=== PATIENT | female | born 1940 | race Caucasian/White ===

== ENCOUNTER 2017-04-13 13:15 | Inpatient (IN) ==
[2017-04-13] MEDS ORDERED: methylPREDNISolone 125 MG/2 ML VIAL IVP ONE (13:18)
[2017-04-13] MEDS ORDERED: Ipratropium/Albuterol Neb 3 ML IH ONE (13:22)
[2017-04-13 13:55] LABS: Immature Granulocytes % 0.4 % (0-4)
[2017-04-13 13:57] LABS: Basophils # 0.1 K/mcL (0.0-0.2); Basophils % 0.7 %; Eosinophils # 0.2 K/mcL (0.0-0.6); Eosinophils % 1.7 %; Hematocrit 36.6 % (35.3-44.9); Hemoglobin 10.4 g/dL (11.5-15.4); Lymphocytes # 1.4 K/mcL (0.6-4.6); Lymphocytes % 14.8 %; Mean Corpuscular HGB Conc 28.4 g/dL (31.6-35.5); Mean Corpuscular Hemoglobin 26.3 pg (28.0-33.3); Mean Corpuscular Volume 92.4 fL (83.0-100.0); Mean Platelet Volume 9.8 fL (9.4-12.4); Monocytes # 0.6 K/mcL (0.0-1.3); Monocytes % 6.3 %; Neutrophils # 7.2 K/mcL (1.6-8.9); Platelet Count 264 K/mcL (140-400); Red Blood Count 3.96 M/mcL (3.82-4.97); Red Cell Distribution Width 17.6 % (11.5-14.5); Segmented Neutrophils % 76.1 %
[2017-04-13 14:07] LABS: BUN/Creatinine Ratio 21 (6-26); Blood Urea Nitrogen 20 mg/dL (7-20); Calcium 9.8 mg/dL (8.6-10.8); Carbon Dioxide 36 mEq/L (19-29); Chloride 100 mEq/L (98-109); Glucose 137 mg/dL (70-99); Osmolality,Calculated 303 (280-300); Potassium 3.9 mEq/L (3.5-4.5); Sodium 144 mEq/L (136-145); eGFR For African Americans > 60 (> 60); eGFR For Non-African Americans 58 (> 60)
--- NOTE | 2017-04-13 14:32 | Emergency Department Note ---
Disposition Clinical Impression: Atrial fibrillation with RVR Acute exacerbation of congestive heart failure Qualifiers: Congestive heart failure type: systolic Qualified Code(s): I50.23 - Acute on chronic systolic (congestive) heart failure Disposition: Home, Self-Care Time of Disposition: 16:48 General Adult HPI - General Chief complaint: ED Shortness of Breath/Dyspnea Stated complaint: SOB Time Seen by Provider: 04/13/17 13:16 Source: patient Limitations: no limitations Nursing Notes Reviewed: Yes Vital Signs Reviewed: Yes - History of Present Illness HPI Narrative: Patient is a 76-year-old female with history of COPD, CHF and is a patient of Dr. Cornejo. Patient was brought in by EMS secondary to the shortness of breath while at [facility] today. Patient is on O2 at home usually has O2 in her car. Patient was in a motorized scooter at the time of the without her O2. EMS states patient had profound hypoxia at 64% and patient would not lay back secondary for worsening of her shortness of breath. Pain Scale: 0 - Related Data Home Medications Medication Instructions Recorded Confirmed Albuterol Neb [Proventil Neb] 2.5 mg IH Q4HR PRN 09/27/15 04/13/17 Albuterol Sulfate [Albuterol 1 - 2 puff IH Q6HR 09/27/15 04/13/17 Inhaler] Aspirin [Adult Low Dose Aspirin EC] 81 mg PO DAILY 09/27/15 04/13/17 Budesonide/Formoterol 160/4.5 2 puff IH BIDR 09/27/15 04/13/17 [Symbicort 160/4.5] Cholecalciferol (Vitamin D3) 5,000 unit PO DAILY 09/27/15 04/13/17 [Vitamin D3] Citalopram Hydrobromide [Celexa] 20 mg PO DAILY 09/27/15 04/13/17 Esomeprazole Magnesium [Nexium] 40 mg PO DAILY 09/27/15 04/13/17 LORazepam [Ativan] 2 mg PO HS 09/27/15 04/13/17 Montelukast [Singulair] 10 mg PO DAILY 09/27/15 04/13/17 amLODIPine [Norvasc] 5 mg PO DAILY 09/27/15 04/13/17 Oxygen 4 l NS CONT 01/01/16 04/13/17 Atorvastatin [Lipitor] 10 mg PO HS 04/13/17 04/13/17 Ezetimibe [Zetia] 10 mg PO DAILY 04/13/17 04/13/17 Furosemide [Lasix] 80 mg PO Q48H 04/13/17 04/13/17 Metoprolol Succinate 100 mg PO DAILY 04/13/17 04/13/17 Omeprazole [PriLOSEC] 20 mg PO DAILY 04/13/17 04/13/17 Oxycodone HCl/Acetaminophen 1 tab PO Q4H PRN 04/13/17 04/13/17 [Percocet 10-325 mg Tablet] Rivaroxaban [Xarelto] 20 mg PO DAILY 04/13/17 04/13/17 Allergies Allergy/AdvReac Type Severity Reaction Status Date / Time codeine AdvReac Nausea Verified 01/01/16 07:19 All systems ED: reviewed and negative except as stated. Review of Systems: As Per HPI Constitutional: Denies: fever, chills, weakness Eyes: Denies: vision change ENT ED: Denies: congestion Cardiovascular: Reports: dyspnea on exertion, orthopnea. Denies: chest pain Respiratory: Reports: dyspnea Gastrointestinal: Denies: abdominal pain, nausea, vomiting, diarrhea Genitourinary: Denies: urgency, dysuria, frequency Musculoskeletal: Denies: back pain Neurological: Denies: headache Psychiatric: Reports: anxiety Endocrine: Reports: fatigue Past Medical History - Past Medical History Attestation: Yes The following information was validated with the patient. Medical history: Reports: arthritis, asthma, COPD, coronary artery disease, diabetes, GERD, hyperlipidemia, hypertension, osteoporosis, other Surgical history: Reports: non-contributory, carotid endarterectomy, cholecystectomy, hysterectomy, other Psychiatric history: Reports: anxiety, depression - Social History Smoking Status: Former smoker Smokeless Tobacco Status: No Alcohol use: Reports: none Drug use: Reports: none Physical Exam Vital Signs Temperature 97.9 F 04/13/17 13:19 Pulse Rate 122 04/13/17 13:19 Respiratory Rate 26 04/13/17 13:19 Blood Pressure 141/76 04/13/17 13:19 O2 Sat by Pulse Oximetry 95 04/13/17 13:19 Temperature 97.9 F 04/13/17 13:19 Pulse Rate 101 04/13/17 15:04 Respiratory Rate 22 04/13/17 15:04 Blood Pressure 122/93 04/13/17 15:04 O2 Sat by Pulse Oximetry 95 04/13/17 15:04 Oxygen Delivery Oxygen Delivery Bipap Patient is a 76-year-old female who is alert and oriented 3 and in acute distress. Patient has come conversational dyspnea, sitting erect on the cot and cannot recline without feeling shortness of breath. - General Limitations: no limitations General appearance: alert, anxious - Head Head exam: atraumatic, normocephalic, normal inspection - Eye Eye exam: Present: normal appearance, PERRL, EOMI - ENT ENT exam: normal exam, normal oropharynx, mucous membranes moist - Neck Neck exam: Present: normal inspection, full ROM, trachea midline - Chest Chest inspection: Present: normal inspection, symmetric chest wall rise. Absent : tenderness - Respiratory Respiratory exam: Present: respiratory distress, wheezes, accessory muscle use, other (Bilateral Rales lower lung luther as well as diminished lung sounds in lower lung luther. ) - Cardiovascular Cardiovascular exam: Present: irregular rhythm. Absent: regular rate - Abdominal Exam Abdominal exam: Present: soft. Absent: distention Course Vital Signs Temperature 97.9 F 04/13/17 13:19 Pulse Rate 122 04/13/17 13:19 Respiratory Rate 26 04/13/17 13:19 Blood Pressure 141/76 04/13/17 13:19 O2 Sat by Pulse Oximetry 95 04/13/17 13:19 Temperature 97.9 F 04/13/17 13:19 Pulse Rate 108 04/13/17 15:56 Respiratory Rate 22 04/13/17 15:56 Blood Pressure 104/60 04/13/17 15:56 O2 Sat by Pulse Oximetry 92 04/13/17 15:56 Oxygen Delivery Oxygen Delivery Nasal Cannula Medical Decision Making - [facility] Narrative Medical decision making narrative: Patient brought in for shortness of breath with orthopnea and severe hypoxia is in CHF exacerbation. Patient is placed on BiPAP. Chest x-ray shows no pneumonia, but shows pulmonary vascular congestion. Patient has elevation of her BNP. Patient was started on Lasix 40 mg IV. Patient is also in A. fib RVR. Was placed on BiPAP patient's rate improved. The patient's currently not in RPR still in A. fib. After BiPAP patients able to breathe comfortably. Patient has no regular Diane abnormalities at this time. Lactic acid and troponin were negative for elevations Patient is being admitted for CHF exacerbation with A. fib RVR. Patient understands and agrees to a decision to admit. Dr. Ca the hospitalist who accepted patient for admission at 1544 hrs. - Lab Data Lab results reviewed: Yes I reviewed the patient's lab results. Lab results narrative: Short CBC 04/13/17 Range/Units 13:40 WBC 9.4 (4.3-11.1) K/mcL Hgb 10.4 L (11.5-15.4) g/dL Hct 36.6 (35.3-44.9) % Plt Count 264 (140-400) K/mcL Neutrophils # 7.2 (1.6-8.9) K/mcL BMP 04/13/17 Range/Units 13:40 Sodium 144 (136-145) mEq/L Potassium 3.9 (3.5-4.5) mEq/L Chloride 100 (98-109) mEq/L Carbon Dioxide 36 H (19-29) mEq/L BUN 20 (7-20) mg/dL Creatinine 0.94 (0.57-1.11) mg/dL Glucose 137 H (70-99) mg/dL Calcium 9.8 (8.6-10.8) mg/dL Cardiac Enzymes 04/13/17 Range/Units 13:40 Troponin I 0.02 (0-0.03) ng/mL Result diagrams: 04/13/17 13:40 04/13/17 13:40 Lab Results 04/13/17 04/13/17 04/13/17 Range/Units 13:40 13:40 13:40 WBC 9.4 (4.3-11.1) K/mcL RBC 3.96 (3.82-4.97) M/mcL Hgb 10.4 L (11.5-15.4) g/dL Hct 36.6 (35.3-44.9) % MCV 92.4 (83.0-100.0) fL MCH 26.3 L (28.0-33.3) pg MCHC 28.4 L (31.6-35.5) g/dL RDW 17.6 H (11.5-14.5) % Plt Count 264 (140-400) K/mcL MPV 9.8 (9.4-12.4) fL Immature Gran % 0.4 (0-4) % Seg Neutrophils % 76.1 % Lymphocytes % 14.8 % Monocytes % 6.3 % Eosinophils % 1.7 % Basophils % 0.7 % Neutrophils # 7.2 (1.6-8.9) K/mcL Lymphocytes # 1.4 (0.6-4.6) K/mcL Monocytes # 0.6 (0.0-1.3) K/mcL Eosinophils # 0.2 (0.0-0.6) K/mcL Basophils # 0.1 (0.0-0.2) K/mcL Platelet Estimate Normal (Normal) Hypochromasia Present A (Not Present) Anisocytosis 1+ A (Not Present) Sodium 144 (136-145) mEq/L Potassium 3.9 (3.5-4.5) mEq/L Chloride 100 (98-109) mEq/L Carbon Dioxide 36 H (19-29) mEq/L BUN 20 (7-20) mg/dL Creatinine 0.94 (0.57-1.11) mg/dL Est GFR ( Amer) > 60 (> 60) Est GFR (Non-Af Amer) 58 L (> 60) BUN/Creatinine Ratio 21 (6-26) Glucose 137 H (70-99) mg/dL Calculated Osmolality 303 H (280-300) Lactic Acid 1.7 (0.5-2.2) mmol/L Calcium 9.8 (8.6-10.8) mg/dL Troponin I (0-0.03) ng/mL B-Natriuretic Peptide (0-100) pg/mL 04/13/17 04/13/17 Range/Units 13:40 13:40 WBC (4.3-11.1) K/mcL RBC (3.82-4.97) M/mcL Hgb (11.5-15.4) g/dL Hct (35.3-44.9) % MCV (83.0-100.0) fL MCH (28.0-33.3) pg MCHC (31.6-35.5) g/dL RDW (11.5-14.5) % Plt Count (140-400) K/mcL MPV (9.4-12.4) fL Immature Gran % (0-4) % Seg Neutrophils % % Lymphocytes % % Monocytes % % Eosinophils % % Basophils % % Neutrophils # (1.6-8.9) K/mcL Lymphocytes # (0.6-4.6) K/mcL Monocytes # (0.0-1.3) K/mcL Eosinophils # (0.0-0.6) K/mcL Basophils # (0.0-0.2) K/mcL Platelet Estimate (Normal) Hypochromasia (Not Present) Anisocytosis (Not Present) Sodium (136-145) mEq/L Potassium (3.5-4.5) mEq/L Chloride (98-109) mEq/L Carbon Dioxide (19-29) mEq/L BUN (7-20) mg/dL Creatinine (0.57-1.11) mg/dL Est GFR ( Amer) (> 60) Est GFR (Non-Af Amer) (> 60) BUN/Creatinine Ratio (6-26) Glucose (70-99) mg/dL Calculated Osmolality (280-300) Lactic Acid (0.5-2.2) mmol/L Calcium (8.6-10.8) mg/dL Troponin I 0.02 (0-0.03) ng/mL B-Natriuretic Peptide 779 H (0-100) pg/mL - Radiology Data Radiology results reviewed: Yes I reviewed the patient's radiology results. Chest X-Ray 04/13/17 13:18 IMPRESSION: Cardiomegaly with vascular congestion. D/ / Ramses Zuniga MD / Ramses Zuniga MD Interpreting Provider: Ramses Zuniga MD - EKG Data EKG #1 EKG attestation: Yes I reviewed and interpreted this EKG. EKG results narrative: EKG taken 04/13/2017 at 1345 hrs. shows A. fib RVR at a rate of [address] depression in V2 and V3. No acute ST elevations any leads. No QRS widening or QT prolongation his EKG shows sinus rhythm at a rate of [address] elevations or depressions in any leads. This EKG taken 12/14/2015 Attestation Statement - Attestation Attestation: I, Zackery Greer DO, examined this patient [id number] and my medical decision-making was reviewed with Dr. Nadeem Wade, Resident Physician. I agree with the documented findings, disposition and treatment plan as described except to the extent set forth below. Please see my progress notes for details.
[2017-04-13 14:34] LABS: Anisocytosis 1+ (Not Present); Hypochromasia Present (Not Present); Platelet Estimate Normal (Normal)
[2017-04-13] MEDS ORDERED: Furosemide 40 MG/4 ML VIAL IVP ONE (14:40)
--- NOTE | 2017-04-13 15:11 | Emergency Department Note ---
Disposition Disposition: Home, Self-Care Referrals: Igor Fuentes Jr, MD [Primary Care Provider] - Forms: ED Satisfaction Letter General Adult HPI - General Chief complaint: ED Shortness of Breath/Dyspnea Stated complaint: SOB Time Seen by Provider: 04/13/17 13:16 Source: patient Limitations: no limitations - History of Present Illness Pain Scale: 0 - Related Data Home Medications Medication Instructions Recorded Confirmed Albuterol Neb [Proventil Neb] 2.5 mg IH Q4HR PRN 09/27/15 04/13/17 Albuterol Sulfate [Albuterol 1 - 2 puff IH Q6HR 09/27/15 04/13/17 Inhaler] Aspirin [Adult Low Dose Aspirin EC] 81 mg PO DAILY 09/27/15 04/13/17 Budesonide/Formoterol 160/4.5 2 puff IH BIDR 09/27/15 04/13/17 [Symbicort 160/4.5] Cholecalciferol (Vitamin D3) 5,000 unit PO DAILY 09/27/15 04/13/17 [Vitamin D3] Citalopram Hydrobromide [Celexa] 20 mg PO DAILY 09/27/15 04/13/17 Esomeprazole Magnesium [Nexium] 40 mg PO DAILY 09/27/15 04/13/17 LORazepam [Ativan] 2 mg PO HS 09/27/15 04/13/17 Montelukast [Singulair] 10 mg PO DAILY 09/27/15 04/13/17 amLODIPine [Norvasc] 5 mg PO DAILY 09/27/15 04/13/17 Oxygen 4 l NS CONT 01/01/16 04/13/17 Atorvastatin [Lipitor] 10 mg PO HS 04/13/17 04/13/17 Ezetimibe [Zetia] 10 mg PO DAILY 04/13/17 04/13/17 Furosemide [Lasix] 80 mg PO Q48H 04/13/17 04/13/17 Metoprolol Succinate 100 mg PO DAILY 04/13/17 04/13/17 Omeprazole [PriLOSEC] 20 mg PO DAILY 04/13/17 04/13/17 Oxycodone HCl/Acetaminophen 1 tab PO Q4H PRN 04/13/17 04/13/17 [Percocet 10-325 mg Tablet] Rivaroxaban [Xarelto] 20 mg PO DAILY 04/13/17 04/13/17 Allergies Allergy/AdvReac Type Severity Reaction Status Date / Time codeine AdvReac Nausea Verified 01/01/16 07:19 Past Medical History - Past Medical History Medical history: Reports: arthritis, asthma, COPD, coronary artery disease, diabetes, GERD, hyperlipidemia, hypertension, osteoporosis, other Surgical history: Reports: non-contributory, carotid endarterectomy, cholecystectomy, hysterectomy, other Psychiatric history: Reports: anxiety, depression - Social History Smoking Status: Former smoker Smokeless Tobacco Status: No Alcohol use: Reports: none Drug use: Reports: none Physical Exam - General Limitations: no limitations General appearance: alert, anxious Course Vital Signs Temperature 97.9 F 04/13/17 13:19 Pulse Rate 122 04/13/17 13:19 Respiratory Rate 26 04/13/17 13:19 Blood Pressure 141/76 04/13/17 13:19 O2 Sat by Pulse Oximetry 95 04/13/17 13:19 Temperature 97.9 F 04/13/17 13:19 Pulse Rate 101 04/13/17 15:04 Respiratory Rate 22 04/13/17 15:04 Blood Pressure 122/93 04/13/17 15:04 O2 Sat by Pulse Oximetry 95 04/13/17 15:04 Oxygen Delivery Oxygen Delivery Bipap Medical Decision Making - Lab Data Result diagrams: 04/13/17 13:40 04/13/17 13:40 Lab Results 04/13/17 04/13/17 04/13/17 Range/Units 13:40 13:40 13:40 WBC 9.4 (4.3-11.1) K/mcL RBC 3.96 (3.82-4.97) M/mcL Hgb 10.4 L (11.5-15.4) g/dL Hct 36.6 (35.3-44.9) % MCV 92.4 (83.0-100.0) fL MCH 26.3 L (28.0-33.3) pg MCHC 28.4 L (31.6-35.5) g/dL RDW 17.6 H (11.5-14.5) % Plt Count 264 (140-400) K/mcL MPV 9.8 (9.4-12.4) fL Immature Gran % 0.4 (0-4) % Seg Neutrophils % 76.1 % Lymphocytes % 14.8 % Monocytes % 6.3 % Eosinophils % 1.7 % Basophils % 0.7 % Neutrophils # 7.2 (1.6-8.9) K/mcL Lymphocytes # 1.4 (0.6-4.6) K/mcL Monocytes # 0.6 (0.0-1.3) K/mcL Eosinophils # 0.2 (0.0-0.6) K/mcL Basophils # 0.1 (0.0-0.2) K/mcL Platelet Estimate Normal (Normal) Hypochromasia Present A (Not Present) Anisocytosis 1+ A (Not Present) Sodium 144 (136-145) mEq/L Potassium 3.9 (3.5-4.5) mEq/L Chloride 100 (98-109) mEq/L Carbon Dioxide 36 H (19-29) mEq/L BUN 20 (7-20) mg/dL Creatinine 0.94 (0.57-1.11) mg/dL Est GFR ( Amer) > 60 (> 60) Est GFR (Non-Af Amer) 58 L (> 60) BUN/Creatinine Ratio 21 (6-26) Glucose 137 H (70-99) mg/dL Calculated Osmolality 303 H (280-300) Lactic Acid 1.7 (0.5-2.2) mmol/L Calcium 9.8 (8.6-10.8) mg/dL Troponin I (0-0.03) ng/mL B-Natriuretic Peptide (0-100) pg/mL 04/13/17 04/13/17 Range/Units 13:40 13:40 WBC (4.3-11.1) K/mcL RBC (3.82-4.97) M/mcL Hgb (11.5-15.4) g/dL Hct (35.3-44.9) % MCV (83.0-100.0) fL MCH (28.0-33.3) pg MCHC (31.6-35.5) g/dL RDW (11.5-14.5) % Plt Count (140-400) K/mcL MPV (9.4-12.4) fL Immature Gran % (0-4) % Seg Neutrophils % % Lymphocytes % % Monocytes % % Eosinophils % % Basophils % % Neutrophils # (1.6-8.9) K/mcL Lymphocytes # (0.6-4.6) K/mcL Monocytes # (0.0-1.3) K/mcL Eosinophils # (0.0-0.6) K/mcL Basophils # (0.0-0.2) K/mcL Platelet Estimate (Normal) Hypochromasia (Not Present) Anisocytosis (Not Present) Sodium (136-145) mEq/L Potassium (3.5-4.5) mEq/L Chloride (98-109) mEq/L Carbon Dioxide (19-29) mEq/L BUN (7-20) mg/dL Creatinine (0.57-1.11) mg/dL Est GFR ( Amer) (> 60) Est GFR (Non-Af Amer) (> 60) BUN/Creatinine Ratio (6-26) Glucose (70-99) mg/dL Calculated Osmolality (280-300) Lactic Acid (0.5-2.2) mmol/L Calcium (8.6-10.8) mg/dL Troponin I 0.02 (0-0.03) ng/mL B-Natriuretic Peptide 779 H (0-100) pg/mL
--- NOTE | 2017-04-13 15:14 | Emergency Department Note ---
START Narrative - START START: Patient seen and examined the time of arrival by EMS. 76-year-old female presents with shortness of breath. She had intermittent symptoms with this over the last several years including COPD and congestive heart failure. She has not been using her CPAP machine at night secondary to breaking. She does require oxygen throughout the day. She was using her oxygen today and coming into the grocery store when she gets significantly short of breath and decided to come to the emergency room. Symptoms of an coming on over the last several weeks. Patient denies any chest pain she does have exertional and conversational dyspnea at this point. She also has visible orthopnea. Lungs are clear except for some intermittent wheezing in the periphery of the lung luther. Patient's heart is tachycardic with known A. fib. Most likely secondary to respiratory demand at this time. Abdomen is soft nontender nondistended she does have pitting edema in the lower extremities. Concern is noted for fluid overload, acute exacerbation of A. fib with RVR, congestive heart failure. Patient be treated as such with troponin chest x-ray EKG. Left relative to be completed. First dose of IV Lasix to be given and BiPAP to be applied. Disposition will most likely admission to the hospital. Prostate 35 minutes of critical care provider this patient independent of medical intervention procedures or consultations. EKG shows A. fib with tachycardia with normal morphology comparison to previous EKGs. Chest x-ray and the rest of laboratory workup are pending patient will need admission for definitive evaluation and management see detailed documentation of the physical exam, medical intervention, medical decision-making, consultations and disposition and the resident physician's note [id number] Heart rate has resolved with the BiPAP machine. Patient does have clinical findings concerning for fluid overload and congestive heart failure. Hypoxia was resolved with oxygen being applied here. Admission process to be completed.
[2017-04-13] MEDS ORDERED: Naloxone 0.4 MG/ML INJ IVP PRN (16:26)
[2017-04-13] MEDS ORDERED: Ondansetron 4 MG/2 ML VIAL IVP PRN (16:26)
[2017-04-13] MEDS ORDERED: Albuterol 2.5 MG/3 ML NEBULIZER IH PRN (16:31)
[2017-04-13] MEDS ORDERED: Dextrose Gel 15 GM PO PRN ×2 (16:31)
[2017-04-13] MEDS ORDERED: D5% in Water 1,000 ML IVC PRN (16:31)
[2017-04-13] MEDS ORDERED: *HR* Dextrose 50 % in Water (Syg) 50 ML SYRINGE IVP PRN (16:31)
--- NOTE | 2017-04-13 18:08 | Internal Med History&Physical ---
Date of Encounter: 04/14/17 Time of Encounter: 18:08 Assessment and Plan (1) Acute and chronic respiratory failure with hypoxia Current visit: No Status: Acute 1 patient has been experiencing increasing shortness of breath most likely related to diastolic heart failure from A. fib RVR response. We will diurese, rate control as well as oxygen titrated to maintain SPO2 greater than 92% (2) Atrial fibrillation with RVR Current visit: Yes Status: Acute 1 present with A. fib RVR will continue with Xarelto as well as metoprolol for rate control 2. Consult cardiology 3 continues cardiac monitoring (3) Acute exacerbation of congestive heart failure Current visit: Yes Status: Acute Echo 05/14 showed EF of 60% with mild diastolic dysfunction. We will continue diuresis patient Continue with oxygen titrated to maintain SPO2 greater than 92% Continuous cardiac monitoring Fluid restriction low sodium diet Monitor intake and output daily weights Qualifiers: Congestive heart failure type: systolic Qualified Code(s): I50.23 - Acute on chronic systolic (congestive) heart failure (4) Acute exacerbation of chronic obstructive airways disease Current visit: No Status: Acute 1 . Patient has history of COPD oxygen dependent. We will continue with oxygen titrating to maintain SPO2 greater than 92% 2 continue with bronchodilators 3 oral steroids to taper (5) Diabetes mellitus Current visit: No Status: Acute Accu-Cheks before meals at bedtime for sinus, insulin 2 diabetic diet Qualifiers: Diabetes mellitus type: type 2 Diabetes mellitus complication status: without complication Diabetes mellitus long term care administrator insulin use: with long term care administrator use Qualified Code(s): E11.9 - Type 2 diabetes mellitus without complications ; Z79.4 - retirement (current) use of insulin; Z79.4 - retirement (current) use of insulin; 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 Castillo is a 76 year old female COPD I will should dependent CHF CAD nonobstructive diabetes GERD CRISTOPHER paroxysmal atrial fibrillation carotid stenosis. According to the patient she has been experiencing intermittent shortness of breath and a few months ago she was hospitalized at [facility] at that time she was diagnosed with atrial fibrillation was placed on Xarelto. She does have obstructive sleep apnea and is on CPAP at night however she has not been using it due to machine is broken. She was referred to cardiology and was seen by Dr. Segal today after office visit she is going to the grocery store and was walking into the store and was becoming increasing short of breath with some intermittent shoulder pain which resolved on its own. She was brought to the ER for evaluation and upon presentation tachycardic in A. fib RVR tachypneic with conversational dyspnea and intermittent wheezing. Chest x-ray showed vascular congestion and cardiomegaly elevated BNP at 779 lactate was 1.7 troponin is 0.02 she was given IV Lasix as well as steroids and has been admitted for further workup and evaluation. Presently patient does appear to display conversational dyspnea and become short of breath on exertion. She has faint expiratory wheeze SPO2 is 92% on 3 L nasal cannula. Otherwise she is hemodynamically stable Past Med Surg Social Fam HX - Past Medical History Medical history: arthritis, asthma, COPD, coronary artery disease, diabetes, GERD, hyperlipidemia, hypertension, osteoporosis, other Psychiatric history: anxiety, depression - Past Surgical History Surgical History: non-contributory, carotid endarterectomy, cholecystectomy, hysterectomy, other - Social History Smoking Status: Former smoker Smokeless Tobacco Status: No Alcohol use: none Drug use: none - Family History Mother Living Status: Hx Family Cardiac Disorders: Yes ([place]) Hx Family Respiratory Disorders: No Hx Family Cancer: No Hx Family GI Disorders: Yes Internal Medicine - H&P: Meds Albuterol Neb [Proventil Neb] 2.5 mg IH Q4HR PRN 09/27/15 [History] Albuterol Sulfate [Albuterol Inhaler] 1 - 2 puff IH Q6HR 09/27/15 [History] Aspirin [Adult Low Dose Aspirin EC] 81 mg PO DAILY 09/27/15 [History] Budesonide/Formoterol 160/4.5 [Symbicort 160/4.5] 2 puff IH BIDR 09/27/15 [ History] Cholecalciferol (Vitamin D3) [Vitamin D3] 5,000 unit PO DAILY 09/27/15 [History] Citalopram Hydrobromide [Celexa] 20 mg PO DAILY 09/27/15 [History] Esomeprazole Magnesium [Nexium] 40 mg PO DAILY 09/27/15 [History] LORazepam [Ativan] 2 mg PO HS 09/27/15 [History] Montelukast [Singulair] 10 mg PO DAILY 09/27/15 [History] amLODIPine [Norvasc] 5 mg PO DAILY 09/27/15 [History] Oxygen 4 l NS CONT 01/01/16 [History] Atorvastatin [Lipitor] 10 mg PO HS 04/13/17 [History] Ezetimibe [Zetia] 10 mg PO DAILY 04/13/17 [History] Furosemide [Lasix] 80 mg PO Q48H 04/13/17 [History] Metoprolol Succinate 100 mg PO DAILY 04/13/17 [History] Omeprazole [PriLOSEC] 20 mg PO DAILY 04/13/17 [History] Oxycodone HCl/Acetaminophen [Percocet 10-325 mg Tablet] 1 tab PO Q4H PRN [History] Rivaroxaban [Xarelto] 20 mg PO DAILY 04/13/17 [History] 3 Allergy/AdvReac Type Severity Reaction Status Date / Time codeine AdvReac Nausea Verified 01/01/16 07:19 All Systems PM: A 10-system review of systems was performed and is negative for pertinent findings except as documented above in the HPI. - Constitutional Constitutional: fatigue, no chills, no fever(s), no night sweats - EENT Eyes: no change in vision, no discharge, no pain, no photophobia Nose, mouth and throat: no dysphagia, no nasal discharge, no neck pain, no sore throat - Cardiovascular Cardiovascular ROS IM: dyspnea, dyspnea on exertion, orthopnea, no chest pain, no diaphoresis, no lightheadedness, no palpitations, no syncope - Respiratory Respiratory: wheezing, no cough, no dyspnea, no excessive phlegm production - Gastrointestinal Gastrointestinal: no abdominal pain, no diarrhea, no hematemesis, no hematochezia, no melena, no nausea, no vomiting - Genitourinary Genitourinary: no change in urinary stream, no dysuria, no flank pain, no hematuria - Musculoskeletal Musculoskeletal ROS IM: no numbness, no tingling - Integumentary Integumentary IM: no rash, no unusual bruising - Neurological Neurological ROS: no confusion, no convulsions, no focal weakness, no numbness, no tingling, no tremor(s) - Constitutional Vitals: Temp Pulse Resp BP Pulse Ox 97.9 F 64 22 83/69 93 04/13/17 17:03 04/13/17 17:30 04/13/17 17:30 04/13/17 17:30 04/13/17 17:30 General appearance: Present: A&O X 3, answers questions appropriately - Head Head exam: Present: atraumatic, normocephalic - Eye Eye exam: Present: PERRL, conjuntiva pink, sclera anicteric Pupils: Present: PERRL - Neck Neck exam general surgery: Present: supple, trachea midline. Absent: lymphadenopathy - Respiratory Respiratory exam: Present: wheezes - Cardiovascular Cardiovascular exam: Present: RRR, +S1, +S2. Absent: diastolic murmur, gallop, rubs, systolic murmur - GI/Abdominal GI/Abdominal exam: Present: normal bowel sounds, soft, no peritoneal signs. Absent: distended, tenderness - Extremities Exam Extremities exam: Present: warm, radial pulses palpable and symmetrical. Absent : calf tenderness, cyanotic, pedal edema - Neurological Exam Neurological exam: Present: CN II-XII intact, oriented X3, no focal deficits. Absent: pronater drift, facial droop, speech deficit Internal Med - H&P Results - Labs CBC & Chem 7: 04/13/17 13:40 04/13/17 13:40 - EKG Data EKG comments: 04/13/17 19:06 Atrial fibrillation with RVR - Diagnostic Studies Other Images Additional comments: Chest X-Ray 04/13/17 13:18 IMPRESSION: Cardiomegaly with vascular congestion. D/ / Ramses Zuniga MD / Rmases Zuniga MD Interpreting Provider: Ramses Zuniga MD
[2017-04-13] MEDS: methylPREDNISolone 125 MG/2 ML VIAL IVP SCH ×2 (18:51→23:30)
[2017-04-13] MEDS: Ipratropium/Albuterol Neb 3 ML IH SCH ×2 (20:06→23:34)
[2017-04-13] MEDS: Budesonide/Formoterol 160/4.5 MDI IH SCH (20:06)
[2017-04-13] MEDS: *HR* LORazepam 1 MG TABLET PO SCH (21:24)
[2017-04-13] MEDS: Insulin LISPRO 300 UNITS/3 ML VIAL SQ SCH (21:44)
[2017-04-13] MEDS: Acetaminophen 325 MG TABLET PO PRN (23:29)
[2017-04-14] MEDS ORDERED: *HR* Digoxin 0.5 MG/2 ML AMPUL IVP ONE (00:40)
--- NOTE | 2017-04-14 00:40 | Event Note ---
Date of Encounter: 04/14/17 Time of Encounter: 00:36 Patient seen and examined with nurse practitioner. Agree with assessment and plan. Patient presents with shortness of breath due to diastolic congestive heart failure likely related to atrial fibrillation with rapid ventricular response. Start patient on IV Lasix. Patient also has an element of COPD with mild exacerbation. We will keep her on as needed nebulizer treatment as well as steroids. Patient also has slight redness warmth and tenderness of the left leg due to cellulitis so will start the patient on Bactrim. Patient has a-fib with rapid response rate currently is in the 120s. Will give the patient digoxin .25 mg IV push once since her blood pressure is borderline low. Will hold blood pressure lowering medications for now. Full code
[2017-04-14 01:31] LABS: Basophils % 0.3 %; Hemoglobin 9.8 g/dL (11.5-15.4); Mean Platelet Volume 9.9 fL (9.4-12.4)
[2017-04-14 01:33] LABS: Hematocrit 33.6 % (35.3-44.9); Lymphocytes # 0.5 K/mcL (0.6-4.6); Lymphocytes % 7.3 %; Mean Corpuscular HGB Conc 29.2 g/dL (31.6-35.5); Mean Corpuscular Hemoglobin 26.2 pg (28.0-33.3); Mean Corpuscular Volume 89.8 fL (83.0-100.0); Monocytes % 0.5 %; Neutrophils # 6.6 K/mcL (1.6-8.9); Platelet Count 271 K/mcL (140-400); Red Blood Count 3.74 M/mcL (3.82-4.97); Red Cell Distribution Width 17.4 % (11.5-14.5); Segmented Neutrophils % 90.9 %
[2017-04-14 01:50] LABS: BUN/Creatinine Ratio 20 (6-26); Blood Urea Nitrogen 20 mg/dL (7-20); Calcium 9.6 mg/dL (8.6-10.8); Carbon Dioxide 33 mEq/L (19-29); Chloride 98 mEq/L (98-109); Cholesterol 157 mg/dL (< 200); Glucose 258 mg/dL (70-99); HDL Cholesterol 39 mg/dL (40-59); LDL Cholesterol,Calculated 100 mg/dL (0-99); Magnesium 1.9 mg/dL (1.6-2.6); Osmolality,Calculated 305 (280-300); Potassium 3.6 mEq/L (3.5-4.5); Sodium 142 mEq/L (136-145); Triglycerides 89 mg/dL (< 150); eGFR For African Americans > 60 (> 60); eGFR For Non-African Americans 54 (> 60)
[2017-04-14 02:19] LABS: Anisocytosis 1+ (Not Present); Hypochromasia Present (Not Present); Platelet Estimate Normal (Normal); Poikilocytosis 1+ (Not Present); Polychromasia 1+ (Not Present)
[2017-04-14] MEDS: Acetaminophen 325 MG TABLET PO PRN (04:39)
[2017-04-14] MEDS ORDERED: *HR* OxyCODONE/APAP 10/325 TABLET PO PRN (07:51)
[2017-04-14] MEDS: Budesonide/Formoterol 160/4.5 MDI IH SCH ×2 (08:03→22:40)
[2017-04-14] MEDS: predniSONE 20 MG TABLET PO SCH (08:15)
[2017-04-14] MEDS: *HR* Rivaroxaban 10 MG TABLET PO SCH (08:15)
[2017-04-14] MEDS: Metoprolol XL (24 HR) Succ 50 MG TAB.ER.24H PO SCH (08:16)
[2017-04-14] MEDS: Sulfamethoxazole/Trimeth DS 1 EACH TABLET PO SCH ×2 (08:16→21:20)
[2017-04-14] MEDS: Aspirin Enteric Coated 81 MG Tablet PO SCH (08:16)
[2017-04-14] MEDS: Cholecalciferol (D-3) 1,000 UNIT TABLET PO SCH (08:16)
[2017-04-14] MEDS: Insulin LISPRO 300 UNITS/3 ML VIAL SQ SCH ×4 (08:17→21:16)
[2017-04-14] MEDS: Furosemide 40 MG/4 ML VIAL IVP SCH (08:18)
[2017-04-14] MEDS ORDERED: Metoprolol XL (24 HR) Succ 50 MG TAB.ER.24H PO SCH (09:00)
[2017-04-14] MEDS ORDERED: Pantoprazole 40 MG VIAL IVP SCH (09:00)
[2017-04-14] MEDS ORDERED: amLODIPine 5 MG TABLET PO SCH (09:00)
--- NOTE | 2017-04-14 09:38 | Cardiology Consult Note ---
Date of Encounter: 04/14/17 Time of Encounter: 09:37 Assessment and Plan (1) Acute exacerbation of congestive heart failure Current Visit: Yes Status: Acute Suspected diastolic CHF driven by A-Fib RVR. Dyspnea also likely secondary to not wearing O2 all day yesterday, as she is usually on 3-4 L 19/01. BNP 779, CXR with cardiomegaly and vascular congestion. Reports LE edema is better than baseline. Reports drinking excess fluid >2L/day. Agree with IV diuresis. Recommend daily weights, Na and fluid restriction, strict I/Os. Echo 04/2016 EF 60%, mild diastolic dysfunction. Recheck echo to evaluate EF. If no significant findings on echo, anticipate sign off from cardio standpoint. Qualifiers: Congestive heart failure type: diastolic Qualified Code(s): I50.33 - Acute on chronic diastolic (congestive) heart failure (2) Atrial fibrillation with RVR Current Visit: Yes Status: Acute PAF. Converted back to SR this AM. Hr currently 70s, SR. Continue Toprol XL 100mg daily. Anticoagulated on Xarelto. HGB 9.8, tends to fluctuate. Denies active bleeding. Discussion w patient/family: The assessment and plan as outlined above was discussed with the patient and/or family members who expressed understanding and agreement. All questions were answered. Thank you for involving us in the care of your patient. Please call with any questions. I will discuss all the above with Dr. Phillips and make changes as necessary. History of Present Illness Consult date: 04/14/17 Requesting physician: Sylvia Woods Consult reason: Diastolic CHF, A-Fib RVR Chief complaint: Dyspnea, weakness History of present illness: Ms. Castillo is a 76 year old female with PMH of oxygen dependent COPD, diastolic CHF, nonobstructive CAD, diabetes, GERD, CRISTOPHER, paroxysmal atrial fibrillation, carotid stenosis. According to the patient she has been experiencing intermittent shortness of breath and a few months ago she was hospitalized at [facility] at that time she was diagnosed with atrial fibrillation was placed on Xarelto. She does have obstructive sleep apnea and is on CPAP at night however she has not been using it due to machine being broken. She was referred to cardiology and was seen by Dr. Reich yesterday. After her visit, she went to [employer] was walking into the store and became more short of breath with brief episode of left chest/shoulder pain which resolved on its own. She was brought to the ER for evaluation and upon presentation found to be in A. fib RVR tachypneic with conversational dyspnea and intermittent wheezing. Reports LE edema is actually improved. Chest x-ray showed vascular congestion and cardiomegaly, elevated BNP at 779. Cardiology consulted for further recommendations. Previous testing: ECG 08/2015: Sinus rhythm, anteroseptal T-wave inversions. LHC 10/01/2015: Left main normal. LAD proximal 30% stenosis. Circumflex mid 40% stenosis. RCA proximal and mid 30% stenoses. TTE 05/08/2016: LVEF 60%. Normal LV, RV size and function. Mild diastolic dysfunction. No significant valvular dysfunction. No pulmonary hypertension. Carotid duplex 09/2016: Right ICA severe stenosis. Left ICA minimal plaque formation. Past Med Surg Social Fam HX - Past Medical History Medical history: arthritis, asthma, atrial fibrillation, COPD, coronary artery disease, diabetes, GERD, hyperlipidemia, hypertension, osteoporosis, other Psychiatric history: anxiety, depression - Past Surgical History Surgical History: non-contributory, carotid endarterectomy, cholecystectomy, hysterectomy, other - Social History Smoking Status: Former smoker Smokeless Tobacco Status: No Alcohol use: none Drug use: none - Family History Mother Living Status: Hx Family Cardiac Disorders: Yes ([place]) Hx Family Respiratory Disorders: No Hx Family Cancer: No Hx Family GI Disorders: Yes Medications and Allergies Albuterol Neb [Proventil Neb] 2.5 mg IH Q4HR PRN 09/27/15 [History] Albuterol Sulfate [Albuterol Inhaler] 1 - 2 puff IH Q6HR 09/27/15 [History] Aspirin [Adult Low Dose Aspirin EC] 81 mg PO DAILY 09/27/15 [History] Budesonide/Formoterol 160/4.5 [Symbicort 160/4.5] 2 puff IH BIDR 09/27/15 [ History] Cholecalciferol (Vitamin D3) [Vitamin D3] 5,000 unit PO DAILY 09/27/15 [History] Citalopram Hydrobromide [Celexa] 20 mg PO DAILY 09/27/15 [History] Esomeprazole Magnesium [Nexium] 40 mg PO DAILY 09/27/15 [History] LORazepam [Ativan] 2 mg PO HS 09/27/15 [History] Montelukast [Singulair] 10 mg PO DAILY 09/27/15 [History] amLODIPine [Norvasc] 5 mg PO DAILY 09/27/15 [History] Oxygen 4 l NS CONT 01/01/16 [History] Atorvastatin [Lipitor] 10 mg PO HS 04/13/17 [History] Ezetimibe [Zetia] 10 mg PO DAILY 04/13/17 [History] Furosemide [Lasix] 80 mg PO Q48H 04/13/17 [History] Metoprolol Succinate 100 mg PO DAILY 04/13/17 [History] Omeprazole [PriLOSEC] 20 mg PO DAILY 04/13/17 [History] Oxycodone HCl/Acetaminophen [Percocet 10-325 mg Tablet] 1 tab PO Q4H PRN [History] Rivaroxaban [Xarelto] 20 mg PO DAILY 04/13/17 [History] 3 Allergy/AdvReac Type Severity Reaction Status Date / Time codeine AdvReac Nausea Verified 01/01/16 07:19 All Systems Review: A 10-system review of systems was performed and is negative for pertinent findings except as documented above in the HPI. - Constitutional Constitutional: weakness - Cardiovascular Cardiovascular: as per HPI, chest pain at rest, chest pain with exertion, dyspnea at rest, dyspnea on exertion - Respiratory Respiratory: dyspnea Physical Examination Vital Signs, Last 4 Hours Temp Pulse Resp BP Pulse Ox 04/14/17 08:04 18 93 04/14/17 07:26 150/95 04/14/17 07:00 97.8 F 81 19 89 Vital Signs Temp Pulse Resp BP Pulse Ox 04/14/17 08:04 18 93 04/14/17 07:26 150/95 04/14/17 07:00 97.8 F 81 19 89 04/14/17 04:36 97.7 F 77 24 127/86 91 04/14/17 00:22 98.5 F 126 22 97/64 92 04/14/17 00:02 22 96 04/13/17 23:34 20 98 04/13/17 21:29 98.0 F 107 24 98/75 99 04/13/17 21:22 94 04/13/17 20:07 18 94 04/13/17 17:30 64 22 83/69 93 04/13/17 17:03 97.9 F 24 108/62 04/13/17 15:56 108 22 104/60 92 04/13/17 15:04 101 22 122/93 95 04/13/17 13:51 103 24 116/55 98 04/13/17 13:29 28 98 04/13/17 13:19 97.9 F 122 26 141/76 95 Intake and Output 04/13/17 04/14/17 04/14/17 23:59 07:59 15:59 Intake Total 300 / 300 0 / 0 480 / 480 Balance 300 / 300 0 / 0 480 / 480 Intake: Oral 300 / 300 0 / 0 480 / 480 Other: Meal Breakfast Percent of Meal Consumed 100% # Voids 2 1 Weight 113 kg Blood Glucose* 254 187 General: Conversant, No Apparent Distress HEENT: Atraumatic, Normocephaly, Mucus Membranes Moist Neck: No JVD, Normal carotid pulses Cardiac: Other (irregularly irregular rhythm) Lungs: Other (diminished) Neuro: Alert and responsive, No focal deficits noted Abdomen: Soft, Non-Tender Skin: No rashes noted on visualized skin Musculoskeletal: No Chest Wall Tenderness Extremities: No Clubbing, No Cyanosis, No Edema, Normal Pulses Results 04/14/17 01:17 04/14/17 01:17 Lab Results 04/13/17 04/14/17 04/14/17 18:19 01:17 01:17 WBC 7.3 Hgb 9.8 L Hct 33.6 L Plt Count 271 Sodium Potassium Chloride Carbon Dioxide BUN Creatinine Glucose Calcium Magnesium Troponin I 0.02 0.01 04/14/17 01:17 WBC Hgb Hct Plt Count Sodium 142 Potassium 3.6 Chloride 98 Carbon Dioxide 33 H BUN 20 Creatinine 1.01 Glucose 258 H Calcium 9.6 Magnesium 1.9 Troponin I Short CBC 04/14/17 04/13/17 Range/Units 01:17 13:40 WBC 7.3 9.4 (4.3-11.1) K/mcL Hgb 9.8 L 10.4 L (11.5-15.4) g/dL Hct 33.6 L 36.6 (35.3-44.9) % Plt Count 271 264 (140-400) K/mcL Neutrophils # 6.6 7.2 (1.6-8.9) K/mcL BMP 04/14/17 04/13/17 Range/Units 01:17 13:40 Sodium 142 144 (136-145) mEq/L Potassium 3.6 3.9 (3.5-4.5) mEq/L Chloride 98 100 (98-109) mEq/L Carbon Dioxide 33 H 36 H (19-29) mEq/L BUN 20 20 (7-20) mg/dL Creatinine 1.01 0.94 (0.57-1.11) mg/dL Glucose 258 H 137 H (70-99) mg/dL Calcium 9.6 9.8 (8.6-10.8) mg/dL Cardiac Enzymes 04/14/17 04/13/17 04/13/17 Range/Units 01:17 18:19 13:40 Troponin I 0.01 0.02 0.02 (0-0.03) ng/mL Impressions Chest X-Ray 04/13/17 13:18 IMPRESSION: Cardiomegaly with vascular congestion. D/ / Ramses Zuniga MD / Ramses Zuniga MD Interpreting Provider: Ramses Zuniga MD Active Medications Acetaminophen (Tylenol) 650 mg PO Q6HR PRN PRN Reason: Mild Pain (1-3) Stop: 10/13/17 16:27 Last Admin: 04/14/17 04:39 Dose: 650 mg Albuterol Sulfate (Proventil Neb) 2.5 mg IH Q2H PRN PRN Reason: Shortness Of Breath/Wheezing Stop: 10/13/17 16:32 Aspirin (Aspirin Ec) 81 mg PO DAILY [facility] Stop: 10/14/17 09:01 Last Admin: 04/14/17 08:16 Dose: 81 mg Atorvastatin Calcium (Lipitor) 10 mg PO HS [facility] Stop: 10/13/17 21:01 Last Admin: 04/13/17 21:24 Dose: 10 mg Budesonide/Formoterol Fumarate (Symbicort) 2 puff IH BIDR [facility] PRN Reason: Protocol Stop: 10/13/17 22:01 Last Admin: 04/14/17 08:03 Dose: 2 puff Citalopram Hydrobromide (Celexa) 20 mg PO DAILY [facility] Stop: 10/14/17 09:01 Last Admin: 04/14/17 08:16 Dose: 20 mg Dextrose/Water (Dextrose 50% (Syg)) 25 ml IVP AD PRN PRN Reason: Hypoglycemia Stop: 10/13/17 16:32 Furosemide (Lasix) 40 mg IVP DAILY [facility] Stop: 10/14/17 09:01 Last Admin: 04/14/17 08:18 Dose: 40 mg Glucagon (Glucagen) 1 mg IM ONCE PRN PRN Reason: Hypoglycemia Stop: 10/13/17 16:32 Glucose (Gluctose) 15 gm PO ONCE PRN PRN Reason: Hypoglycemia Stop: 10/13/17 16:32 Glucose (Gluctose) 30 gm PO ONCE PRN PRN Reason: Hypoglycemia Stop: 10/13/17 16:32 Dextrose (Dextrose 5%) 1,000 mls @ 100 mls/hr IVC .Q10H PRN PRN Reason: HYPOGLYCEMIA Stop: 10/13/17 16:32 Insulin Human Lispro (Humalog) 0 units SQ HS [facility] PRN Reason: Protocol Stop: 10/13/17 21:01 Last Admin: 04/13/17 21:44 Dose: 3 units Insulin Human Lispro (Humalog) 0 units SQ TIDAC [facility] PRN Reason: Protocol Stop: 10/14/17 07:31 Last Admin: 04/14/17 08:17 Dose: 4 units Lorazepam (Ativan) 2 mg PO HS [facility] Stop: 10/13/17 21:01 Last Admin: 04/13/17 21:24 Dose: 2 mg Metoprolol Succinate (Toprol Xl) 100 mg PO DAILY [facility] Stop: 10/14/17 09:01 Last Admin: 04/14/17 08:16 Dose: 100 mg Montelukast Sodium (Singulair) 10 mg PO DAILY [facility] Stop: 10/14/17 09:01 Last Admin: 04/14/17 08:16 Dose: 10 mg Naloxone HCl (Narcan) 0.4 mg IVP Q2MIN PRN PRN Reason: Opioid Reversal Stop: 10/13/17 16:27 Ondansetron HCl (Zofran) 4 mg IVP Q8HR PRN PRN Reason: Nausea And Vomiting Stop: 10/13/17 16:27 Oxycodone/Acetaminophen (Percocet 10/325) 1 each PO Q4HR PRN PRN Reason: Pain Stop: 10/14/17 07:52 Pantoprazole Sodium (Protonix) 40 mg IVP DAILY [facility] Stop: 10/14/17 09:01 Last Admin: 04/14/17 08:16 Dose: 40 mg Pharmacy Profile Note (Patient Taking Own Medication) 0 each PO DAILY [facility] Stop: 10/14/17 09:01 Last Admin: 04/14/17 08:18 Dose: Not Given Prednisone (Prednisone) 40 mg PO DAILY [facility] Stop: 10/14/17 09:01 Last Admin: 04/14/17 08:15 Dose: 40 mg Rivaroxaban (Xarelto) 20 mg PO DAILY [facility] Stop: 10/14/17 09:01 Last Admin: 04/14/17 08:15 Dose: 20 mg Trimethoprim/Sulfamethoxazole (Bactrim Ds) 1 each PO BID [facility] Stop: 10/14/17 09:01 Last Admin: 04/14/17 08:16 Dose: 1 each Vitamin D (Vitamin D) 1,000 unit PO DAILY [facility] Stop: 10/14/17 09:01 Last Admin: 04/14/17 08:16 Dose: 1,000 unit - Imaging and Cardiology Echo: report reviewed Cardiac cath: report reviewed - EKG Interpretation EKG results cardiology: personally reviewed (A-Fib RVR HR 112), other (12 hr tele AVG HR 101, A-Fib, converted back to SR this AM.) Consult Discharge Plan - Plan Referrals: Igor Fuentes Jr, MD [Primary Care Provider] -
--- NOTE | 2017-04-14 13:01 | Electrocardiograph Report ---
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
--- NOTE | 2017-04-14 14:55 | Internal Med Progress Note ---
Date of Encounter: 04/14/17 Time of Encounter: 14:53 - Assessment and plan (1) Acute exacerbation of chronic obstructive airways disease Current Visit: No Status: Acute Assessment and plan: Acute on chronic hypoxic respiratory failure secondary to combination of acute COPD exacerbation likely secondary to a viral bronchitis and acute diastolic CHF exacerbation triggered by atrial fibrillation with rapid ventricular response Continue prednisone Oxygen therapy, DuoNeb's Lasix IV, strict I's and O's Echocardiogram pending, cardiology following the case (2) Acute and chronic respiratory failure with hypoxia Current Visit: No Status: Acute (3) Carotid stenosis Current Visit: No Status: Acute Assessment and plan: Continue aspirin Follow-up as an outpatient Qualifiers: Laterality: left Qualified Code(s): I65.22 - Occlusion and stenosis of left carotid artery (4) Acute exacerbation of congestive heart failure Current Visit: Yes Status: Acute Assessment and plan: Continue Lasix Qualifiers: Congestive heart failure type: diastolic Qualified Code(s): I50.33 - Acute on chronic diastolic (congestive) heart failure (5) Atrial fibrillation with RVR Current Visit: Yes Status: Acute Assessment and plan: Stable Continue Toprol Continue Xarelto (6) Cellulitis Current Visit: Yes Status: Acute Assessment and plan: Acute left lower extremity cellulitis Continue Bactrim day 2 Qualifiers: Site of cellulitis: extremity Site of cellulitis of extremity: lower extremity Laterality: left Qualified Code(s): L03.116 - Cellulitis of left lower limb (7) Dyslipidemia Current Visit: No Status: Acute - Subjective Interval history: Feels a still very short of breath, dry cough, no chest pain, no abdominal pain fevers or dysuria - Constitutional Vitals: Temp Pulse Resp BP Pulse Ox 97.8 F 81 18 150/95 93 04/14/17 07:00 04/14/17 07:00 04/14/17 08:04 04/14/17 07:26 04/14/17 08:04 General appearance: Present: A&O X 3, answers questions appropriately - Head Head exam: Present: atraumatic, normocephalic - Eye Eye exam: Present: PERRL, conjuntiva pink, sclera anicteric Pupils: Present: PERRL - Neck Neck exam general surgery: Present: supple, trachea midline. Absent: lymphadenopathy - Respiratory Respiratory exam: Present: decreased breath sounds (Very diminished breath sounds with minimal diffuse wheezing), CTAB. Absent: accessory muscle use, rales, rhonchi, wheezes - Cardiovascular Cardiovascular exam: Present: RRR, +S1, +S2. Absent: diastolic murmur, gallop, rubs, systolic murmur - GI/Abdominal GI/Abdominal exam: Present: normal bowel sounds, soft, no peritoneal signs. Absent: distended, tenderness - Extremities Exam Extremities exam: Present: pedal edema (Pedal edema is resolved, minimal erythema on the left lower extremity/asif), warm, radial pulses palpable and symmetrical. Absent: calf tenderness, cyanotic - Neurological Exam Neurological exam: Present: CN II-XII intact, oriented X3, no focal deficits. Absent: pronater drift, facial droop, speech deficit - Skin Skin exam: Present: dry, intact Internal Medicine: Result - Labs CBC & Chem 7: 04/14/17 01:17 04/14/17 01:17 Labs: Short CBC 04/14/17 Range/Units 01:17 WBC 7.3 (4.3-11.1) K/mcL Hgb 9.8 L (11.5-15.4) g/dL Hct 33.6 L (35.3-44.9) % Plt Count 271 (140-400) K/mcL Neutrophils # 6.6 (1.6-8.9) K/mcL BMP 04/14/17 01:17 Sodium 142 Potassium 3.6 Chloride 98 Carbon Dioxide 33 H BUN 20 Creatinine 1.01 Glucose 258 H Calcium 9.6 Cardiac Enzymes 04/13/17 04/14/17 Range/Units 18:19 01:17 Troponin I 0.02 0.01 (0-0.03) ng/mL Consult Discharge Plan - Plan Referrals: Igor Fuentes Jr, MD [Primary Care Provider] -
[2017-04-14] MEDS: *HR* LORazepam 1 MG TABLET PO SCH (21:19)
[2017-04-15 05:14] LABS: BUN/Creatinine Ratio 31 (6-26); Calcium 9.2 mg/dL (8.6-10.8); Carbon Dioxide 34 mEq/L (19-29); Chloride 99 mEq/L (98-109); Glucose 119 mg/dL (70-99); Osmolality,Calculated 300 (280-300); Potassium 3.8 mEq/L (3.5-4.5); Sodium 141 mEq/L (136-145); eGFR For African Americans > 60 (> 60); eGFR For Non-African Americans 53 (> 60)
[2017-04-15 05:15] LABS: Blood Urea Nitrogen 32 mg/dL (7-20)
[2017-04-15] MEDS: Cholecalciferol (D-3) 1,000 UNIT TABLET PO SCH (08:37)
[2017-04-15] MEDS: predniSONE 20 MG TABLET PO SCH (08:37)
[2017-04-15] MEDS: *HR* Rivaroxaban 10 MG TABLET PO SCH (08:37)
[2017-04-15] MEDS: Aspirin Enteric Coated 81 MG Tablet PO SCH (08:37)
[2017-04-15] MEDS: Furosemide 40 MG/4 ML VIAL IVP SCH (08:37)
[2017-04-15] MEDS: Metoprolol XL (24 HR) Succ 50 MG TAB.ER.24H PO SCH (08:38)
[2017-04-15] MEDS: Sulfamethoxazole/Trimeth DS 1 EACH TABLET PO SCH (08:38)
[2017-04-15] MEDS: Insulin LISPRO 300 UNITS/3 ML VIAL SQ SCH ×2 (08:40→12:30)
[2017-04-15] MEDS ORDERED: *HR* Metoprolol 5 MG/5 ML VIAL IVP ONE ×2 (09:50→09:51)
--- NOTE | 2017-04-15 09:54 | Discharge Summary ---
Date of Encounter: 04/15/17 Time of Encounter: 09:52 - Discharge Diagnosis (1) Acute exacerbation of chronic obstructive airways disease Priority: Primary Status: Acute Comments: Acute on chronic hypoxic respiratory failure secondary to combination of acute COPD exacerbation likely secondary to a viral bronchitis and acute diastolic CHF exacerbation triggered by atrial fibrillation with rapid ventricular response (2) Acute and chronic respiratory failure with hypoxia Priority: Primary Status: Acute (3) Carotid stenosis Priority: Secondary Status: Acute Comments: Continue aspirin Follow-up as an outpatient Qualifiers: Laterality: right Qualified Code(s): I65.21 - Occlusion and stenosis of right carotid artery (4) Acute exacerbation of congestive heart failure Priority: Primary Status: Acute Qualifiers: Congestive heart failure type: diastolic Qualified Code(s): I50.33 - Acute on chronic diastolic (congestive) heart failure (5) Atrial fibrillation with RVR Priority: Primary Status: Acute (6) Cellulitis Priority: Secondary Status: Acute Comments: Acute left lower extremity cellulitis Continue Bactrim Qualifiers: Site of cellulitis: extremity Site of cellulitis of extremity: lower extremity Laterality: left Qualified Code(s): L03.116 - Cellulitis of left lower limb (7) Dyslipidemia Priority: Secondary Status: Acute - Discharge Medications Prescriptions: Furosemide [Lasix] 40 mg PO DAILY #30 tablet Metoprolol XL (24 HR) Succ [Toprol Xl] 50 mg PO BID 30 Days tab.er.24h predniSONE [PredniSONE] 40 mg PO DAILY 20 Days tablet Sulfamethoxazole/Trimeth DS [Bactrim Ds] 1 each PO BID #10 tablet Home Medications: Albuterol Neb [Proventil Neb] 2.5 mg IH Q4HR PRN 09/27/15 [History] Albuterol Sulfate [Albuterol Inhaler] 1 - 2 puff IH Q6HR 09/27/15 [History] Aspirin [Adult Low Dose Aspirin EC] 81 mg PO DAILY 09/27/15 [History] Budesonide/Formoterol 160/4.5 [Symbicort 160/4.5] 2 puff IH BIDR 09/27/15 [ History] Cholecalciferol (Vitamin D3) [Vitamin D3] 5,000 unit PO DAILY 09/27/15 [History] Citalopram Hydrobromide [Celexa] 20 mg PO DAILY 09/27/15 [History] Esomeprazole Magnesium [Nexium] 40 mg PO DAILY 09/27/15 [History] LORazepam [Ativan] 2 mg PO HS 09/27/15 [History] Montelukast [Singulair] 10 mg PO DAILY 09/27/15 [History] amLODIPine [Norvasc] 5 mg PO DAILY 09/27/15 [History] Oxygen 4 l NS CONT 01/01/16 [History] Atorvastatin [Lipitor] 10 mg PO HS 04/13/17 [History] Ezetimibe [Zetia] 10 mg PO DAILY 04/13/17 [History] Metoprolol Succinate 100 mg PO DAILY 04/13/17 [History] Omeprazole [PriLOSEC] 20 mg PO DAILY 04/13/17 [History] Oxycodone HCl/Acetaminophen [Percocet 10-325 mg Tablet] 1 tab PO Q4H PRN [History] Rivaroxaban [Xarelto] 20 mg PO DAILY 04/13/17 [History] Furosemide [Lasix] 40 mg PO DAILY #30 tablet 04/15/17 [Rx] Metoprolol XL (24 HR) Succ [Toprol Xl] 50 mg PO BID 30 Days tab.er.24h [Rx] Sulfamethoxazole/Trimeth DS [Bactrim Ds] 1 each PO BID #10 tablet 04/15/17 [Rx] predniSONE [PredniSONE] 40 mg PO DAILY 20 Days tablet 04/15/17 [Rx] Allergies/Adverse Reactions: 3 Allergy/AdvReac Type Severity Reaction Status Date / Time codeine AdvReac Nausea Verified 01/01/16 07:19 Procedures/tests Complete & Pending: Procedures Performed prior 72 hours Category Date Time Status EV echocardiogram Routine Y 04/14/17 10:33 Completed Date of admission: 04/13/17 16:26 Primary care physician: Igor Fuentes Jr, MD Consults: 04/13/17 18:30 Consult to Cardiology [CONS] Routine Comment: Consulting Provider: Cardiology Yessy Reason for Consult: CHF exacerbation Time Notified: 18:31 Call Completed: No - Patient Status Disposition: Home, Self-Care Condition: Fair Overall status at discharge: patient is progressing back to baseline - Discharge Instructions Instructions: Sulfamethoxazole/Trimethoprim (By mouth), Metoprolol (By mouth), Furosemide (By mouth), Prednisone (By mouth), Myocardial Infarction (DC), Heart Failure (DC), Atrial Fibrillation (DC), Cellulitis (DC), Diabetes Mellitus Type 2 in Adults (DC), Chronic Obstructive Pulmonary Disease (DC), Chronic Hypertension (DC) Follow Up With: Екатерина Moctezuma CNP [Partnered Physician] - 04/21/17 2:00 pm Additional Instructions: Follow-up with a primary care physician within the next 7 days. Complete prednisone taper. Complete 5 more days of Bactrim. Start taking Lasix 40 mg daily. Decrease dose of Toprol in order to take 50 mg twice a day instead of 100 mg daily. Continue oxygen therapy - Diet and Activity Activity: increase activity as tolerated, wear oxygen at all times Diet: diabetic diet Hospital course: Ms. Castillo is a 76 year old female with PMH of oxygen dependent COPD oxygen dependent, diastolic CHF, nonobstructive CAD, diabetes not insulin-dependent, GERD, CRISTOPHER, paroxysmal atrial fibrillation on Xarelto, right carotid stenosis. According to the patient she was experiencing intermittent shortness of breath and a few months ago she was hospitalized at [facility] at that time she was diagnosed with atrial fibrillation was placed on Xarelto. She does have obstructive sleep apnea and is on CPAP at night however she has not been using it due to machine being broken. She was referred to cardiology and was seen by Dr. Reich. After her visit, she went to [facility], was walking into the store and became more short of breath with brief episode of left chest/shoulder pain which resolved on its own. She was brought to the ER for evaluation and upon presentation found to be in A. fib RVR tachypneic with conversational dyspnea and intermittent wheezing. Reports LE edema is actually improved. Chest x-ray showed vascular congestion and cardiomegaly, elevated BNP at 779. ECG 08/2015: Sinus rhythm, anteroseptal T-wave inversions. LHC 10/01/2015: Left main normal. LAD proximal 30% stenosis. Circumflex mid 40% stenosis. RCA proximal and mid 30% stenoses. TTE 05/08/2016: LVEF 60%. Normal LV, RV size and function. Mild diastolic dysfunction. No significant valvular dysfunction. No pulmonary hypertension. Carotid duplex 09/2016: Right ICA severe stenosis. Left ICA minimal plaque formation. She was started on Solu-Medrol, IV Lasix and was also given Bactrim due to left lower extremity cellulitis has cleared out. 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 Mentions that her dose of metoprolol was recently increased to 100 mg daily. We will divide the dose and 50 mg twice a day to maintain a more steady level. Feels less short of breath, was instructed to decrease her fluid intake and to take Lasix daily. Echo resulted--LVEF 60%, Moderate left ventricular diastolic dysfunction, Normal right ventricular structure and function, Mild to moderate mitral regurgitation, Mild tricuspid regurgitation, Mild pulmonary hypertension, There is a trivial pericardial effusion present without tamponade. Pt in SR. EF preserved. Cardiology signed off. - Time Spent with Patient Total time spent providing and/or coordinating discharge services: Greater than 30 minutes (40 min) - Constitutional Vitals: Temp Pulse Resp BP Pulse Ox 98.1 F 58 16 178/76 96 04/15/17 07:23 04/15/17 07:23 04/15/17 07:23 04/15/17 07:23 04/15/17 07:23 General appearance: Present: A&O X 3, answers questions appropriately - Head Head exam: Present: atraumatic, normocephalic - Eye Eye exam: Present: PERRL, conjuntiva pink, sclera anicteric Pupils: Present: PERRL - Neck Neck exam general surgery: Present: supple, trachea midline. Absent: lymphadenopathy - Respiratory Respiratory exam: Present: decreased breath sounds (Bibasilar crackles), CTAB, rhonchi. Absent: accessory muscle use, rales, wheezes - Cardiovascular Cardiovascular exam: Present: RRR, +S1, +S2. Absent: diastolic murmur, gallop, rubs, systolic murmur - GI/Abdominal GI/Abdominal exam: Present: normal bowel sounds, soft, no peritoneal signs. Absent: distended, tenderness - Extremities Exam Extremities exam: Present: warm, radial pulses palpable and symmetrical. Absent : calf tenderness, cyanotic, pedal edema - Neurological Exam Neurological exam: Present: CN II-XII intact, oriented X3, no focal deficits. Absent: pronater drift, facial droop, speech deficit - Skin Skin exam: Present: dry, intact Additional comments: Erythema and left lower extremity has resolved
[2017-04-15] MEDS: Budesonide/Formoterol 160/4.5 MDI IH SCH (10:59)
--- NOTE | 2017-04-15 11:08 | Event Note ---
Date of Encounter: 04/15/17 Time of Encounter: 11:07 - Cardiology Event Note Echo resulted--LVEF 60%, Moderate left ventricular diastolic dysfunction, Normal right ventricular structure and function, Mild to moderate mitral regurgitation, Mild tricuspid regurgitation, Mild pulmonary hypertension, There is a trivial pericardial effusion present without tamponade. Pt in SR. EF preserved. Cardiology signing off. Reconsult PRN. Follow-up as outpt--will coordinate.
[2017-04-15 11:46] VITALS: BP 114/85
--- NOTE | 2017-04-15 13:50 | Physician Discharge Referral ---
Home Health/Hosp Referral Info Transfer to: Home Health Provider in Charge Post Discharge: PCP - Diagnosis (1) Acute exacerbation of chronic obstructive airways disease Status: Acute (2) Acute and chronic respiratory failure with hypoxia Status: Acute (3) Carotid stenosis Status: Acute (4) Acute exacerbation of congestive heart failure Status: Acute (5) Atrial fibrillation with RVR Status: Acute (6) Cellulitis Status: Acute (7) Dyslipidemia Status: Acute - Respiratory Orders Smoking Cessation: Smoking cessation has been advised. For more information, call the [place] [employer] Quit Line at [phone]. - Diet/Nutrition Diet/Nutrition Orders: No Added Salt (YARELY) - Services Needed Following services are medically necessary services: Physical Therapy Other Treatments: Follow-up with a primary care physician within the next 7 days. Complete prednisone taper. Complete 5 more days of Bactrim. Start taking Lasix 40 mg daily. Decrease dose of Toprol in order to take 50 mg twice a day instead of 100 mg daily. Continue oxygen therapy - Transfer Medications Prescriptions: Furosemide [Lasix] 40 mg PO DAILY #30 tablet Metoprolol XL (24 HR) Succ [Toprol Xl] 50 mg PO BID 30 Days tab.er.24h predniSONE [PredniSONE] 40 mg PO DAILY 20 Days tablet Sulfamethoxazole/Trimeth DS [Bactrim Ds] 1 each PO BID #10 tablet Home Medications: Albuterol Neb [Proventil Neb] 2.5 mg IH Q4HR PRN 09/27/15 [History] Albuterol Sulfate [Albuterol Inhaler] 1 - 2 puff IH Q6HR 09/27/15 [History] Aspirin [Adult Low Dose Aspirin EC] 81 mg PO DAILY 09/27/15 [History] Budesonide/Formoterol 160/4.5 [Symbicort 160/4.5] 2 puff IH BIDR 09/27/15 [ History] Cholecalciferol (Vitamin D3) [Vitamin D3] 5,000 unit PO DAILY 09/27/15 [History] Citalopram Hydrobromide [Celexa] 20 mg PO DAILY 09/27/15 [History] Esomeprazole Magnesium [Nexium] 40 mg PO DAILY 09/27/15 [History] LORazepam [Ativan] 2 mg PO HS 09/27/15 [History] Montelukast [Singulair] 10 mg PO DAILY 09/27/15 [History] amLODIPine [Norvasc] 5 mg PO DAILY 09/27/15 [History] Oxygen 4 l NS CONT 01/01/16 [History] Atorvastatin [Lipitor] 10 mg PO HS 04/13/17 [History] Ezetimibe [Zetia] 10 mg PO DAILY 04/13/17 [History] Metoprolol Succinate 100 mg PO DAILY 04/13/17 [History] Omeprazole [PriLOSEC] 20 mg PO DAILY 04/13/17 [History] Oxycodone HCl/Acetaminophen [Percocet 10-325 mg Tablet] 1 tab PO Q4H PRN [History] Rivaroxaban [Xarelto] 20 mg PO DAILY 04/13/17 [History] Furosemide [Lasix] 40 mg PO DAILY #30 tablet 04/15/17 [Rx] Metoprolol XL (24 HR) Succ [Toprol Xl] 50 mg PO BID 30 Days tab.er.24h [Rx] Sulfamethoxazole/Trimeth DS [Bactrim Ds] 1 each PO BID #10 tablet 04/15/17 [Rx] predniSONE [PredniSONE] 40 mg PO DAILY 20 Days tablet 04/15/17 [Rx] Allergies/Adverse Reactions: 3 Allergy/AdvReac Type Severity Reaction Status Date / Time codeine AdvReac Nausea Verified 01/01/16 07:19 Certification: Further, I certify that my clinical findings support that this patient is homebound (i.e. absences from home require considerable and taxing effort and are for medical reasons or mandaen services or infrequently or short duration when for other reasons) because: Homebound Reason: Patient requires assistance of a person or device to safely leave home Attestation: My signature below is to certify that this patient is under my care and that I, or nurse practitioner, or a physician's patient care nursing assistant working with me, has a face-to -face encounter with this patient.
== END 2017-04-15 15:49 | disposition home or self-care (01) | DRG 291 ==
LOC: 2NENU 13:15 → EMEROO 13:15 → SUATTDRO 16:26 → 2NENU 17:04
PROVIDERS: ADMIT Internal Medicine; ATTEND Internal Medicine

== ENCOUNTER 2017-12-10 14:57 | Observation (INO) ==
[2017-12-10] MEDS ORDERED: Furosemide 40 MG/4 ML VIAL IVP ONE (15:21)
--- NOTE | 2017-12-10 15:23 | Emergency Department Note ---
Disposition Clinical Impression: Acute exacerbation of chronic obstructive airways disease Congestive heart failure Qualifiers: Heart failure type: unspecified Heart failure chronicity: acute Qualified Code( s): I50.9 - Heart failure, unspecified Disposition: Admitted As Inpatient Condition: Fair Referrals: Igor Fuentes Jr, MD [Primary Care Provider] - Forms: ED Satisfaction Letter Time of Disposition: 16:59 SOB HPI - General Chief Complaint: ED Shortness of Breath/Dyspnea Stated Complaint: DU Time Seen by Provider: 12/10/17 15:16 Source: patient Nursing Notes Reviewed: Yes Vital Signs Reviewed: Yes - History of Present Illness 77-year-old with a history of CHF and COPD comes in with increasing shortness of breath. She notes her lower extremities have had increased edema. She has audible wheezes when I walk in the room. Pt Subjective Complaint: shortness of breath, cough, "asthma attack" Onset (ago): Just MANAGER COMPLIANCE Severity: moderate Consistency/Duration: constant Improves with: nothing Worsens with: exertion Known history of: COPD, congestive heart failure Associated symptoms: Reports: denies other symptoms Treatment prior to arrival: none Cough Frequency: Intermittent - Related Data Home Medications Medication Instructions Recorded Confirmed Albuterol Neb [Proventil Neb] 2.5 mg IH Q8HR PRN 09/27/15 06/08/17 Albuterol Sulfate [Albuterol 1 - 2 puff IH Q6HR 09/27/15 06/08/17 Inhaler] Aspirin [Adult Low Dose Aspirin EC] 81 mg PO DAILY 09/27/15 06/08/17 Budesonide/Formoterol 160/4.5 2 puff IH BIDR 09/27/15 06/08/17 [Symbicort 160/4.5] Cholecalciferol (Vitamin D3) 5,000 unit PO DAILY 09/27/15 06/08/17 [Vitamin D3] Citalopram Hydrobromide [Celexa] 20 mg PO DAILY 09/27/15 06/08/17 Montelukast [Singulair] 10 mg PO DAILY 09/27/15 06/08/17 Oxygen 4 l NS CONT 01/01/16 06/08/17 Ezetimibe [Zetia] 10 mg PO DAILY 04/13/17 06/08/17 Omeprazole [PriLOSEC] 20 mg PO DAILY 04/13/17 06/08/17 Rivaroxaban [Xarelto] 20 mg PO DAILY 04/13/17 06/08/17 Atorvastatin Calcium [Lipitor] 20 mg PO DAILY 06/08/17 06/08/17 Furosemide [Lasix] 80 mg PO DAILY 06/08/17 06/08/17 Lisinopril [Zestril] 10 mg PO DAILY 06/08/17 06/08/17 dilTIAZem HCl [Diltiazem HCl] 90 mg PO TID 06/08/17 06/08/17 Previous Rx's Medication Instructions Recorded Metoprolol XL (24 HR) Succ [Toprol 50 mg PO BID 30 Days tab.er.24h 04/15/17 Xl] Oxycodone HCl/Acetaminophen 1 tab PO Q6H PRN #0 06/10/17 [Percocet 10-325 mg Tablet] Quetiapine Fumarate [Seroquel] 12.5 mg PO HS #15 tablet 06/10/17 predniSONE [PredniSONE] 60 mg PO DAILY 5 Days tablet 09/04/17 Allergies Allergy/AdvReac Type Severity Reaction Status Date / Time codeine AdvReac Nausea Verified 09/04/17 15:20 All systems ED: reviewed and negative except as stated. Constitutional: Denies: fever, chills, weakness, weight change Eyes: Denies: eye pain, eye discharge, vision change ENT ED: Denies: ear pain, throat pain, dental pain, hearing loss, epistaxis, congestion, dysphagia Cardiovascular: Denies: chest pain, palpitations, dyspnea on exertion, edema, syncope Respiratory: Reports: cough, dyspnea, wheezes. Denies: hemoptysis, stridor Gastrointestinal: Denies: abdominal pain, nausea, vomiting, diarrhea, constipation, hematemesis, melena, hematochezia Genitourinary: Denies: dysuria, frequency, hematuria, discharge Musculoskeletal: Denies: back pain, neck pain, arthralgia, myalgia Integumentary: Denies: rash, abrasion, lesions Neurological: Denies: headache, weakness, numbness, paresthesias, confusion, abnormal gait, vertigo Psychiatric: Denies: anxiety, depression, suicidal thoughts, homicidal thoughts , auditory hallucinations, visual hallucinations Endocrine: Denies: fatigue Hematological/Lymphatic: Denies: easy bleeding, easy bruising Allergic/Immunologic: Denies: facial swelling, urticaria Past Medical History - Past Medical History Medical history: Reports: arthritis, asthma, atrial fibrillation, COPD, coronary artery disease, diabetes, GERD, hyperlipidemia, hypertension, osteoporosis, other Surgical history: Reports: non-contributory, carotid endarterectomy, cholecystectomy, hysterectomy, other Psychiatric history: Reports: anxiety, depression - Social History Smoking Status: Former smoker Smokeless Tobacco Status: No Alcohol use: Reports: none Drug use: Reports: none Physical Exam - General Limitations: no limitations General appearance: alert, in no apparent distress - Head Head exam: atraumatic, normocephalic, normal inspection - Eye Eye exam: Present: normal appearance, PERRL, EOMI - ENT ENT exam: normal exam, normal oropharynx, mucous membranes moist - Neck Neck exam: Present: normal inspection, full ROM, trachea midline - Chest Chest inspection: Present: normal inspection, symmetric chest wall rise - Respiratory Respiratory exam: Present: wheezes, accessory muscle use, prolonged expiratory phase - Cardiovascular Cardiovascular exam: Present: regular rate, normal rhythm, normal heart sounds - Abdominal Exam Abdominal exam: Present: soft, Non-Tender. Absent: tenderness, distention, guarding, rebound, rigidity - Extremities Exam Extremities exam: Present: normal inspection, full ROM. Absent: tenderness, pedal edema - Expanded Lower Extremity Exam Neurovascular/Tendon exam: Absent: motor deficit, sensory deficit, tendon deficit Gait: not tested/not observed - Back Exam Back exam: Present: normal inspection, full ROM. Absent: tenderness - Neurological Exam Neurological exam: Present: alert, oriented X3. Absent: motor sensory deficit - Psychiatric Psychiatric exam: Present: normal affect, normal mood - Skin Skin exam: Present: warm, dry, intact, normal color Course - Reevaluation(s) Reevaluation #1: 77-year-old with the history COPD CHF comes in with increasing shortness of breath. She has significant exertional dyspnea. Time: 16:58 - Consultations Consultation #1: Discussed with Dr. Jeffery, gabriel. Time: 16:58 Vital Signs Temperature 97.8 F 12/10/17 14:58 Pulse Rate 96 12/10/17 14:58 Respiratory Rate 18 12/10/17 14:58 Blood Pressure 103/57 12/10/17 14:58 O2 Sat by Pulse Oximetry 97 12/10/17 14:58 Temperature 97.8 F 12/10/17 15:21 Pulse Rate 103 12/10/17 16:17 Respiratory Rate 22 12/10/17 16:17 Blood Pressure 133/62 12/10/17 16:17 O2 Sat by Pulse Oximetry 97 12/10/17 16:17 Oxygen Delivery Oxygen Delivery Nasal Cannula Shortness of Breath/Dyspnea - Lab Data Lab results reviewed: Yes I reviewed the patient's lab results. Result diagrams: 12/10/17 15:42 12/10/17 15:17 Lab Results 12/10/17 12/10/17 12/10/17 Range/Units 15:17 15:42 15:42 WBC 10.3 (4.3-11.1) K/mcL RBC 4.21 (3.82-4.97) M/mcL Hgb 10.4 L (11.5-15.4) g/dL Hct 36.7 (35.3-44.9) % MCV 87.2 (83.0-100.0) fL MCH 24.7 L (28.0-33.3) pg MCHC 28.3 L (31.6-35.5) g/dL RDW 16.4 H (11.5-14.5) % Plt Count 311 (140-400) K/mcL MPV 9.4 (9.4-12.4) fL Immature Gran % 0.4 (0-4) % Seg Neutrophils % 89.3 % Lymphocytes % 6.2 % Monocytes % 3.7 % Eosinophils % 0.1 % Basophils % 0.3 % Neutrophils # 9.2 H (1.6-8.9) K/mcL Lymphocytes # 0.6 (0.6-4.6) K/mcL Monocytes # 0.4 (0.0-1.3) K/mcL Eosinophils # 0.0 (0.0-0.6) K/mcL Basophils # 0.0 (0.0-0.2) K/mcL Sodium 143 (136-145) mEq/L Potassium 4.2 (3.5-5.1) mEq/L Chloride 103 (98-107) mEq/L Carbon Dioxide 34 H (23-29) mEq/L BUN 28 H (8-23) mg/dL Creatinine 1.28 H (0.60-1.20) mg/dL Est GFR ( Amer) 49 L (> 60) Est GFR (Non-Af Amer) 41 L (> 60) BUN/Creatinine Ratio 22 (6-26) Glucose 178 H (70-105) mg/dL Calculated Osmolality 306 H (280-300) Lactic Acid 1.8 (0.5-2.2) mmol/L Calcium 9.2 (8.6-10.3) mg/dL Troponin I 0.03 (< 0.04) ng/mL B-Natriuretic Peptide (Less than 100) pg/mL Urine Color (Yellow) Urine Clarity (Clear) Urine pH (5.0-8.0) pH Units Ur Specific Wellman (1.010-1.025) Urine Protein (Neg-Trace) mg/dL Urine Glucose (UA) (Normal) mg/dL Urine Ketones (Negative) mg/dL Urine Blood (Negative) Urine Nitrite (Negative) Urine Bilirubin (Negative) Urine Urobilinogen (Normal) mg/dL Ur Leukocyte Esterase (Negative) Urine Microscopic RBC (0-3) per hpf Urine Microscopic WBC (0-3) per hpf Ur Squamous Epith Cells (None-Few) per lpf Urine Bacteria (None-Few) per hpf Hyaline Casts (None-Few) per lpf Ur Culture Indicated? (NO) 12/10/17 12/10/17 Range/Units 15:42 16:15 WBC (4.3-11.1) K/mcL RBC (3.82-4.97) M/mcL Hgb (11.5-15.4) g/dL Hct (35.3-44.9) % MCV (83.0-100.0) fL MCH (28.0-33.3) pg MCHC (31.6-35.5) g/dL RDW (11.5-14.5) % Plt Count (140-400) K/mcL MPV (9.4-12.4) fL Immature Gran % (0-4) % Seg Neutrophils % % Lymphocytes % % Monocytes % % Eosinophils % % Basophils % % Neutrophils # (1.6-8.9) K/mcL Lymphocytes # (0.6-4.6) K/mcL Monocytes # (0.0-1.3) K/mcL Eosinophils # (0.0-0.6) K/mcL Basophils # (0.0-0.2) K/mcL Sodium (136-145) mEq/L Potassium (3.5-5.1) mEq/L Chloride (98-107) mEq/L Carbon Dioxide (23-29) mEq/L BUN (8-23) mg/dL Creatinine (0.60-1.20) mg/dL Est GFR ( Amer) (> 60) Est GFR (Non-Af Amer) (> 60) BUN/Creatinine Ratio (6-26) Glucose (70-105) mg/dL Calculated Osmolality (280-300) Lactic Acid (0.5-2.2) mmol/L Calcium (8.6-10.3) mg/dL Troponin I (< 0.04) ng/mL B-Natriuretic Peptide 669 H (Less than 100) pg/mL Urine Color Yellow (Yellow) Urine Clarity Clear (Clear) Urine pH 6.0 (5.0-8.0) pH Units Ur Specific Wellman 1.022 (1.010-1.025) Urine Protein Trace (Neg-Trace) mg/dL Urine Glucose (UA) Normal (Normal) mg/dL Urine Ketones Negative (Negative) mg/dL Urine Blood Negative (Negative) Urine Nitrite Negative (Negative) Urine Bilirubin Negative (Negative) Urine Urobilinogen Normal (Normal) mg/dL Ur Leukocyte Esterase Negative (Negative) Urine Microscopic RBC 0-3 (0-3) per hpf Urine Microscopic WBC 0-3 (0-3) per hpf Ur Squamous Epith Cells Many H (None-Few) per lpf Urine Bacteria None Seen (None-Few) per hpf Hyaline Casts None Seen (None-Few) per lpf Ur Culture Indicated? NO (NO) - Radiology Data Radiology results reviewed: Yes I reviewed the patient's radiology results. Chest X-Ray 12/10/17 15:17 IMPRESSION: Focal opacity in the medial aspects of the lung bases bilaterally likely related to a large hiatal hernia. No other acute cardiopulmonary findings. D/ / 12/10/2017 16:12:39 Angie Lieberman MD / bcarter Interpreting Provider: Angie Lieberman MD - EKG Data EKG attestation: Yes I reviewed and interpreted this EKG. Rate: Reports: normal Rhythm: Reports: A.Fib [place]/QRS: Reports: normal When compared to previous EKG there are: no significant changes (09/15/2017) Interpretation: Reports: no acute changes
[2017-12-10 15:55] LABS: Basophils % 0.3 %; Eosinophils % 0.1 %
[2017-12-10 15:56] LABS: Hematocrit 36.7 % (35.3-44.9); Hemoglobin 10.4 g/dL (11.5-15.4); Immature Granulocytes % 0.4 % (0-4); Lymphocytes # 0.6 K/mcL (0.6-4.6); Lymphocytes % 6.2 %; Mean Corpuscular HGB Conc 28.3 g/dL (31.6-35.5); Mean Corpuscular Hemoglobin 24.7 pg (28.0-33.3); Mean Corpuscular Volume 87.2 fL (83.0-100.0); Mean Platelet Volume 9.4 fL (9.4-12.4); Monocytes # 0.4 K/mcL (0.0-1.3); Monocytes % 3.7 %; Neutrophils # 9.2 K/mcL (1.6-8.9); Platelet Count 311 K/mcL (140-400); Red Blood Count 4.21 M/mcL (3.82-4.97); Red Cell Distribution Width 16.4 % (11.5-14.5); Segmented Neutrophils % 89.3 %
[2017-12-10] MEDS: Ipratropium/Albuterol Neb 3 ML IH ONE ×2 (16:04→16:20)
[2017-12-10 16:17] LABS: Troponin I 0.03 ng/mL (< 0.04)
[2017-12-10 16:18] LABS: Calcium 9.2 mg/dL (8.6-10.3); Potassium 4.2 mEq/L (3.5-5.1)
[2017-12-10 16:22] LABS: Bilirubin,Urine Negative (Negative); Blood,Urine Negative (Negative); Clarity,Urine Clear (Clear); Color,Urine Yellow (Yellow); Glucose,Urine (UA) Normal (Normal); Ketones,Urine Negative (Negative); Leukocyte Esterase,Urine Negative (Negative); Nitrite,Urine Negative (Negative); Protein,Urine Trace mg/dL (Neg-Trace); Specific Gravity,Urine 1.022 (1.010-1.025); Urobilinogen,Urine Normal (Normal)
[2017-12-10 16:24] LABS: Bacteria,Urine None Seen per hpf (None-Few); Hyaline Casts,Urine None Seen per lpf (None-Few); RBC,Urine 0-3 per hpf (0-3); Squamous Epithelial Cell,Urine Many per lpf (None-Few); WBC,Urine 0-3 per hpf (0-3)
[2017-12-10] MEDS ORDERED: methylPREDNISolone 125 MG/2 ML VIAL IVP ONE (16:57)
[2017-12-10] MEDS ORDERED: Naloxone 0.4 MG/ML INJ IVP PRN (18:16)
[2017-12-10] MEDS ORDERED: *HR* LORazepam 1 MG TABLET PO PRN (18:21)
[2017-12-10] MEDS ORDERED: NON-FORMULARY MEDICATION 1 EACH EACH (Oxygen [Oxygen] 4 L) NS SCH (18:30)
--- NOTE | 2017-12-10 18:32 | Internal Med History&Physical ---
<Emelina Figueroa - Last Filed: 12/10/17 18:59> Date of Encounter: 12/10/17 Time of Encounter: 18:43 Internal Medicine - H&P: HPI Chief complaint: Sob, and wheezing Admitted From: Home Plans for Post Hospital Care: Home History of present illness: Ms. Castillo is a 77 year old female with history of Afib, HTN, DM, elevated trop, CHF and carotid stenosis. The patient is here today due to increased sob over past few days. 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 He recommended that she come to the ED for her continued breathing issues. The patient wears 3L continuous at home. The patient indicated that she uses her med nebs at home and inhalers without much relief lately. She was given lasix 40 mg ivp in the ED for a BNP of 669, and notable leg edema 2+, that was visualized up to her knees. Her CXR showed focal opacities likely related to her large hiatal hernia. Creat is 1.28, her baseline is 0.9-1.0. She see's Dr. Jensen outpatient. She indicated that she had a fall a few days days ago related to her sob, she had a right elbow injury, which she states is better. She Will continue bronchodilators, iv furosemide and start iv solumedrol. The patient is currently in AFIb, rate 86, she was in the 110's on admission. Blood glucose is 178, she is not diabetic, however will check accu checks ac/hs while on steroids. Will get A1c in am. Past Med Surg Social Fam HX - Past Medical History Medical history: arthritis, asthma, atrial fibrillation, COPD, coronary artery disease, diabetes, GERD, hyperlipidemia, hypertension, osteoporosis, other Additional medical history: cyst on kidney Psychiatric history: anxiety, depression - Past Surgical History Surgical History: non-contributory, carotid endarterectomy, cholecystectomy, hysterectomy, other Additional surgical history: left carotid surgery - Social History Smoking Status: Former smoker Smokeless Tobacco Status: No Alcohol use: none Drug use: none - Family History Mother Family Member Ethnicity: Non- Living Status: Hx Family Cardiac Disorders: Yes Hx Family Respiratory Disorders: No Hx Family Cancer: No Hx Family GI Disorders: No Internal Medicine - H&P: Meds Albuterol Neb [Proventil Neb] 2.5 mg IH Q8HR PRN 09/27/15 [History] Albuterol Sulfate [Albuterol Inhaler] 1 - 2 puff IH Q6HR 09/27/15 [History] Aspirin [Adult Low Dose Aspirin EC] 81 mg PO DAILY 09/27/15 [History] Budesonide/Formoterol 160/4.5 [Symbicort 160/4.5] 2 puff IH BIDR 09/27/15 [ History] Citalopram Hydrobromide [Celexa] 20 mg PO DAILY 09/27/15 [History] Montelukast [Singulair] 10 mg PO DAILY 09/27/15 [History] Oxygen 4 l NS CONT 01/01/16 [History] Rivaroxaban [Xarelto] 20 mg PO DAILY 04/13/17 [History] Metoprolol XL (24 HR) Succ [Toprol Xl] 50 mg PO BID 30 Days tab.er.24h [Rx] Atorvastatin Calcium [Lipitor] 20 mg PO DAILY 06/08/17 [History] Furosemide [Lasix] 80 mg PO DAILY 06/08/17 [History] Esomeprazole Magnesium [Nexium] 40 mg PO DAILY 12/10/17 [History] Ferrous Sulfate [Iron] 325 mg PO BID 12/10/17 [History] LORazepam [Lorazepam] 2 mg PO HS PRN 12/10/17 [History] Potassium 99 mg PO DAILY 12/10/17 [History] 3 Allergy/AdvReac Type Severity Reaction Status Date / Time codeine AdvReac Nausea Verified 12/10/17 17:13 All Systems PM: A 10-system review of systems was performed and is negative for pertinent findings except as documented above in the HPI. - Constitutional Constitutional: fatigue, no chills, no fever(s), no night sweats - EENT Eyes: no change in vision, no discharge, no pain, no photophobia Ears: no ear discharge, no ear pain, no tinnitus Nose, mouth and throat: no dysphagia, no nasal discharge, no neck pain, no sore throat - Cardiovascular Cardiovascular ROS IM: dyspnea on exertion, no chest pain, no diaphoresis, no dyspnea, no lightheadedness, no palpitations, no syncope - Respiratory Respiratory: cough, chest congestion, excessive phlegm production (States the color of sputum is green), no dyspnea, no wheezing - Gastrointestinal Gastrointestinal: no abdominal pain, no diarrhea, no hematemesis, no hematochezia, no melena, no nausea, no vomiting - Genitourinary Genitourinary: no change in urinary stream, no dysuria, no flank pain, no hematuria - Musculoskeletal Musculoskeletal ROS IM: no numbness, no tingling - Integumentary Integumentary IM: no rash, no unusual bruising - Neurological Neurological ROS: no confusion, no convulsions, no focal weakness, no numbness, no tingling, no tremor(s) - Hematologic/Lymphatic Hematologic/Lymphatic: no easy bruising - Constitutional Vitals: Temp Pulse Resp BP Pulse Ox 98.3 F 86 20 107/69 95 12/10/17 17:55 12/10/17 17:55 12/10/17 17:55 12/10/17 17:55 12/10/17 17:15 General appearance: Present: A&O X 3 - Head Head exam: Present: atraumatic, normocephalic - Eye Eye exam: Present: PERRL, conjuntiva pink, sclera anicteric Pupils: Present: PERRL - Neck Neck exam general surgery: Present: supple, trachea midline. Absent: lymphadenopathy - Respiratory Respiratory exam: Present: decreased breath sounds, rhonchi, wheezes (Faint). Absent: accessory muscle use, rales - Cardiovascular Cardiovascular exam: Present: irregular rhythm (Afib), +S1, +S2. Absent: diastolic murmur, gallop, rubs, systolic murmur - GI/Abdominal GI/Abdominal exam: Present: normal bowel sounds, soft, no peritoneal signs. Absent: distended, tenderness - Extremities Exam Extremities exam: Present: pedal edema, warm, radial pulses palpable and symmetrical. Absent: calf tenderness, cyanotic - Neurological Exam Neurological exam: Present: alert, CN II-XII intact, oriented X3, no focal deficits. Absent: pronater drift, facial droop, speech deficit - Skin Skin exam: Present: dry, intact Internal Med - H&P Results - Labs CBC & Chem 7: 12/10/17 15:42 12/10/17 15:17 - Assessment and plan (1) Acute exacerbation of chronic obstructive airways disease Current Visit: Yes Status: Acute Assessment and plan: Continue home bronchodilators Home Oxygen 3L IV solumedrol (2) Acute exacerbation of congestive heart failure Current Visit: No Status: Acute Assessment and plan: Increase furosemide to 40 mg ivp bid Oxygen 3L Patient currently in Afib Qualifiers: Qualified Code(s): I50.33 - Acute on chronic diastolic (congestive) heart failure (3) Diabetes mellitus Current Visit: No Status: Acute Assessment and plan: HGB A1C in am, patient indicated that she was not diabetic Blood sugar on admit was 178. 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; Z79.4 - recreation leader (current) use of insulin (4) A-fib Current Visit: Yes Status: Acute Assessment and plan: See's cardiology outpatient Started on metoprolol for rate control outpatient will continue Cardiac monitoring Continue Xarelto Qualifiers: Atrial fibrillation type: chronic Qualified Code(s): I48.2 - Chronic atrial fibrillation (5) Benign essential hypertension Current Visit: Yes Status: Chronic Assessment and plan: bp is controlled Continue home bp medications-Metoprolol - Time Spent With Patient Total time spent is greater than 50% in coordination of care (as documented) at patient's floor/unit and/or counseling patient: <Alejandro Jeffery P - Last Filed: 12/11/17 07:18> Date of Encounter: 12/11/17 Internal Medicine - H&P: HPI History of present illness: Ms. Castillo is a 77 year old female All Systems PM: A 10-system review of systems was performed and is negative for pertinent findings except as documented above in the HPI. - Constitutional Vitals: Temp Pulse Resp BP Pulse Ox 97.9 F 96 18 131/75 96 12/11/17 06:54 12/11/17 06:54 12/11/17 06:54 12/11/17 06:54 12/11/17 06:54 Internal Med - H&P Results - Labs CBC & Chem 7: 06/15/18 05:49 12/11/17 05:49 Labs: Short CBC 12/11/17 Range/Units 05:49 WBC 8.2 (4.3-11.1) K/mcL Hgb 10.3 L (11.5-15.4) g/dL Hct 35.7 (35.3-44.9) % Plt Count 258 (140-400) K/mcL Neutrophils # 7.4 (1.6-8.9) K/mcL BMP 12/11/17 05:49 Sodium 143 Potassium 4.0 Chloride 104 Carbon Dioxide 31 H BUN 27 H Creatinine 1.12 Glucose 238 H Calcium 9.1 Cardiac Enzymes 12/11/17 Range/Units 05:49 Troponin I 0.03 (< 0.04) ng/mL Liver Function 12/11/17 Range/Units 05:49 Total Bilirubin 0.4 (0.3-1.0) mg/dL AST 10 L (13-39) Units/L ALT 15 (7-52) Units/L Alkaline Phosphatase 78 (34-104) Units/L Albumin 3.4 L (3.5-5.7) g/dL - Attending Attestation I saw and examined patient. I performed my own physical examination. I have discussed case with admitting SURVEY RESEARCH PROFESSOR. Briefly, patient is a pleasant lady who presented to ED with SOB. She was at outpatient pulmonology appointment and developed SOB. Appraiser Real Estate told her to come to ED. In the ED, she had clinical evidence of CHF exacerbation and COPD exacerbation. We will admit with IV solumedrol 40 mg IV Q8H, duonebs scheduled Q6H, and IV lasix 40 mg BID. Monitor strict I&Os and daily weights. Respiratory support. Supplemental O2 PRN; wean as tolerated. Recheck labwork in AM. - Time Spent With Patient Total time spent is greater than 50% in coordination of care (as documented) at patient's floor/unit and/or counseling patient:
[2017-12-10] MEDS ORDERED: Albuterol 2.5 MG/3 ML NEBULIZER IH PRN (18:48)
[2017-12-10] MEDS ORDERED: D5% in Water 1,000 ML IVC PRN (18:53)
[2017-12-10] MEDS ORDERED: Dextrose Gel 15 GM/37.5 ML TUBE PO PRN ×2 (18:53)
[2017-12-10] MEDS ORDERED: *HR* Dextrose 50 % in Water (Syg) 50 ML SYRINGE IVP PRN (18:53)
--- NOTE | 2017-12-10 19:17 | Event Note ---
Date of Encounter: 12/10/17 Time of Encounter: 19:13 I saw and examined patient. I performed my own physical examination. I have discussed case with admitting REGISTERED NURSE NURSERY. Briefly, patient is a pleasant lady who presented to ED with SOB. She was at outpatient pulmonology appointment and developed SOB. Dry Press Operator told her to come to ED. In the ED, she had clinical evidence of CHF exacerbation and COPD exacerbation. We will admit with IV solumedrol 40 mg IV Q8H, duonebs scheduled Q6H, and IV lasix 40 mg BID. Monitor strict I&Os and daily weights. Respiratory support. Supplemental O2 PRN; wean as tolerated. Recheck labwork in AM.
[2017-12-10] MEDS ORDERED: Albuterol 2.5 MG/3 ML NEBULIZER IH SCH (20:00)
[2017-12-10] MEDS ORDERED: Insulin LISPRO 300 UNITS/3 ML VIAL SQ SCH (21:00)
[2017-12-10] MEDS: Insulin LISPRO 300 UNITS/3 ML VIAL SQ SCH (21:55)
[2017-12-10] MEDS: Loratadine 10 MG TABLET PO SCH (21:55)
[2017-12-10] MEDS: (Potassium [Potassium] 99 MG) PO SCH (21:56)
[2017-12-10] MEDS: Furosemide 40 MG/4 ML VIAL IVP SCH (21:58)
[2017-12-10] MEDS: Metoprolol XL (24 HR) Succ 50 MG TAB.ER.24H PO SCH (21:59)
[2017-12-10] MEDS: Ipratropium/Albuterol Neb 3 ML IH SCH (22:20)
[2017-12-10] MEDS: Acetylcysteine 10% 2 ML INHSOL IH SCH (22:20)
[2017-12-10] MEDS: Budesonide/Formoterol 160/4.5 MDI IH SCH (22:20)
[2017-12-11] MEDS: MethylPREDNISolone 40 MG/ML VIAL IVP SCH ×2 (01:05→09:27)
[2017-12-11] MEDS: Acetylcysteine 10% 2 ML INHSOL IH SCH ×2 (03:57→10:41)
[2017-12-11] MEDS: Ipratropium/Albuterol Neb 3 ML IH SCH ×2 (03:57→10:41)
[2017-12-11 06:08] LABS: Basophils % 0.1 %
[2017-12-11 06:10] LABS: Hematocrit 35.7 % (35.3-44.9); Hemoglobin 10.3 g/dL (11.5-15.4); Immature Granulocytes % 1.1 % (0-4); Lymphocytes # 0.6 K/mcL (0.6-4.6); Lymphocytes % 7.5 %; Mean Corpuscular HGB Conc 28.9 g/dL (31.6-35.5); Mean Corpuscular Hemoglobin 25.4 pg (28.0-33.3); Mean Corpuscular Volume 87.9 fL (83.0-100.0); Mean Platelet Volume 9.8 fL (9.4-12.4); Monocytes # 0.1 K/mcL (0.0-1.3); Monocytes % 1.2 %; Neutrophils # 7.4 K/mcL (1.6-8.9); Platelet Count 258 K/mcL (140-400); Red Blood Count 4.06 M/mcL (3.82-4.97); Red Cell Distribution Width 15.9 % (11.5-14.5); Segmented Neutrophils % 90.1 %
[2017-12-11 06:24] LABS: Troponin I 0.03 ng/mL (< 0.04)
[2017-12-11 06:25] LABS: Albumin 3.4 g/dL (3.5-5.7); Albumin/Globulin Ratio 1.3 (1.1-2.2); Bilirubin,Total 0.4 mg/dL (0.3-1.0); Calcium 9.1 mg/dL (8.6-10.3); Chol/HDL Ratio 2.8 (0-4.9); Globulin 2.7 g/dL (2.4-3.5); Magnesium 2.2 mg/dL (1.6-2.6); Total Protein 6.1 g/dL (6.4-8.9)
[2017-12-11 06:34] LABS: Hypochromasia Present (Not Present); Platelet Estimate Normal (Normal)
[2017-12-11 06:56] VITALS: BP 131/75
[2017-12-11 07:37] LABS: Estimated Average Glucose 148 mg/dl; Hemoglobin A1C 6.8 %
[2017-12-11] MEDS ORDERED: *HR* Rivaroxaban 10 MG TABLET PO SCH (09:00)
[2017-12-11] MEDS ORDERED: Furosemide 40 MG/4 ML VIAL IVP SCH (09:00)
[2017-12-11] MEDS ORDERED: Aspirin Enteric Coated 81 MG Tablet PO SCH (09:00)
[2017-12-11] MEDS: Metoprolol XL (24 HR) Succ 50 MG TAB.ER.24H PO SCH (09:23)
[2017-12-11] MEDS: Insulin LISPRO 300 UNITS/3 ML VIAL SQ SCH (09:23)
[2017-12-11] MEDS: Loratadine 10 MG TABLET PO SCH (09:23)
[2017-12-11] MEDS: Furosemide 40 MG/4 ML VIAL IVP SCH (09:23)
[2017-12-11] MEDS: (Potassium [Potassium] 99 MG) PO SCH (09:40)
[2017-12-11] MEDS: Budesonide/Formoterol 160/4.5 MDI IH SCH (10:41)
--- NOTE | 2017-12-11 11:30 | Discharge Summary ---
Orders not resulted at time of discharge: Pending orders 12/12/17 04:00 Complete Blood Count [HEME] AM 0400 Comprehensive Metabolic Panel AM 0400 Date of Encounter: 12/11/17 Time of Encounter: 11:27 - Discharge Diagnosis (1) Acute exacerbation of chronic obstructive airways disease Priority: Primary Status: Acute (2) Acute on chronic diastolic (congestive) heart failure Priority: Primary Status: Acute (3) A-fib Priority: Primary Status: Acute Qualifiers: Atrial fibrillation type: chronic Qualified Code(s): I48.2 - Chronic atrial fibrillation (4) Hypertension Priority: Primary Status: Acute Qualifiers: Hypertension type: essential hypertension Qualified Code(s): I10 - Essential (primary) hypertension (5) Obesity (BMI 30-39.9) Priority: Primary Status: Acute Hospital course: Ms. Castillo is a 77 year old female with past medical history A. 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 She was found to be in acute COPD and diastolic heart failure exacerbation. He was placed in observation status for further workup and treatment. Her workup included a chest x-ray which showed bilateral opacities secondary to large hiatal hernia, otherwise nonacute. She was found to have worsening lower extremity edema and was diuresed with IV Lasix. Her shortness of breath improved with IV ATB and steroids. She returned to baseline on 12/11/17 and requested discharge home. She was discharged home on azithromycin, steroid bursts. Home Lasix resumed as patient reported dietary noncompliance with low salt diet which was likely the cause of CHF exacerbation. Adequately oxygenating on home dose O2 at time of discharge. Advised to return to ER if chest pain/SOB recurs. Discharge discussed with: patient (Seen and examined at bedside; patient is new to me. Information obtained from chart review and patient report. Sitting up in chair bedside. Says she feels much better would like to go home today. Has some shortness of breath but says she is back to baseline. Lower extremity edema improved as well.) - Time Spent with Patient Total time spent providing and/or coordinating discharge services: - Discharge Medications Prescriptions: Azithromycin [Azithromycin 6-Tab Pack] 250 mg PO PER PKG DI #6 tab PredniSONE [Deltasone] 40 mg PO DAILY #10 tablet Home Medications: Albuterol Neb [Proventil Neb] 2.5 mg IH Q8HR PRN 09/27/15 [History] Albuterol Sulfate [Albuterol Inhaler] 1 - 2 puff IH Q6HR 09/27/15 [History] Aspirin [Adult Low Dose Aspirin EC] 81 mg PO DAILY 09/27/15 [History] Budesonide/Formoterol 160/4.5 [Symbicort 160/4.5] 2 puff IH BIDR 09/27/15 [ History] Citalopram Hydrobromide [Celexa] 20 mg PO DAILY 09/27/15 [History] Montelukast [Singulair] 10 mg PO DAILY 09/27/15 [History] Oxygen 4 l NS CONT 01/01/16 [History] Rivaroxaban [Xarelto] 20 mg PO DAILY 04/13/17 [History] Metoprolol XL (24 HR) Succ [Toprol Xl] 50 mg PO BID 30 Days tab.er.24h [Rx] Atorvastatin Calcium [Lipitor] 20 mg PO DAILY 06/08/17 [History] Furosemide [Lasix] 80 mg PO DAILY 06/08/17 [History] Esomeprazole Magnesium [Nexium] 40 mg PO DAILY 12/10/17 [History] Ferrous Sulfate [Iron] 325 mg PO BID 12/10/17 [History] LORazepam [Lorazepam] 2 mg PO HS PRN 12/10/17 [History] Potassium 99 mg PO DAILY 12/10/17 [History] Azithromycin [Azithromycin 6-Tab Pack] 250 mg PO PER PKG DI #6 tab 12/11/17 [Rx] PredniSONE [Deltasone] 40 mg PO DAILY #10 tablet 12/11/17 [Rx] Allergies/Adverse Reactions: 3 Allergy/AdvReac Type Severity Reaction Status Date / Time codeine AdvReac Nausea Verified 12/10/17 17:13 Date of admission: 12/10/17 17:08 Primary care physician: Igor Fuentes Jr, MD Consults: 12/10/17 18:10 Consult to [employer] [CONS] Routine Reason for SW Consult: [facility] 12/10/17 18:51 Consult to Occupational Therapy [CONS] Routine Comment: Evaluate, develop and implement POC Reason for Consult: CHF, COPD. Please evaluate, treat, and determine rehab needs. Thanks. Does patient have active BEDREST order?: No Is patient medically & hemodynamically stable?: Yes Patient assessed for mobility or mobilized this visit?: No Consult to Physical Therapy [CONS] Routine Comment: Evaluate, develop and implement POC Reason for Consult: CHF, COPD. Please evaluate, treat, and determine rehab needs. Thanks. Does patient have active BEDREST order?: No Is patient medically & hemodynamically stable?: Yes Patient assessed for mobility or mobilized this visit?: No Consult to Respiratory Therapy [CONS] Stat Reason for Consult: COPD, CHF Call Completed: No 12/10/17 18:52 Consult to Nutrition [CONS] Routine Comment: [employer] Consulting Provider: NUTRITION Reason for Dietary Consult: Diet Education PO Supplementation Discharging clinician: Poppy Reed Anticipated date of discharge: 12/11/17 - Constitutional Vitals: Temp Pulse Resp BP Pulse Ox 97.9 F 96 17 131/75 97 12/11/17 06:54 12/11/17 06:54 12/11/17 10:43 12/11/17 06:54 12/11/17 10:43 General appearance: Present: A&O X 3, morbidly obese, no acute distress - Head Head exam: Present: atraumatic, normocephalic - Eye Eye exam: Present: PERRL, conjuntiva pink, sclera anicteric Pupils: Present: PERRL - Neck Neck exam general surgery: Present: supple, trachea midline. Absent: lymphadenopathy - Respiratory Respiratory exam: Present: decreased breath sounds. Absent: accessory muscle use, rales, rhonchi, wheezes - Cardiovascular Cardiovascular exam: Present: RRR, +S1, +S2. Absent: diastolic murmur, gallop, rubs, systolic murmur - GI/Abdominal GI/Abdominal exam: Present: normal bowel sounds, soft, no peritoneal signs. Absent: distended, tenderness - Extremities Exam Extremities exam: Present: pedal edema, warm, radial pulses palpable and symmetrical. Absent: calf tenderness, cyanotic - Neurological Exam Neurological exam: Present: CN II-XII intact, oriented X3, no focal deficits. Absent: pronater drift, facial droop, speech deficit - Skin Skin exam: Present: dry, intact - Patient Status Disposition: Home, Self-Care Condition: Good Functional capacity at discharge: uses cane/walker Overall status at discharge: patient is back to baseline - Discharge Instructions Instructions: Chronic Obstructive Pulmonary Disease (DC), Azithromycin (By mouth), Prednisone (By mouth), Low Sodium Diet (DC), Seasoning Without Salt (DC) , Heart Failure (DC) Follow Up With: Igor Fuentes Jr, MD [Primary Care Provider] - 12/16/17 1:00 pm () - Diet and Activity Activity: increase activity as tolerated Diet: diabetic diet, low fat, low cholesterol, low salt diet
--- NOTE | 2017-12-11 11:57 | Physician Discharge Referral ---
Home Health/Hosp Referral Info Transfer to: Home Health Attending Provider: Poppy Reed CNP Provider in Charge Post Discharge: PCP - Diagnosis (1) Acute exacerbation of chronic obstructive airways disease Status: Acute (2) Acute on chronic diastolic (congestive) heart failure Status: Acute (3) A-fib Status: Acute (4) Hypertension Status: Acute (5) Obesity (BMI 30-39.9) Status: Acute - Respiratory Orders Oxygen / L per min (3) Smoking Cessation: Smoking cessation has been advised. For more information, call the [place] Tobacco Quit Line at 0-737-BNBD-NOW. - Diet/Nutrition Diet/Nutrition Orders: No Added Salt (YARELY), Cardiac, No Concentrated Sweets - Activity Activity Orders: Ambulate, Walker - Services Needed Following services are medically necessary services: Nursing, Home Health Aide, Physical Therapy, Occupational Therapy - Transfer Medications Prescriptions: Azithromycin [Azithromycin 6-Tab Pack] 250 mg PO PER PKG DI #6 tab PredniSONE [Deltasone] 40 mg PO DAILY #10 tablet Home Medications: Albuterol Neb [Proventil Neb] 2.5 mg IH Q8HR PRN 09/27/15 [History] Albuterol Sulfate [Albuterol Inhaler] 1 - 2 puff IH Q6HR 09/27/15 [History] Aspirin [Adult Low Dose Aspirin EC] 81 mg PO DAILY 09/27/15 [History] Budesonide/Formoterol 160/4.5 [Symbicort 160/4.5] 2 puff IH BIDR 09/27/15 [ History] Citalopram Hydrobromide [Celexa] 20 mg PO DAILY 09/27/15 [History] Montelukast [Singulair] 10 mg PO DAILY 09/27/15 [History] Oxygen 4 l NS CONT 01/01/16 [History] Rivaroxaban [Xarelto] 20 mg PO DAILY 04/13/17 [History] Metoprolol XL (24 HR) Succ [Toprol Xl] 50 mg PO BID 30 Days tab.er.24h [Rx] Atorvastatin Calcium [Lipitor] 20 mg PO DAILY 06/08/17 [History] Furosemide [Lasix] 80 mg PO DAILY 06/08/17 [History] Esomeprazole Magnesium [Nexium] 40 mg PO DAILY 12/10/17 [History] Ferrous Sulfate [Iron] 325 mg PO BID 12/10/17 [History] LORazepam [Lorazepam] 2 mg PO HS PRN 12/10/17 [History] Potassium 99 mg PO DAILY 12/10/17 [History] Azithromycin [Azithromycin 6-Tab Pack] 250 mg PO PER PKG DI #6 tab 12/11/17 [Rx] PredniSONE [Deltasone] 40 mg PO DAILY #10 tablet 12/11/17 [Rx] Allergies/Adverse Reactions: 3 Allergy/AdvReac Type Severity Reaction Status Date / Time codeine AdvReac Nausea Verified 12/10/17 17:13 Certification: Further, I certify that my clinical findings support that this patient is homebound (i.e. absences from home require considerable and taxing effort and are for medical reasons or adventism services or infrequently or short duration when for other reasons) because: Homebound Reason: Patient requires assistance of a person or device to safely leave home Attestation: My signature below is to certify that this patient is under my care and that I, or nurse practitioner, or a physician's restaurant assistant working with me, has a face-to -face encounter with this patient.
--- NOTE | 2017-12-13 21:18 | Electrocardiograph Report ---
[place] [id number] Test Date: 2017-12-10 Pat Name: Nathalia Castillo Department: 103 Room: 3B64 Gender: F [employer]: MARILYN : 1940 Requested By: Kraig Saleh Order Number: [id number] Reading MD: Dane Reich Measurements Intervals [place] Rate: 91 P: SC: 0 QRS: 61 QRSD: 85 T: -6 QT: 363 QTc: 412 Interpretive Statements ATRIAL FIBRILLATION ST DEVIATION AND MODERATE T-WAVE ABNORMALITY, CONSIDER ANTERIOR ISCHEMIA Electronically Signed On 12-13-2017 21:17:10 EDT by Dane Reich
== END 2017-12-11 12:40 | disposition home or self-care (01) ==
LOC: EMEROO 14:57 → 3BNU 14:57
PROVIDERS: ADMIT Family Medicine; ATTEND Family Medicine

== ENCOUNTER 2018-04-15 12:37 | Inpatient (IN) ==
[2018-04-15] MEDS ORDERED: methylPREDNISolone 125 MG/2 ML VIAL IVP ONE (12:44)
[2018-04-15] MEDS ORDERED: Ipratropium/Albuterol Neb 3 ML IH ONE (12:44)
--- NOTE | 2018-04-15 12:49 | Emergency Department Note ---
Disposition Clinical Impression: COPD exacerbation, Elevated lactic acid level, Respiratory distress Anemia Qualifiers: Anemia type: other cause Other causes of anemia: other cause, not classified Qualified Code(s): D64.89 - Other specified anemias Disposition: Admitted As Inpatient Condition: Undetermined Time of Disposition: 14:30 SOB HPI - General Chief Complaint: ED Shortness of Breath/Dyspnea Stated Complaint: DU Time Seen by Provider: 04/15/18 12:40 Source: patient Mode of arrival: wheelchair Limitations: no limitations Nursing Notes Reviewed: Yes Vital Signs Reviewed: Yes - History of Present Illness 77-year-old female with history of CHF, COPD arrives to the emergency department with 2 days of dyspnea. The patient states that she is on 3 L nasal cannula [id number]. She states that she is exhibiting worsening difficulty in breathing. Upon arrival to the emergency department she was in moderate respiratory distress. The patient was tripoding using accessory muscles and a large amount of wheezing on auscultation. The patient was only able to speak in 2-3 word sentences. The patient was quickly placed on BiPAP. The patient denies any chest pain, fevers, chills. She does admit to lower extremity leg swelling which she says is not uncommon for her. The patient does have a history of DVT but she states it was a long time ago and she is currently taking Xarelto for this. The patient denies any other complaints at this time. She states that she usually gets COPD exacerbations time urinating since was going on today. - Related Data Home Medications Medication Instructions Recorded Confirmed Albuterol Neb [Proventil Neb] 2.5 mg IH Q8HR PRN 09/27/15 12/10/17 Albuterol Sulfate [Albuterol 1 - 2 puff IH Q6HR 09/27/15 12/10/17 Inhaler] Budesonide/Formoterol 160/4.5 2 puff IH BIDR 09/27/15 12/10/17 [Symbicort 160/4.5] Citalopram Hydrobromide [Celexa] 20 mg PO DAILY 09/27/15 04/15/18 Montelukast [Singulair] 10 mg PO DAILY 09/27/15 12/10/17 Oxygen 4 l NS CONT 01/01/16 12/10/17 Rivaroxaban [Xarelto] 10 mg PO DAILY 04/13/17 04/15/18 Atorvastatin Calcium [Lipitor] 20 mg PO DAILY 06/08/17 04/15/18 Furosemide [Lasix] 80 mg PO BID 06/08/17 04/15/18 Ferrous Sulfate [Iron] 325 mg PO BID 12/10/17 12/10/17 LORazepam [Lorazepam] 2 mg PO HS PRN 12/10/17 12/10/17 Potassium 99 mg PO DAILY 12/10/17 12/10/17 Aspirin [Adult Aspirin Regimen] 81 mg PO 04/15/18 Ezetimibe [Zetia] 10 mg PO DAILY 04/15/18 04/15/18 Lisinopril [Zestril] 5 mg PO DAILY 04/15/18 04/15/18 Metoprolol XL (24 HR) Succ [Toprol 50 mg PO DAILY 04/15/18 04/15/18 Xl] Omeprazole [PriLOSEC] 04/15/18 OxyCODONE/APAP 10/325 [Percocet 04/15/18 10/325 MG] PredniSONE [Deltasone] 10 mg PO DAILY 04/15/18 04/15/18 Previous Rx's Medication Instructions Recorded Azithromycin [Azithromycin 6-Tab 250 mg PO PER PKG DI #6 tab 12/11/17 Pack] Allergies Allergy/AdvReac Type Severity Reaction Status Date / Time codeine AdvReac Nausea Verified 12/10/17 17:13 All systems ED: reviewed and negative except as stated. Constitutional: Denies: fever, chills, weakness ENT ED: Reports: congestion Cardiovascular: Reports: dyspnea on exertion, edema. Denies: chest pain, syncope Respiratory: Reports: cough, dyspnea, sputum production Gastrointestinal: Denies: abdominal pain, nausea, vomiting Genitourinary: Denies: urgency, dysuria Musculoskeletal: Denies: back pain, neck pain Integumentary: Denies: rash Neurological: Denies: headache Past Medical History - Past Medical History Attestation: Yes The following information was validated with the patient. Source: patient, old records reviewed Medical history: Reports: arthritis, asthma, atrial fibrillation, COPD, coronary artery disease, diabetes, GERD, hyperlipidemia, hypertension, osteoporosis, other Surgical history: Reports: non-contributory, carotid endarterectomy, cholecystectomy, hysterectomy, other Psychiatric history: Reports: anxiety, depression - Social History Smoking Status: Former smoker Smokeless Tobacco Status: No Alcohol use: Reports: none Drug use: Reports: none Physical Exam - General Limitations: no limitations General appearance: alert, in distress (Moderate respiratory distress) - Head Head exam: atraumatic, normocephalic, normal inspection - Eye Eye exam: Present: normal appearance, PERRL, EOMI - ENT ENT exam: normal exam, normal oropharynx, mucous membranes moist - Neck Neck exam: Present: normal inspection, full ROM, trachea midline - Chest Chest inspection: Present: normal inspection, symmetric chest wall rise - Respiratory Respiratory exam: Present: respiratory distress, wheezes, accessory muscle use - Cardiovascular Cardiovascular exam: Present: tachycardia, irregular rhythm, normal heart sounds - Abdominal Exam Abdominal exam: Present: soft, Non-Tender. Absent: tenderness, distention, guarding, rebound, rigidity - Extremities Exam Extremities exam: Present: full ROM, tenderness, pedal edema - Neurological Exam Neurological exam: Present: alert, oriented X3 - Skin Skin exam: Present: warm, dry, intact, normal color Course Vital Signs Temperature 98.2 F 04/15/18 12:48 Pulse Rate 100 04/15/18 12:48 Respiratory Rate 24 04/15/18 12:48 Blood Pressure 82/66 04/15/18 12:48 O2 Sat by Pulse Oximetry 99 04/15/18 12:48 Temperature 98.2 F 04/15/18 12:48 Pulse Rate 100 04/15/18 12:48 Respiratory Rate 24 04/15/18 12:48 Blood Pressure 82/66 04/15/18 12:48 O2 Sat by Pulse Oximetry 100 04/15/18 13:29 Oxygen Delivery Oxygen Delivery Nasal Cannula Shortness of Breath/Dyspnea - [facility] Narrative Medical decision making narrative: Patient's workup in the emergency department given streets findings consistent with COPD exacerbation. The patient does have a lactic acid is elevated which is likely secondary to the patient's respiratory status. The patient is in atrial fibrillation with mild elevation of heart rate in the low 100s. The patient is on Xarelto. The patient will be admitted to the hospitalist at this time to monitor respiratory status. She was given a dose of azithromycin here in the emergency department as well as 1 L IV fluid. The patient was placed on BiPAP. She is now resting comfortably and no longer in any respiratory distress. Patient aware and agrees to plan. No further questions or concerns. Patient will be admitted to the hospital, accepted by Dr. Lagunas. - Lab Data Lab results reviewed: Yes I reviewed the patient's lab results. Result diagrams: 04/15/18 12:44 04/15/18 12:44 Lab Results 04/15/18 04/15/18 04/15/18 Range/Units 12:44 12:44 13:04 WBC 13.1 H (4.3-11.1) K/mcL RBC 3.80 L (3.82-4.97) M/mcL Hgb 8.8 L (11.5-15.4) g/dL Hct 32.0 L (35.3-44.9) % MCV 84.2 (83.0-100.0) fL MCH 23.2 L (28.0-33.3) pg MCHC 27.5 L (31.6-35.5) g/dL RDW 16.8 H (11.5-14.5) % Plt Count 385 (140-400) K/mcL MPV 9.9 (9.4-12.4) fL Immature Gran % 0.4 (0-4) % Seg Neutrophils % 78.1 % Lymphocytes % 14.5 % Monocytes % 5.8 % Eosinophils % 0.7 % Basophils % 0.5 % Neutrophils # 10.2 H (1.6-8.9) K/mcL Lymphocytes # 1.9 (0.6-4.6) K/mcL Monocytes # 0.8 (0.0-1.3) K/mcL Eosinophils # 0.1 (0.0-0.6) K/mcL Basophils # 0.1 (0.0-0.2) K/mcL Nucleated RBCs/100 WBC 0.2 H (0) /100 WBC Platelet Estimate Normal (Normal) Hypochromasia Present A (Not Present) D-Dimer 487 (0-500) ng/mLFEU VBG pH (7.32-7.42) pH Units VBG pCO2 (41-51) mmHg VBG pO2 (25-50) mmHg VBG HCO3 (21-27) mEq/L VBG Total CO2 mEq/L VBG O2 Saturation % VBG Base Excess mEq/L VBG Hematocrit (35.3-44.9) % VBG Lactic Acid (0.5-2.2) mmol/L Venous Sodium (135-145) mEq/L Sodium 142 (136-145) mEq/L Venous Potassium (3.5-5.5) mEq/L Potassium 3.7 (3.5-5.1) mEq/L Venous Chloride (98-107) mEq/L Chloride 102 (98-107) mEq/L Carbon Dioxide 30 H (23-29) mEq/L BUN 26 H (8-23) mg/dL Creatinine 1.15 (0.60-1.20) mg/dL Est GFR ( Amer) 56 L (> 60) Est GFR (Non-Af Amer) 46 L (> 60) BUN/Creatinine Ratio 23 (6-26) Glucose 177 H (70-105) mg/dL Whole Bld Glucose (65-95) mg/dl Calculated Osmolality 303 H (280-300) Lactic Acid (0.5-2.2) mmol/L Calcium 9.1 (8.6-10.3) mg/dL Venous Ioniz Calcium (1.15-1.35) mmol/L Troponin I < 0.03 (< 0.04) ng/mL 04/15/18 04/15/18 Range/Units 13:04 13:31 WBC (4.3-11.1) K/mcL RBC (3.82-4.97) M/mcL Hgb (11.5-15.4) g/dL Hct (35.3-44.9) % MCV (83.0-100.0) fL MCH (28.0-33.3) pg MCHC (31.6-35.5) g/dL RDW (11.5-14.5) % Plt Count (140-400) K/mcL MPV (9.4-12.4) fL Immature Gran % (0-4) % Seg Neutrophils % % Lymphocytes % % Monocytes % % Eosinophils % % Basophils % % Neutrophils # (1.6-8.9) K/mcL Lymphocytes # (0.6-4.6) K/mcL Monocytes # (0.0-1.3) K/mcL Eosinophils # (0.0-0.6) K/mcL Basophils # (0.0-0.2) K/mcL Nucleated RBCs/100 WBC (0) /100 WBC Platelet Estimate (Normal) Hypochromasia (Not Present) D-Dimer (0-500) ng/mLFEU VBG pH 7.38 (7.32-7.42) pH Units VBG pCO2 50 (41-51) mmHg VBG pO2 72 H (25-50) mmHg VBG HCO3 29 H (21-27) mEq/L VBG Total CO2 31 mEq/L VBG O2 Saturation 94 % VBG Base Excess 3 mEq/L VBG Hematocrit 32.0 L (35.3-44.9) % VBG Lactic Acid 2.9 H (0.5-2.2) mmol/L Venous Sodium 143 (135-145) mEq/L Sodium (136-145) mEq/L Venous Potassium 3.6 (3.5-5.5) mEq/L Potassium (3.5-5.1) mEq/L Venous Chloride 104 (98-107) mEq/L Chloride (98-107) mEq/L Carbon Dioxide (23-29) mEq/L BUN (8-23) mg/dL Creatinine (0.60-1.20) mg/dL Est GFR ( Amer) (> 60) Est GFR (Non-Af Amer) (> 60) BUN/Creatinine Ratio (6-26) Glucose (70-105) mg/dL Whole Bld Glucose 171 H (65-95) mg/dl Calculated Osmolality (280-300) Lactic Acid 2.3 H (0.5-2.2) mmol/L Calcium (8.6-10.3) mg/dL Venous Ioniz Calcium 1.03 L (1.15-1.35) mmol/L Troponin I (< 0.04) ng/mL - Radiology Data Radiology results reviewed: Yes I reviewed the patient's radiology results. Chest X-Ray 04/15/18 12:44 IMPRESSION: 1. Large hiatal hernia with adjacent compressive atelectasis. 2. No airspace opacity or evidence of pleural effusion. D/ / Krystian Garcia / Krystian Garcia Interpreting Provider: Krystian Garcia - EKG Data EKG attestation: Yes I reviewed and interpreted this EKG. EKG results narrative: Heart rate 103 beats for minute. Atrial fibrillation. No ST elevation mild ST depression noted in V2, V1. EKG otherwise similar in appearance to EKG from 12/10/2017. Attestation Statement - Attestation Attestation: I examined this patient and my medical decision-making was reviewed with the Resident Physician. I agree with the documented findings, disposition and treatment plan as described except to the extent set forth below. Findings consistent with dyspnea, possible COPD exacerbation. Patient had significant dyspnea on arrival was placed on BiPAP. She did have subsequent improving and respiratory status. She will be given steroids, antibiotics, bronchodilators, she will be admitted for further management workup. I spent greater than 35 minutes of critical care time resuscitating this acutely ill patient suffering from hypoxic respiratory failure. This was excluding billable procedures.
[2018-04-15] MEDS ORDERED: 0.9 % Sodium Chloride 500 ML IVC ONE (12:51)
[2018-04-15 13:19] LABS: Basophils % 0.5 %; Eosinophils % 0.7 %; Immature Granulocytes % 0.4 % (0-4); Monocytes % 5.8 %; Red Cell Distribution Width 16.8 % (11.5-14.5)
[2018-04-15 13:21] LABS: Basophils # 0.1 K/mcL (0.0-0.2); Eosinophils # 0.1 K/mcL (0.0-0.6); Hemoglobin 8.8 g/dL (11.5-15.4); Lymphocytes # 1.9 K/mcL (0.6-4.6); Lymphocytes % 14.5 %; Mean Corpuscular HGB Conc 27.5 g/dL (31.6-35.5); Mean Corpuscular Hemoglobin 23.2 pg (28.0-33.3); Mean Corpuscular Volume 84.2 fL (83.0-100.0); Mean Platelet Volume 9.9 fL (9.4-12.4); Monocytes # 0.8 K/mcL (0.0-1.3); Neutrophils # 10.2 K/mcL (1.6-8.9); Nucleated Red Blood Cells 0.2 /100 WBC (0); Platelet Count 385 K/mcL (140-400); Segmented Neutrophils % 78.1 %
[2018-04-15 13:35] LABS: VBG Base Excess 3 mEq/L; VBG Chloride 104 mEq/L (98-107); VBG Glucose 171 mg/dl (65-95); VBG HCO3 29 mEq/L (21-27); VBG Ionized Calcium 1.03 mmol/L (1.15-1.35); VBG Oxygen Saturation 94 %; VBG PCO2 50 mmHg (41-51); VBG PH 7.38 pH Units (7.32-7.42); VBG PO2 72 mmHg (25-50); VBG Total CO2 31 mEq/L
[2018-04-15 13:51] LABS: Hypochromasia Present (Not Present); Platelet Estimate Normal (Normal)
[2018-04-15] MEDS ORDERED: 0.9 % Sodium Chloride 1,000 ML IVC ONE (14:11)
[2018-04-15 14:16] LABS: BUN/Creatinine Ratio 23 (6-26); Blood Urea Nitrogen 26 mg/dL (8-23); Calcium 9.1 mg/dL (8.6-10.3); Carbon Dioxide 30 mEq/L (23-29); Chloride 102 mEq/L (98-107); Glucose 177 mg/dL (70-105); Osmolality,Calculated 303 (280-300); Potassium 3.7 mEq/L (3.5-5.1); Sodium 142 mEq/L (136-145); Troponin I < 0.03 ng/mL (< 0.04); eGFR For Non-African Americans 46 (> 60)
[2018-04-15] MEDS ORDERED: Azithromycin 500 MG in D5% in Water 250 ML IVPB ONE (14:28)
[2018-04-15] MEDS ORDERED: Naloxone 0.4 MG/ML INJ IVP PRN (14:59)
--- NOTE | 2018-04-15 15:16 | Internal Med History&Physical ---
Date of Encounter: 04/15/18 Time of Encounter: 14:30 Internal Medicine - H&P: HPI Chief complaint: Shortness of breath, severe malaise and fatigue Admitted From: Emergency Dept Plans for Post Hospital Care: Home History of present illness: Ms. Castillo is a 77 year old female patient with a history of COPD, diabetes, hypertension, atrial fibrillation, diastolic congestive heart failure and coronary artery disease who came to the ER with complaints of shortness of breath. Patient has chronic shortness of breath related to COPD and chronic respiratory failure on home oxygen. She is also been prescribed CPAP but has n ot been wearing it due to the mask being uncomfortable. She reports that she has just been feeling like she she is worn out. She has significant exertional dyspnea. When she came to the ER, she was barely able to speak 2 word sentences and was tripoding. She was placed on BiPAP and received breathing treatments with some improvement in her symptoms. She does have pedal edema which is chronic and she does take Lasix. She denies any orthopnea or PND. No chest pain. She does have cough and feels like she is choking and unable to cough up sputum. She does have occasional hemoptysis. Past Med Surg Social Fam HX - Past Medical History Attestation: Yes The following information was validated with the patient. Source: patient Medical history: arthritis, asthma, atrial fibrillation, COPD, coronary artery disease, diabetes, GERD, hyperlipidemia, hypertension, osteoporosis, other Additional medical history: cyst on kidney Psychiatric history: anxiety, depression - Past Surgical History Surgical History: non-contributory, carotid endarterectomy, cholecystectomy, hysterectomy, other Additional surgical history: left carotid surgery x 3 - Social History Smoking Status: Former smoker Smokeless Tobacco Status: No Alcohol use: none Drug use: none - Family History Mother Family Member Ethnicity: Non- Living Status: Hx Family Cardiac Disorders: Yes Hx Family Respiratory Disorders: No Hx Family Cancer: No Hx Family GI Disorders: No Internal Medicine - H&P: Meds Albuterol Neb [Proventil Neb] 2.5 mg IH Q8HR PRN 09/27/15 [History] Albuterol Sulfate [Albuterol Inhaler] 1 - 2 puff IH Q6HR 09/27/15 [History] Aspirin [Adult Low Dose Aspirin EC] 81 mg PO DAILY 09/27/15 [History] Budesonide/Formoterol 160/4.5 [Symbicort 160/4.5] 2 puff IH BIDR 09/27/15 [History] Citalopram Hydrobromide [Celexa] 20 mg PO DAILY 09/27/15 [History] Montelukast [Singulair] 10 mg PO DAILY 09/27/15 [History] Oxygen 4 l NS CONT 01/01/16 [History] Rivaroxaban [Xarelto] 20 mg PO DAILY 04/13/17 [History] Metoprolol XL (24 HR) Succ [Toprol Xl] 50 mg PO BID 30 Days tab.er.24h 04/15/17 [Rx] Atorvastatin Calcium [Lipitor] 20 mg PO DAILY 06/08/17 [History] Furosemide [Lasix] 80 mg PO DAILY 06/08/17 [History] Esomeprazole Magnesium [Nexium] 40 mg PO DAILY 12/10/17 [History] Ferrous Sulfate [Iron] 325 mg PO BID 12/10/17 [History] LORazepam [Lorazepam] 2 mg PO HS PRN 12/10/17 [History] Potassium 99 mg PO DAILY 12/10/17 [History] Azithromycin [Azithromycin 6-Tab Pack] 250 mg PO PER PKG DI #6 tab 12/11/17 [Rx] PredniSONE [Deltasone] 40 mg PO DAILY #10 tablet 12/11/17 [Rx] Allergy/AdvReac Type Severity Reaction Status Date / Time codeine AdvReac Nausea Verified 12/10/17 17:13 All Systems PM: A 10-system review of systems was performed and is negative for pertinent findings except as documented above in the HPI. - Constitutional Constitutional: fatigue, malaise, no chills, no fever(s), no night sweats - EENT Eyes: no change in vision, no discharge, no pain, no photophobia Ears: no ear discharge, no ear pain, no tinnitus Nose, mouth and throat: no dysphagia, no nasal discharge, no neck pain, no sore throat - Cardiovascular Cardiovascular ROS IM: no chest pain, no diaphoresis, no dyspnea, no lightheadedness, no palpitations, no syncope - Respiratory Respiratory: cough, dyspnea, dyspnea on exertion, no wheezing, no excessive phlegm production - Gastrointestinal Gastrointestinal: no abdominal pain, no diarrhea, no hematemesis, no hematochezia, no melena, no nausea, no vomiting - Genitourinary Genitourinary: no change in urinary stream, no dysuria, no flank pain, no hematuria - Musculoskeletal Musculoskeletal ROS IM: no numbness, no tingling - Integumentary Integumentary IM: no rash, no unusual bruising - Neurological Neurological ROS: no confusion, no convulsions, no focal weakness, no numbness, no tingling, no tremor(s) - Hematologic/Lymphatic Hematologic/Lymphatic: no easy bruising - Constitutional Vitals: Temp Pulse Resp BP Pulse Ox 98.2 F 100 24 82/66 100 04/15/18 12:48 04/15/18 12:48 04/15/18 12:48 04/15/18 12:48 04/15/18 13:29 General appearance: Present: cooperative, A&O X 3, severe distress, answers questions appropriately Exam: . - Eye Eye exam: Present: EOMI, PERRL, conjuntiva pink, sclera anicteric - ENT Additional comments: BiPAP mask in place - Neck Neck exam general surgery: Present: supple, trachea midline. Absent: lymphadenopathy - Respiratory Respiratory exam: Present: prolonged expiratory phase, respiratory distress, wheezes (Bilateral wheezing). Absent: accessory muscle use, rales, rhonchi - Cardiovascular Cardiovascular exam: Present: RRR, +S1, +S2. Absent: diastolic murmur, gallop, rubs, systolic murmur - GI/Abdominal GI/Abdominal exam: Present: normal bowel sounds, soft, no peritoneal signs. Absent: distended, tenderness - Extremities Exam Extremities exam: Present: pedal edema (Bilateral pedal edema. Stasis dermatitis noted on the left lower extremity), warm, radial pulses palpable and symmetrical. Absent: calf tenderness, cyanotic - Neurological Exam Neurological exam: Present: alert, CN II-XII intact, oriented X3, no focal deficits. Absent: facial droop, speech deficit - Skin Skin exam: Present: dry, intact Internal Med - H&P Results - Labs CBC & Chem 7: 04/15/18 12:44 04/15/18 12:44 Labs: Short CBC 04/15/18 Range/Units 12:44 WBC 13.1 H (4.3-11.1) K/mcL Hgb 8.8 L (11.5-15.4) g/dL Hct 32.0 L (35.3-44.9) % Plt Count 385 (140-400) K/mcL Neutrophils # 10.2 H (1.6-8.9) K/mcL BMP 04/15/18 12:44 Sodium 142 Potassium 3.7 Chloride 102 Carbon Dioxide 30 H BUN 26 H Creatinine 1.15 Glucose 177 H Calcium 9.1 Cardiac Enzymes 04/15/18 Range/Units 12:44 Troponin I < 0.03 (< 0.04) ng/mL - ABG Interpretation ABG results: 04/15/18 13:31 VBG pH 7.38 VBG pCO2 50 VBG pO2 72 H VBG HCO3 29 H VBG Total CO2 31 VBG O2 Saturation 94 VBG Base Excess 3 - Impressions ITS Impressions Chest X-Ray 04/15/18 12:44 IMPRESSION: 1. Large hiatal hernia with adjacent compressive atelectasis. 2. No airspace opacity or evidence of pleural effusion. D/ / Krystian Garcia / Krystian Garcia Interpreting Provider: Krystian Garcia - Assessment and plan (1) Acute and chronic respiratory failure with hypoxia Current Visit: Yes Status: Acute Assessment and plan: Acute respiratory failure with hypoxia. Continue O2 supplementation. Currently on BiPAP. Treat underlying COPD exacerbation. High risk for complications. (2) COPD exacerbation Current Visit: Yes Status: Acute Assessment and plan: Patient with acute COPD exacerbation. Her treatment with O2 supplementation. Use BiPAP as needed. Bronchodilators and systemic intravenous steroids. Patient does have increased cough. Chest x-ray does not show any signs of pneumonia. We will place her on azithromycin to treat any superimposed infection. Also check respiratory infection panel. (3) Anemia Current Visit: Yes Status: Chronic Assessment and plan: Hemoglobin 8.8. Patient does have chronic anemia. However her baseline appears to be closer to 10. She is on anticoagulation with Xarelto. We will check stool for occult blood. Monitor blood counts closely. Check iron, folic acid and B12 levels. Qualifiers: Anemia type: other cause Other causes of anemia: other cause, not classified Qualified Code(s): D64.89 - Other specified anemias (4) A-fib Current Visit: Yes Status: Acute Assessment and plan: Currently in sinus rhythm. Monitor heart rate. On anticoagulation with Xarelto. Check stool for occult blood. If positive will hold Xarelto while we work it up. Qualifiers: Atrial fibrillation type: paroxysmal Qualified Code(s): I48.0 - Paroxysmal atrial fibrillation (5) Acute on chronic diastolic (congestive) heart failure Current Visit: Yes Status: Acute Assessment and plan: Patient has history of diastolic congestive heart failure. She does describe increasing dyspnea on exertion and has lower extremity edema. Her 2-D echocardi ogram done in 2017 showed moderate diastolic dysfunction. We will repeat 2-D echo. Will treat with intravenous Lasix for now. EF of 60% (6) Diabetes mellitus Current Visit: Yes Status: Chronic Assessment and plan: Glucose 177 year. Will monitor sugars. Sliding scale insulin. I expect rise in blood sugars as she receives intravenous steroids. Will adjust insulin regimen accordingly. Qualifiers: Diabetes mellitus type: type 2 Diabetes mellitus truck terminal manager insulin use: with long-term use Diabetes mellitus complication status: without complication Qualified Code(s): E11.9 - Type 2 diabetes mellitus without complications; Z79.4 - truck terminal manager (current) use of insulin; Z79.4 - [employer] (current) use of insulin; Z79.4 - truck terminal manager (current) use of insulin; Z79.4 - truck terminal manager (current) use of insulin (7) Benign essential hypertension Current Visit: Yes Status: Chronic Assessment and plan: Patient was slightly hypotensive initially but has since improved will monitor blood pressure. Hold antihypertensive medications for systolic blood pressure less than 100 (8) CAD (coronary artery disease) Current Visit: Yes Status: Chronic Assessment and plan: Continue aspirin, Toprol, statin. Patient not having any chest pain at this time. Qualifiers: Coronary Disease-Associated Artery/Lesion type: [place] artery [place] vs. transplanted heart: [place] heart Associated angina: without angina Qualified Code(s): I25.10 - Atherosclerotic heart disease of [place] coronary artery without angina pectoris - Time Spent With Patient Total time spent is greater than 50% in coordination of care (as documented) at patient's floor/unit and/or counseling patient:
[2018-04-15] MEDS ORDERED: Dextrose Gel 15 GM/37.5 ML TUBE PO PRN ×2 (15:39)
[2018-04-15] MEDS ORDERED: D5% in Water 1,000 ML IVC PRN (15:39)
[2018-04-15] MEDS ORDERED: *HR* Dextrose 50 % in Water (Syg) 50 ML SYRINGE IVP PRN (15:39)
[2018-04-15] MEDS: Insulin LISPRO 300 UNITS/3 ML VIAL SQ SCH ×3 (17:32→22:12)
[2018-04-15] MEDS: Furosemide 40 MG/4 ML VIAL IVP SCH (18:30)
[2018-04-15] MEDS: Ipratropium/Albuterol Neb 3 ML IH SCH (22:49)
[2018-04-16] MEDS: methylPREDNISolone 125 MG/2 ML VIAL IVP SCH ×4 (00:24→23:36)
[2018-04-16] MEDS ORDERED: Acetaminophen 325 MG TABLET PO PRN (01:29)
[2018-04-16] MEDS: Ipratropium/Albuterol Neb 3 ML IH SCH ×4 (03:50→22:17)
[2018-04-16 04:36] LABS: Basophils % 0.1 %; Hematocrit 33.1 % (35.3-44.9); Hemoglobin 9.2 g/dL (11.5-15.4); Immature Granulocytes % 0.6 % (0-4); Lymphocytes # 0.7 K/mcL (0.6-4.6); Lymphocytes % 8.1 %; Mean Corpuscular HGB Conc 27.8 g/dL (31.6-35.5); Mean Corpuscular Hemoglobin 23.5 pg (28.0-33.3); Mean Corpuscular Volume 84.7 fL (83.0-100.0); Mean Platelet Volume 9.6 fL (9.4-12.4); Monocytes # 0.1 K/mcL (0.0-1.3); Monocytes % 0.7 %; Platelet Count 406 K/mcL (140-400); Red Blood Count 3.91 M/mcL (3.82-4.97); Red Cell Distribution Width 16.6 % (11.5-14.5); Segmented Neutrophils % 90.5 %
[2018-04-16 04:52] LABS: BUN/Creatinine Ratio 24 (6-26); Blood Urea Nitrogen 24 mg/dL (8-23); Calcium 9.7 mg/dL (8.6-10.3); Carbon Dioxide 33 mEq/L (23-29); Chloride 104 mEq/L (98-107); Chol/HDL Ratio 2.4 (0-4.9); Cholesterol 126 mg/dL (< 200); Glucose 200 mg/dL (70-105); HDL Cholesterol 52 mg/dL (40-59); LDL Cholesterol,Calculated 60 mg/dL (0-99); Osmolality,Calculated 304 (280-300); Potassium 4.4 mEq/L (3.5-5.1); Sodium 142 mEq/L (136-145); Triglycerides 70 mg/dL (< 150); eGFR For Non-African Americans 55 (> 60)
[2018-04-16 04:54] LABS: % Iron Saturation 3 % (15-50); Iron 16 mcg/dL (50-170); Transferrin 357 mg/dL (203-362)
[2018-04-16 05:11] LABS: Ferritin 19 ng/mL (10-120)
[2018-04-16 05:16] LABS: Folate 13.3 ng/mL (3.0-16.0)
[2018-04-16 06:15] LABS: Platelet Estimate Increased (Normal)
[2018-04-16 06:16] LABS: Anisocytosis 1+ (Not Present); Microcytosis Present (Not Present); Polychromasia 1+ (Not Present)
--- NOTE | 2018-04-16 06:53 | Electrocardiograph Report ---
[facility] Test Date: 2018-04-15 Pat Name: Nathalia Castillo Department: [id number] Room: 2NE32 Gender: F Thread Winder Automatic: : 1940 Requested By: Shree Tripp Order Number: [id number] Reading MD: Michele To Measurements Intervals [place] Rate: 103 P: MT: QRS: 74 QRSD: 129 T: -44 QT: 333 QTc: 436 Interpretive Statements Atrial fibrillation Nonspecific intraventricular conduction delay Electronically Signed On 04-16-2018 6:51:40 EDT by Michele To
[2018-04-16] MEDS: Insulin LISPRO 300 UNITS/3 ML VIAL SQ SCH ×4 (07:59→20:31)
[2018-04-16 08:00] LABS: Estimated Average Glucose 143 mg/dl; Hemoglobin A1C 6.6 %
[2018-04-16] MEDS: Furosemide 40 MG/4 ML VIAL IVP SCH ×2 (08:00→16:29)
[2018-04-16] MEDS ORDERED: *HR* Rivaroxaban 10 MG TABLET PO SCH (09:00)
[2018-04-16] MEDS: Metoprolol XL (24 HR) Succ 50 MG TAB.ER.24H PO SCH (09:04)
[2018-04-16] MEDS: Azithromycin 250 MG TABLET PO SCH (09:04)
[2018-04-16] MEDS: (Ezetimibe [Zetia] 10 MG) PO SCH (09:05)
--- NOTE | 2018-04-16 13:28 | Internal Med Progress Note ---
Hospitalist Progress Note - Encounter Date of Encounter: 04/16/18 Time of Encounter: 09:20 - Subjective Interval History: Patient is feeling somewhat better today. Continues to have significant shortness of breath. Also complains of fatigue and malaise. Denies any chest pain or palpitations. Still complains of phlegm in her throat that she is not able to cough up. - Exam Vitals: Temp Pulse Resp BP Pulse Ox 97.6 F 93 16 137/75 98 04/16/18 11:00 04/16/18 11:00 04/16/18 11:00 04/16/18 11:00 04/16/18 11:00 Exam: General: Patient is alert, no acute distress, oriented x 3 Respiratory: Good respiratory effort. Bilateral wheezing. Bronchial breath s ounds especially in the left lung Cardiovascular: Regular rate and rhythm. s1 and s2 normal No clicks, rubs, gallops, or murmurs. Bilateral pedal edema greater on the left with stasis dermatitis on the left Abdomen: Abdomen is soft, nontender. Bowel sounds are present Musculoskeletal: Spontaneously moving all extremities Skin: warm, dry, intact. Neuro: Alert oriented x 3 normal cranial nerves, no focal deficits - Assessment and Plan (1) Acute and chronic respiratory failure with hypoxia Current Visit: Yes Status: Acute Assessment and Plan: Continue O2 supplementation. Continue to treat underlying COPD. Encouraged patient to use BiPAP at home. Patient wants to try different masks that she would tolerate better. general lithographic worker has notified [employer] about this. They will follow up with the patient regarding this after discharge. (2) COPD exacerbation Current Visit: Yes Status: Acute Assessment and Plan: continue bronchodilators and intravenous steroids. Continue O2 supplementation. (3) Anemia Current Visit: Yes Status: Chronic Assessment and Plan: Hemoglobin 9.2 today. Patient has low iron levels. Will supplement (4) A-fib Current Visit: Yes Status: Chronic Assessment and Plan: Heart rate was elevated in the morning but has since improved. Continue Toprol- XL. Also on anticoagulation with Xarelto (5) Acute on chronic diastolic (congestive) heart failure Current Visit: Yes Status: Acute Assessment and Plan: Lower extremity edema has improved. We will transition patient to oral Lasix. (6) Diabetes mellitus Current Visit: Yes Status: Chronic Assessment and Plan: Blood sugars are elevated. Will continue to monitor and adjust insulin regimen accordingly. Continue diabetic diet. (7) Benign essential hypertension Current Visit: Yes Status: Chronic Assessment and Plan: Well-controlled. Continue current medications. (8) CAD (coronary artery disease) Current Visit: Yes Status: Chronic Assessment and Plan: Continue aspirin, statin. - Time Spent with Patient Total time spent is greater than 50% in coordination of care (as documented) at patient's floor/unit and/or counseling patient: Internal Medicine: Result - Labs CBC & Chem 7: 04/16/18 04:16 04/16/18 04:16 Labs: Short CBC 04/15/18 04/16/18 Range/Units 12:44 04:16 WBC 13.1 H 8.8 (4.3-11.1) K/mcL Hgb 8.8 L 9.2 L (11.5-15.4) g/dL Hct 32.0 L 33.1 L (35.3-44.9) % Plt Count 385 406 H (140-400) K/mcL Neutrophils # 10.2 H 8.0 (1.6-8.9) K/mcL BMP 04/15/18 04/16/18 12:44 04:16 Sodium 142 142 Potassium 3.7 4.4 Chloride 102 104 Carbon Dioxide 30 H 33 H BUN 26 H 24 H Creatinine 1.15 0.98 Glucose 177 H 200 H Calcium 9.1 9.7 Cardiac Enzymes 04/15/18 Range/Units 12:44 Troponin I < 0.03 (< 0.04) ng/mL - ABG Interpretation ABG results: PT/INR, D-dimer D-Dimer 487 ng/mLFEU (0-500) 04/15/18 13:04 - Impressions Impressions Chest X-Ray 04/15/18 12:44 IMPRESSION: 1. Large hiatal hernia with adjacent compressive atelectasis. 2. No airspace opacity or evidence of pleural effusion. D/ / Krystian Garcia / Krystian Garcia Interpreting Provider: Krystian Garcia Consult Discharge Plan - Plan Referrals: Igor Fuentes Jr, MD [Primary Care Provider] - (3) Anemia Qualifiers: Anemia type: iron deficiency Iron deficiency anemia type: unspecified iron deficiency Qualified Code(s): D50.9 - Iron deficiency anemia, unspecified (4) A-fib Qualifiers: Atrial fibrillation type: paroxysmal Qualified Code(s): I48.0 - Paroxysmal atrial fibrillation (6) Diabetes mellitus Qualifiers: Diabetes mellitus type: type 2 Diabetes mellitus terminal supervisor insulin use: with terminal supervisor use Diabetes mellitus complication status: without complication Qualified Code(s): E11.9 - Type 2 diabetes mellitus without complications; Z79.4 - prison (current) use of insulin; Z79.4 - intermodal truck driver (current) use of insulin; Z79.4 - prison (current) use of insulin; Z79.4 - intermodal truck driver (current) use of insulin (8) CAD (coronary artery disease) Qualifiers: Coronary Disease-Associated Artery/Lesion type: [place] artery [place] vs. transplanted heart: [place] heart Associated angina: without angina Qualified Code(s): I25.10 - Atherosclerotic heart disease of [place] coronary artery without angina pectoris
[2018-04-16] MEDS: Acetylcysteine 10% 2 ML INHSOL IH SCH ×2 (16:35→22:17)
[2018-04-16 18:25] LABS: Adenovirus Not Detected (Not Detect); Bordetella Pertussis Not Detected (Not Detect); Coronavirus 229E Not Detected (Not Detect); Coronavirus HKU1 Not Detected (Not Detect); Coronavirus NL63 Not Detected (Not Detect); Coronavirus OC43 Not Detected (Not Detect); Human Metapneumovirus Not Detected (Not Detect); Human Rhinovirus/Enterovirus Not Detected (Not Detect); Influenza A Subtype 2009 H1 Not Detected (Not Detect); Influenza A Untypeable Not Detected (Not Detect); Influenza B Not Detected (Not Detect); Parainfluenza Virus 1 Not Detected (Not Detect); Parainfluenza Virus 2 Not Detected (Not Detect); Parainfluenza Virus 3 Not Detected (Not Detect); Parainfluenza Virus 4 Not Detected (Not Detect); Respiratory Syncytial Virus Not Detected (Not Detect)
[2018-04-16 18:26] LABS: Chlamydophila pneumoniae Not Detected (Not Detect); Mycoplasma pneumoniae Not Detected (Not Detect)
[2018-04-17] MEDS: Ipratropium/Albuterol Neb 3 ML IH SCH ×2 (04:59→10:43)
[2018-04-17] MEDS: Acetylcysteine 10% 2 ML INHSOL IH SCH ×2 (05:02→10:47)
[2018-04-17 07:47] VITALS: BP 127/82
[2018-04-17] MEDS: Azithromycin 250 MG TABLET PO SCH (08:55)
[2018-04-17] MEDS: Metoprolol XL (24 HR) Succ 50 MG TAB.ER.24H PO SCH (08:56)
[2018-04-17] MEDS: Insulin LISPRO 300 UNITS/3 ML VIAL SQ SCH (08:57)
[2018-04-17] MEDS: Furosemide 40 MG/4 ML VIAL IVP SCH (08:57)
[2018-04-17] MEDS: (Ezetimibe [Zetia] 10 MG) PO SCH (08:58)
[2018-04-17 09:00] LABS: Thyroid Stimulating Hormone 0.572 mcIU/mL (0.340-5.600)
[2018-04-17] MEDS ORDERED: *HR* Rivaroxaban 15 MG TABLET PO SCH (09:00)
[2018-04-17] MEDS ORDERED: Aspirin Enteric Coated 81 MG Tablet PO SCH (09:00)
[2018-04-17] MEDS ORDERED: predniSONE 20 MG TABLET PO SCH (09:00)
--- NOTE | 2018-04-17 09:05 | Discharge Summary ---
- NOTES TO OUTPATIENT PROVIDER Notes to Outpatient Provider: Patient hospitalized for acute COPD exacerbation. Treated with steroids, bronchodilators. Her symptoms have slowly improved. She does have a history of what appears to be vocal cord paralysis from prior carotid surgery and reports symptoms of choking that wake her up. She will need to follow-up with ENT after discharge for further management. At this time she will be discharged on steroid taper and will complete a short course of azithromycin for possible underlying bronchitis. Orders not resulted at time of discharge: Pending orders 04/15/18 15:39 Occult Blood,Stool [BF] Routine Date of Encounter: 04/17/18 Time of Encounter: 09:03 - Discharge Diagnosis (1) Acute and chronic respiratory failure with hypoxia Priority: Primary Status: Acute (2) COPD exacerbation Priority: Secondary Status: Acute (3) Anemia Priority: Secondary Status: Chronic Qualifiers: Anemia type: iron deficiency Iron deficiency anemia type: unspecified iron deficiency Qualified Code(s): D50.9 - Iron deficiency anemia, unspecified (4) A-fib Priority: Secondary Status: Chronic Qualifiers: Atrial fibrillation type: paroxysmal Qualified Code(s): I48.0 - Paroxysmal atrial fibrillation (5) Acute on chronic diastolic (congestive) heart failure Priority: Secondary Status: Acute (6) Diabetes mellitus Priority: Secondary Status: Chronic Qualifiers: Diabetes mellitus type: type 2 Diabetes mellitus prison insulin use: with assistant terminal manager use Diabetes mellitus complication status: without complication Qualified Code(s): E11.9 - Type 2 diabetes mellitus without complications; Z79.4 - 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 transplanted heart: [place] heart Associated angina: without angina Qualified Code(s): I25.10 - Atherosclerotic heart disease of [place] coronary artery without angina pectoris (9) Vocal cord palsy Priority: Secondary Status: Suspected Hospital course: Ms. aCstillo is a 77 year old female patient with a history of COPD, coronary a rtery disease, hypertension, diastolic dysfunction who was hospitalized for acute COPD exacerbation along with mild CHF exacerbation.. Treated with steroids, bronchodilators. She also received intravenous Lasix. Her symptoms have slowly improved. She does have a history of what appears to be vocal cord paralysis from prior carotid surgery and reports symptoms of choking that wake her up. She will need to follow-up with ENT after discharge for further management. At this time she will be discharged on steroid taper and will complete a short course of azithromycin for possible underlying bronchitis. Patient reports having BiPAP but not wearing it as the mask is not comfortable for her. hot iron worker has discussed with her [employer] company and they will reevaluate the patient and tried to fit different masks for her. Discharge discussed with: patient, nurse - Time Spent with Patient Total time spent providing and/or coordinating discharge services: Greater than 30 minutes (32 min) - Discharge Medications Prescriptions: Azithromycin [Zithromax] 500 mg PO DAILY #6 tablet predniSONE [PredniSONE] 10 mg PO DAILY 12 Days tablet Home Medications: Albuterol Neb [Proventil Neb] 2.5 mg IH Q8HR PRN 09/27/15 [History] Albuterol Sulfate [Albuterol Inhaler] 2 puff IH QID PRN 09/27/15 [History] Citalopram Hydrobromide [Celexa] 20 mg PO DAILY 09/27/15 [History] Montelukast [Singulair] 10 mg PO DAILY 09/27/15 [History] Oxygen 3 l NS CONT 01/01/16 [History] Rivaroxaban [Xarelto] 10 mg PO DAILY 04/13/17 [History] Atorvastatin Calcium [Lipitor] 20 mg PO HS 06/08/17 [History] Furosemide [Lasix] 80 mg PO BID 06/08/17 [History] Potassium 99 mg PO DAILY 12/10/17 [History] Aspirin [Adult Aspirin Regimen] 81 mg PO DAILY 04/15/18 [History] Ezetimibe [Zetia] 10 mg PO DAILY 04/15/18 [History] Lisinopril [Zestril] 5 mg PO DAILY 04/15/18 [History] Metoprolol XL (24 HR) Succ [Toprol Xl] 50 mg PO DAILY 04/15/18 [History] Omeprazole [PriLOSEC] 20 mg PO DAILY 04/15/18 [History] OxyCODONE/APAP 10/325 [Percocet 10/325 MG] 1 - 2 tab PO Q4H PRN 04/15/18 [History] Budesonide/Formoterol 160/4.5 [Symbicort 160/4.5] 2 puff IH BIDR 04/16/18 [History] Gabapentin [Neuraptine] 1 - 2 pump TP TID 04/16/18 [History] Promethazine HCl/Codeine [Promethazine-Codeine Syrup] 5 - 10 ml PO Q4-6H PRN 04/16/18 [History] Azithromycin [Zithromax] 500 mg PO DAILY #6 tablet 04/17/18 [Rx] predniSONE [PredniSONE] 10 mg PO DAILY 12 Days tablet 04/17/18 [Rx] Allergies/Adverse Reactions: Allergy/AdvReac Type Severity Reaction Status Date / Time codeine AdvReac Nausea Verified 12/10/17 17:13 Date of admission: 04/15/18 15:44 Primary care physician: Igor Fuentes Jr, MD Consults: 04/15/18 22:19 Consult to Nurse Navigator [CONS] Routine Comment: Discharging clinician: Miriam Wang Anticipated date of discharge: 04/17/18 - Constitutional Vitals: Temp Pulse Resp BP Pulse Ox 97.6 F 99 18 127/82 98 04/17/18 07:42 04/17/18 07:42 04/17/18 07:42 04/17/18 07:42 04/17/18 07:42 General appearance: Present: cooperative, A&O X 3, severe distress, answers questions appropriately Exam: . - Respiratory Respiratory exam: Present: prolonged expiratory phase, wheezes. Absent: accessory muscle use, rales, rhonchi - Cardiovascular Cardiovascular exam: Present: RRR, +S1, +S2, tachycardia. Absent: diastolic murmur, gallop, rubs, systolic murmur - Neurological Exam Neurological exam: Present: alert, no focal deficits. Absent: facial droop, speech deficit - Patient Status Disposition: Home, Self-Care Condition: Good Functional capacity at discharge: uses cane/walker Overall status at discharge: patient is progressing back to baseline - Discharge Instructions Instructions: Heart Failure (DC), Acute Respiratory Distress Syndrome (DC), Diabetes Mellitus Type 2 in Adults (DC), Chronic Obstructive Pulmonary Disease (DC) Follow Up With: Igor Fuentes Jr, MD [Primary Care Provider] - (in 1-2 weeks) Additional Instructions: Please follow-up with your detention worker in 1-2 weeks. - Diet and Activity Activity: increase activity as tolerated, wear oxygen at all times Diet: diabetic diet, low fat, low cholesterol, low salt diet
--- NOTE | 2018-04-17 09:13 | Physician Discharge Referral ---
Home Health/Hosp Referral Info Transfer to: Home Health Provider in Charge Post Discharge: PCP - Diagnosis (1) Acute and chronic respiratory failure with hypoxia Priority: Primary Status: Acute (2) COPD exacerbation Priority: Secondary Status: Acute (3) Anemia Priority: Secondary Status: Chronic (4) A-fib Priority: Secondary Status: Chronic (5) Acute on chronic diastolic (congestive) heart failure Priority: Secondary Status: Acute (6) Diabetes mellitus Priority: Secondary Status: Chronic (7) Benign essential hypertension Priority: Secondary Status: Chronic (8) CAD (coronary artery disease) Priority: Secondary Status: Chronic (9) 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 For more information, call the [employer] Quit Line at [phone]. - Diet/Nutrition Diet/Nutrition Orders: Cardiac, No Concentrated Sweets (diabetic) - Activity Activity Orders: Walker - Services Needed Following services are medically necessary services: Nursing, Home Health Aide - Transfer Medications Prescriptions: Azithromycin [Zithromax] 500 mg PO DAILY #6 tablet predniSONE [PredniSONE] 10 mg PO DAILY 12 Days tablet Home Medications: Albuterol Neb [Proventil Neb] 2.5 mg IH Q8HR PRN 09/27/15 [History] Albuterol Sulfate [Albuterol Inhaler] 2 puff IH QID PRN 09/27/15 [History] Citalopram Hydrobromide [Celexa] 20 mg PO DAILY 09/27/15 [History] Montelukast [Singulair] 10 mg PO DAILY 09/27/15 [History] Oxygen 3 l NS CONT 01/01/16 [History] Rivaroxaban [Xarelto] 10 mg PO DAILY 04/13/17 [History] Atorvastatin Calcium [Lipitor] 20 mg PO HS 06/08/17 [History] Furosemide [Lasix] 80 mg PO BID 06/08/17 [History] Potassium 99 mg PO DAILY 12/10/17 [History] Aspirin [Adult Aspirin Regimen] 81 mg PO DAILY 04/15/18 [History] Ezetimibe [Zetia] 10 mg PO DAILY 04/15/18 [History] Lisinopril [Zestril] 5 mg PO DAILY 04/15/18 [History] Metoprolol XL (24 HR) Succ [Toprol Xl] 50 mg PO DAILY 04/15/18 [History] Omeprazole [PriLOSEC] 20 mg PO DAILY 04/15/18 [History] OxyCODONE/APAP 10/325 [Percocet 10/325 MG] 1 - 2 tab PO Q4H PRN 04/15/18 [History] Budesonide/Formoterol 160/4.5 [Symbicort 160/4.5] 2 puff IH BIDR 04/16/18 [History] Gabapentin [Neuraptine] 1 - 2 pump TP TID 04/16/18 [History] Promethazine HCl/Codeine [Promethazine-Codeine Syrup] 5 - 10 ml PO Q4-6H PRN 04/16/18 [History] Azithromycin [Zithromax] 500 mg PO DAILY #6 tablet 04/17/18 [Rx] predniSONE [PredniSONE] 10 mg PO DAILY 12 Days tablet 04/17/18 [Rx] Allergies/Adverse Reactions: Allergy/AdvReac Type Severity Reaction Status Date / Time codeine AdvReac Nausea Verified 12/10/17 17:13 Certification: Further, I certify that my clinical findings support that this patient is homebound (i.e. absences from home require considerable and taxing effort and are for medical reasons or alevism services or infrequently or short duration when for other reasons) because: Homebound Reason: Patient requires assistance of a person or device to safely leave home, Severity of cardiac or pulmonary status limits activity tolerance Attestation: My signature below is to certify that this patient is under my care and that I, or nurse practitioner, or a physician's diversional therapist's assistant working with me, has a [id number] encounter with this patient.
== END 2018-04-17 12:45 | disposition home or self-care (01) | DRG 291 ==
LOC: 2NENU 12:37 → EMEROOARM 12:37 → SUATTDRO 15:44 → 2NENU 15:46
PROVIDERS: ADMIT Internal Medicine; ATTEND Internal Medicine

== ENCOUNTER 2019-05-03 18:11 | Observation (INO) ==
[2019-05-03] MEDS ORDERED: Naloxone 0.4 MG/ML INJ IVP PRN (21:17)
[2019-05-03] MEDS ORDERED: Ondansetron 4 MG/2 ML VIAL IVP PRN (21:17)
[2019-05-03] MEDS ORDERED: 0.9 % Sodium Chloride 1,000 ML IVC SCH (21:30)
[2019-05-03 22:06] LABS: INR 2.2; Prothrombin Time 25.4 Seconds (9.4-12.1)
[2019-05-04] MEDS ORDERED: Albuterol 2.5 MG/3 ML NEBULIZER IH PRN (00:06)
[2019-05-04 01:35] LABS: Basophils % 0.4 %; Eosinophils % 0.4 %; Hematocrit 44.9 % (35.3-44.9); Hemoglobin 14.3 g/dL (11.5-15.4); Immature Granulocytes % 0.2 % (0-4); Lymphocytes # 1.1 K/mcL (0.6-4.6); Lymphocytes % 10.3 %; Mean Corpuscular HGB Conc 31.8 g/dL (31.6-35.5); Mean Corpuscular Volume 94.3 fL (83.0-100.0); Monocytes # 0.6 K/mcL (0.0-1.3); Monocytes % 6.1 %; Neutrophils # 8.7 K/mcL (1.6-8.9); Platelet Count 205 K/mcL (140-400); Red Blood Count 4.76 M/mcL (3.82-4.97); Red Cell Distribution Width 16.8 % (11.5-14.5); Segmented Neutrophils % 82.6 %; White Blood Count 10.5 K/mcL (4.3-11.1)
[2019-05-04 01:57] LABS: Alanine Aminotransferase 29 Units/L (7-52); Albumin 3.8 g/dL (3.5-5.7); Albumin/Globulin Ratio 1.2 (1.1-2.2); Alkaline Phosphatase 114 Units/L (34-104); Aspartate Amino Transferase 35 Units/L (13-39); BUN/Creatinine Ratio 25 (6-26); Bilirubin,Total 0.7 mg/dL (0.3-1.0); Blood Urea Nitrogen 29 mg/dL (8-23); Carbon Dioxide 36 mEq/L (23-29); Chloride 96 mEq/L (98-107); Globulin 3.2 g/dL (2.4-3.5); Glucose 129 mg/dL (70-105); Osmolality,Calculated 292 (280-300); Potassium 3.7 mEq/L (3.5-5.1); Sodium 137 mEq/L (136-145); Troponin I < 0.03 ng/mL (< 0.04); eGFR For African Americans 55 (> 60); eGFR For Non-African Americans 45 (> 60)
[2019-05-04 05:12] LABS: Chol/HDL Ratio 4.1 (0-4.9); Cholesterol 179 mg/dL (< 200); HDL Cholesterol 44 mg/dL (40-59); LDL Cholesterol,Calculated 102 mg/dL (0-99); Triglycerides 163 mg/dL (< 150)
[2019-05-04] MEDS ORDERED: Regadenoson 0.4 MG/5 ML SYRINGE IVP ONE (06:12)
[2019-05-04] MEDS: Budesonide/Formoterol 160/4.5 1 PUFF INH IH SCH ×2 (07:26→19:50)
[2019-05-04 07:50] LABS: Estimated Average Glucose 151 mg/dl
[2019-05-04] MEDS: Metoprolol XL (24 HR) Succ 50 MG TAB.ER.24H PO SCH (08:20)
[2019-05-04] MEDS ORDERED: NON-FORMULARY MEDICATION 1 EACH EACH (Ezetimibe [Zetia] 10 MG) PO SCH (09:00)
[2019-05-04] MEDS ORDERED: NON-FORMULARY MEDICATION 1 EACH EACH PO SCH (09:00)
[2019-05-04] MEDS ORDERED: POTASSIUM GLUCONATE 99 MG PO SCH (09:00)
[2019-05-04] MEDS ORDERED: *HR* Rivaroxaban 10 MG TABLET PO SCH (09:00)
[2019-05-04] MEDS: Magnesium Oxide 400 MG TABLET PO SCH (10:06)
[2019-05-04] MEDS: Aspirin Enteric Coated 81 MG Tablet PO SCH (10:07)
[2019-05-04] MEDS: predniSONE 10 MG TABLET PO SCH (10:07)
[2019-05-04] MEDS ORDERED: *HR* Rivaroxaban 15 MG TABLET PO SCH (17:00)
[2019-05-05] MEDS ORDERED: Regadenoson 0.4 MG/5 ML SYRINGE IVP ONE (06:07)
[2019-05-05] MEDS: Aspirin Enteric Coated 81 MG Tablet PO SCH (09:42)
[2019-05-05] MEDS: predniSONE 10 MG TABLET PO SCH (09:43)
[2019-05-05] MEDS: Magnesium Oxide 400 MG TABLET PO SCH (09:43)
[2019-05-05] MEDS: Metoprolol XL (24 HR) Succ 50 MG TAB.ER.24H PO SCH (09:44)
[2019-05-05] MEDS: Budesonide/Formoterol 160/4.5 1 PUFF INH IH SCH (11:28)
[2019-05-05] MEDS ORDERED: FLU Vac QV 19-20 (6Month+)/PF 0.5 ML SYRINGE IM ONE (16:57)
[2019-05-05 17:08] VITALS: BP 115/58
== END 2019-05-05 18:00 | disposition home or self-care (01) ==
LOC: 3BNU
PROVIDERS: ADMIT Internal Medicine; ATTEND Internal Medicine

== ENCOUNTER 2019-06-21 13:51 | Observation (INO) ==
[2019-06-21] MEDS ORDERED: predniSONE 20 MG TABLET PO ONE (14:17)
[2019-06-21] MEDS ORDERED: Ipratropium/Albuterol Neb 3 ML IH ONE (14:17)
[2019-06-21 14:34] LABS: Basophils % 0.3 %; Eosinophils # 0.1 K/mcL (0.0-0.6); Eosinophils % 0.5 %; Hematocrit 42.2 % (35.3-44.9); Hemoglobin 13.6 g/dL (11.5-15.4); Immature Granulocytes % 0.4 % (0-4); Lymphocytes # 0.7 K/mcL (0.6-4.6); Lymphocytes % 5.4 %; Mean Corpuscular HGB Conc 32.2 g/dL (31.6-35.5); Mean Corpuscular Hemoglobin 31.6 pg (28.0-33.3); Mean Corpuscular Volume 97.9 fL (83.0-100.0); Mean Platelet Volume 10.4 fL (9.4-12.4); Monocytes % 8.1 %; Platelet Count 229 K/mcL (140-400); Red Blood Count 4.31 M/mcL (3.82-4.97); Red Cell Distribution Width 14.9 % (11.5-14.5); Segmented Neutrophils % 85.3 %; White Blood Count 12.9 K/mcL (4.3-11.1)
[2019-06-21 15:02] LABS: Calcium 9.5 mg/dL (8.6-10.3); Potassium 3.8 mEq/L (3.5-5.1); Troponin I 0.04 ng/mL (< 0.04)
[2019-06-21] MEDS ORDERED: CefTRIAXone 1,000 MG VIAL IM ONE (15:34)
[2019-06-21] MEDS ORDERED: Azithromycin 250 MG TABLET PO ONE (15:34)
[2019-06-21] MEDS ORDERED: Azithromycin 500 MG in 0.9 % Sodium Chloride 250 ML IVPB ONE (15:51)
[2019-06-21] MEDS ORDERED: cefTRIAXone 1,000 MG in Water for inj. (sterile) 10 ML IVP ONE (15:51)
[2019-06-21] MEDS ORDERED: Naloxone 0.4 MG/ML INJ IVP PRN (17:33)
[2019-06-21] MEDS ORDERED: Ondansetron ODT 4 MG TAB.RAPDIS SL PRN (17:33)
[2019-06-21] MEDS ORDERED: Albuterol 2.5 MG/3 ML NEBULIZER IH PRN (17:42)
[2019-06-21] MEDS ORDERED: *HR* Metoprolol 5 MG/5 ML VIAL IVP ONE (17:43)
[2019-06-21] MEDS ORDERED: Nitroglycerin 0.4 MG TAB.SUBL SL PRN (17:45)
[2019-06-21] MEDS ORDERED: metOLazone 2.5 MG TABLET PO PRN (17:45)
[2019-06-21] MEDS ORDERED: Cyanocobalamin (B-12) 1,000 MCG/ML VIAL IM SCH (17:45)
[2019-06-21] MEDS ORDERED: D5% in Water 1,000 ML IVC PRN (18:08)
[2019-06-21] MEDS ORDERED: Dextrose Gel 15 GM/37.5 ML TUBE PO PRN ×2 (18:08)
[2019-06-21] MEDS ORDERED: *HR* Dextrose 50 % in Water (Syg) 50 ML SYRINGE IVP PRN (18:08)
[2019-06-21 18:31] LABS: Bilirubin,Urine Negative (Negative); Blood,Urine Negative (Negative); Clarity,Urine Clear (Clear); Color,Urine Yellow (Yellow); Glucose,Urine (UA) Normal (Normal); Ketones,Urine Negative (Negative); Leukocyte Esterase,Urine Negative (Negative); Nitrite,Urine Negative (Negative); Protein,Urine Negative (Neg-Trace); Specific Gravity,Urine 1.013 (1.010-1.025); Urobilinogen,Urine Normal (Normal)
[2019-06-21] MEDS: Ipratropium Neb 0.5 MG NEBULIZER IH SCH ×2 (20:35→23:21)
[2019-06-21] MEDS: Budesonide/Formoterol 160/4.5 1 PUFF INH IH SCH (20:57)
[2019-06-21] MEDS: Insulin LISPRO 300 UNITS/3 ML VIAL SQ SCH (21:13)
[2019-06-22 02:25] LABS: Hematocrit 40.4 % (35.3-44.9); Hemoglobin 13.1 g/dL (11.5-15.4); Mean Corpuscular HGB Conc 32.4 g/dL (31.6-35.5); Mean Corpuscular Hemoglobin 31.3 pg (28.0-33.3); Mean Corpuscular Volume 96.7 fL (83.0-100.0); Mean Platelet Volume 10.3 fL (9.4-12.4); Platelet Count 197 K/mcL (140-400); Red Blood Count 4.18 M/mcL (3.82-4.97); Red Cell Distribution Width 14.6 % (11.5-14.5); White Blood Count 9.7 K/mcL (4.3-11.1)
[2019-06-22 02:41] LABS: Calcium 9.1 mg/dL (8.6-10.3); Potassium 3.7 mEq/L (3.5-5.1)
[2019-06-22] MEDS: Ipratropium Neb 0.5 MG NEBULIZER IH SCH ×5 (03:55→20:05)
[2019-06-22] MEDS ORDERED: Chloraseptic Spray 177 ML BOTTLE MM PRN (05:22)
[2019-06-22] MEDS: Budesonide/Formoterol 160/4.5 1 PUFF INH IH SCH ×2 (07:18→20:05)
[2019-06-22] MEDS: Metoprolol XL (24 HR) Succ 50 MG TAB.ER.24H PO SCH (07:25)
[2019-06-22] MEDS: Aspirin Enteric Coated 81 MG Tablet PO SCH (07:25)
[2019-06-22] MEDS: Loratadine 10 MG TABLET PO SCH (07:25)
[2019-06-22] MEDS: *HR* Rivaroxaban 10 MG TABLET PO SCH (07:25)
[2019-06-22] MEDS: cefTRIAXone 1,000 MG in Water for inj. (sterile) 10 ML IVP SCH (07:26)
[2019-06-22] MEDS: Insulin LISPRO 300 UNITS/3 ML VIAL SQ SCH ×4 (07:26→21:36)
[2019-06-22] MEDS ORDERED: predniSONE 20 MG TABLET PO SCH (09:00)
[2019-06-22] MEDS ORDERED: Furosemide 40 MG TABLET PO SCH (09:00)
[2019-06-22] MEDS ORDERED: Azithromycin 250 MG TABLET PO SCH (09:00)
[2019-06-22] MEDS: MethylPREDNISolone 40 MG/ML VIAL IVP SCH (16:33)
[2019-06-22] MEDS: Insulin DETEMIR 100 UNIT/ML X5UNITS SQ SCH (21:35)
[2019-06-23] MEDS: Ipratropium Neb 0.5 MG NEBULIZER IH SCH ×7 (00:22→23:47)
[2019-06-23] MEDS: MethylPREDNISolone 40 MG/ML VIAL IVP SCH ×2 (05:28→16:21)
[2019-06-23] MEDS: Budesonide/Formoterol 160/4.5 1 PUFF INH IH SCH ×2 (07:11→19:30)
[2019-06-23 07:20] LABS: Basophils % 0.2 %; Hematocrit 41.9 % (35.3-44.9); Hemoglobin 13.4 g/dL (11.5-15.4); Immature Granulocytes % 0.6 % (0-4); Lymphocytes # 0.9 K/mcL (0.6-4.6); Lymphocytes % 6.8 %; Mean Corpuscular Hemoglobin 30.8 pg (28.0-33.3); Mean Corpuscular Volume 96.3 fL (83.0-100.0); Mean Platelet Volume 11.3 fL (9.4-12.4); Monocytes # 0.8 K/mcL (0.0-1.3); Monocytes % 6.4 %; Neutrophils # 11.3 K/mcL (1.6-8.9); Platelet Count 256 K/mcL (140-400); Red Blood Count 4.35 M/mcL (3.82-4.97); Red Cell Distribution Width 14.6 % (11.5-14.5); White Blood Count 13.1 K/mcL (4.3-11.1)
[2019-06-23 07:50] LABS: Calcium 9.8 mg/dL (8.6-10.3); Magnesium 2.2 mg/dL (1.6-2.6); Phosphorous 3.7 mg/dL (2.7-4.5); Potassium 4.2 mEq/L (3.5-5.1)
[2019-06-23] MEDS: cefTRIAXone 1,000 MG in Water for inj. (sterile) 10 ML IVP SCH (08:26)
[2019-06-23] MEDS: Insulin DETEMIR 100 UNIT/ML X5UNITS SQ SCH ×2 (08:26→21:24)
[2019-06-23] MEDS: Loratadine 10 MG TABLET PO SCH (08:27)
[2019-06-23] MEDS: Insulin LISPRO 300 UNITS/3 ML VIAL SQ SCH ×6 (08:27→21:24)
[2019-06-23] MEDS: *HR* Rivaroxaban 10 MG TABLET PO SCH (08:27)
[2019-06-23] MEDS: Aspirin Enteric Coated 81 MG Tablet PO SCH (08:27)
[2019-06-23] MEDS: Metoprolol XL (24 HR) Succ 50 MG TAB.ER.24H PO SCH (08:28)
[2019-06-23] MEDS: Magnesium Oxide 400 MG TABLET PO SCH ×2 (08:28→21:23)
[2019-06-23] MEDS ORDERED: Metoprolol XL (24 HR) Succ 50 MG TAB.ER.24H PO SCH (09:01)
[2019-06-24] MEDS: Ipratropium Neb 0.5 MG NEBULIZER IH SCH ×3 (03:22→11:20)
[2019-06-24] MEDS: MethylPREDNISolone 40 MG/ML VIAL IVP SCH (05:57)
[2019-06-24 07:05] LABS: Magnesium 2.3 mg/dL (1.6-2.6); Phosphorous 4.6 mg/dL (2.7-4.5); Potassium 4.6 mEq/L (3.5-5.1)
[2019-06-24 07:31] VITALS: BP 109/75
[2019-06-24] MEDS: Insulin LISPRO 300 UNITS/3 ML VIAL SQ SCH ×4 (07:33→12:04)
[2019-06-24] MEDS: Budesonide/Formoterol 160/4.5 1 PUFF INH IH SCH (07:34)
[2019-06-24] MEDS: Loratadine 10 MG TABLET PO SCH (09:37)
[2019-06-24] MEDS: Aspirin Enteric Coated 81 MG Tablet PO SCH (09:37)
[2019-06-24] MEDS: *HR* Rivaroxaban 10 MG TABLET PO SCH (09:37)
[2019-06-24] MEDS: cefTRIAXone 1,000 MG in Water for inj. (sterile) 10 ML IVP SCH (09:37)
[2019-06-24] MEDS: Magnesium Oxide 400 MG TABLET PO SCH (09:37)
[2019-06-24] MEDS: Insulin DETEMIR 100 UNIT/ML X5UNITS SQ SCH (09:44)
== END 2019-06-24 12:24 | disposition home health service (06) ==
LOC: EMEROOARM 13:51 → 2ANU 13:51 → SUATTDRO 17:39 → 2ANU 18:43
PROVIDERS: ADMIT Internal Medicine; ATTEND Internal Medicine

== ENCOUNTER 2020-03-11 14:16 | Inpatient (IN) ==
[2020-03-11] MEDS ORDERED: 0.9 % Sodium Chloride 1,000 ML IVC ONE ×3 (14:41→17:22)
[2020-03-11] MEDS ORDERED: methylPREDNISolone 125 MG/2 ML VIAL IVP ONE (14:44)
[2020-03-11] MEDS ORDERED: Ipratropium/Albuterol Neb 3 ML IH ONE (14:44)
[2020-03-11] MEDS ORDERED: Ondansetron 4 MG/2 ML VIAL IVP ONE (15:05)
[2020-03-11] MEDS ORDERED: Isovue-370 500 ML BOTTLE IVP ONE (15:15)
[2020-03-11 15:24] LABS: Basophils % 0.3 %; Eosinophils # 0.1 K/mcL (0.0-0.6); Eosinophils % 0.8 %; Hematocrit 40.1 % (35.3-44.9); Hemoglobin 12.5 g/dL (11.5-15.4); Immature Granulocytes % 0.4 % (0-4); Lymphocytes # 0.9 K/mcL (0.6-4.6); Lymphocytes % 7.7 %; Mean Corpuscular HGB Conc 31.2 g/dL (31.6-35.5); Mean Corpuscular Hemoglobin 30.6 pg (28.0-33.3); Mean Platelet Volume 10.8 fL (9.4-12.4); Monocytes # 0.6 K/mcL (0.0-1.3); Monocytes % 5.4 %; Platelet Count 221 K/mcL (140-400); Red Blood Count 4.09 M/mcL (3.82-4.97); Red Cell Distribution Width 13.8 % (11.5-14.5); Segmented Neutrophils % 85.4 %; White Blood Count 11.8 K/mcL (4.3-11.1)
[2020-03-11 15:38] LABS: Albumin 3.6 g/dL (3.5-5.7); Albumin/Globulin Ratio 1.3 (1.1-2.2); Bilirubin,Direct 0.1 mg/dL (0.0-0.2); Bilirubin,Indirect 0.6 mg/dL (0.0-1.0); Bilirubin,Total 0.7 mg/dL (0.3-1.0); Calcium 9.9 mg/dL (8.6-10.3); Globulin 2.8 g/dL (2.4-3.5); Potassium 3.2 mEq/L (3.5-5.1); Total Protein 6.4 g/dL (6.4-8.9)
[2020-03-11] MEDS ORDERED: Albuterol 2.5 MG/3 ML NEBULIZER IH ONE (17:07)
[2020-03-11] MEDS ORDERED: Vancomycin 1,500 MG/265 ML IV.SOLN IVPB ONE (17:20)
[2020-03-11] MEDS ORDERED: Piperacillin/Tazobactam 3.375 GM in 0.9 % Sodium Chloride Mini Bag 100 ML IVPB ONE (17:20)
[2020-03-11] MEDS ORDERED: Naloxone 0.4 MG/ML INJ IVP PRN (18:05)
[2020-03-11] MEDS ORDERED: Acetaminophen 325 MG TABLET PO PRN (18:05)
[2020-03-11] MEDS ORDERED: Ondansetron 4 MG/2 ML VIAL IVP PRN (18:05)
[2020-03-11 18:11] LABS: Adenovirus Not Detected (Not Detect); Coronavirus 229E Not Detected (Not Detect); Coronavirus HKU1 Not Detected (Not Detect); Coronavirus NL63 Not Detected (Not Detect); Coronavirus OC43 Not Detected (Not Detect); Human Metapneumovirus Not Detected (Not Detect); Human Rhinovirus/Enterovirus Not Detected (Not Detect); Influenza A Subtype 2009 H1 Not Detected (Not Detect); SARS-CoV-2 Not Detected (Not Detect)
[2020-03-11 18:12] LABS: Bordetella Pertussis Not Detected (Not Detect); Chlamydophila pneumoniae Not Detected (Not Detect); Influenza B Not Detected (Not Detect); Mycoplasma pneumoniae Not Detected (Not Detect); Parainfluenza Virus 1 Not Detected (Not Detect); Parainfluenza Virus 2 Not Detected (Not Detect); Parainfluenza Virus 3 Not Detected (Not Detect); Parainfluenza Virus 4 Not Detected (Not Detect); Respiratory Syncytial Virus Not Detected (Not Detect)
[2020-03-11] MEDS ORDERED: *HR* Dextrose 50 % in Water (Vial) 50 ML VIAL IVP PRN (18:46)
[2020-03-11] MEDS ORDERED: D5% in Water 1,000 ML IVC PRN (18:46)
[2020-03-11] MEDS ORDERED: Dextrose Gel 15 GM/37.5 ML TUBE PO PRN ×2 (18:46)
[2020-03-11 20:42] LABS: VBG HCO3 30 mEq/L (21-27); VBG PCO2 54 mmHg (41-51); VBG PH 7.36 pH Units (7.32-7.42); VBG PO2 46 mmHg (25-50)
[2020-03-11] MEDS ORDERED: Insulin LISPRO 300 UNITS/3 ML VIAL SQ SCH (21:00)
[2020-03-11 21:01] LABS: Troponin I 0.03 ng/mL (< 0.04)
[2020-03-11] MEDS: 0.9 % Sodium Chloride 1,000 ML IVC SCH ×2 (21:22→23:05)
[2020-03-11] MEDS ORDERED: 0.9 % Sodium Chloride 1,000 ML IVC SCH (21:30)
[2020-03-11 21:47] LABS: Albumin 3.4 g/dL (3.5-5.7); Albumin/Globulin Ratio 1.4 (1.1-2.2); Bilirubin,Direct 0.1 mg/dL (0.0-0.2); Bilirubin,Indirect 0.4 mg/dL (0.0-1.0); Bilirubin,Total 0.5 mg/dL (0.3-1.0); Calcium 8.6 mg/dL (8.6-10.3); Globulin 2.4 g/dL (2.4-3.5); Potassium 2.9 mEq/L (3.5-5.1); Total Protein 5.8 g/dL (6.4-8.9)
[2020-03-11] MEDS: Levalbuterol Neb 0.63 MG/3 ML IH SCH (22:19)
[2020-03-11 22:35] LABS: ABG Base Excess 4 mEq/L (-2 to 3); ABG HCO3 30 mEq/L (21-27); ABG Oxygen Saturation 85 % (95-98); ABG PCO2 49 mmHg (35-45); ABG PH 7.39 pH Units (7.32-7.45); ABG PO2 51 mmHg (85-104); ABG TCO2 31 mEq/L (20-26)
[2020-03-11 22:38] LABS: Basophils % 0.1 %; Immature Granulocytes % 0.5 % (0-4); Lymphocytes # 0.3 K/mcL (0.6-4.6); Lymphocytes % 3.1 %; Mean Corpuscular HGB Conc 30.9 g/dL (31.6-35.5); Mean Corpuscular Volume 100.6 fL (83.0-100.0); Mean Platelet Volume 10.5 fL (9.4-12.4); Monocytes # 0.1 K/mcL (0.0-1.3); Monocytes % 0.6 %; Neutrophils # 7.8 K/mcL (1.6-8.9); Platelet Count 189 K/mcL (140-400); Red Blood Count 3.48 M/mcL (3.82-4.97); Segmented Neutrophils % 95.7 %; White Blood Count 8.1 K/mcL (4.3-11.1)
[2020-03-11 22:41] LABS: INR 1.7; Prothrombin Time 19.2 Seconds (9.4-12.1)
[2020-03-11 22:44] LABS: Activated Partial Thrombo Time 35.4 Seconds (26.0-36.0); Hemoglobin 10.8 g/dL (11.5-15.4)
[2020-03-11] MEDS: Piperacillin/Tazobactam 3.375 GM in 0.9 % Sodium Chloride Mini Bag 100 ML IVPB SCH (23:06)
[2020-03-12 00:11] LABS: Bilirubin,Urine Negative (Negative); Blood,Urine Negative (Negative); Clarity,Urine Clear (Clear); Color,Urine Yellow (Yellow); Glucose,Urine (UA) 250 mg/dL (Normal); Ketones,Urine Negative (Negative); Leukocyte Esterase,Urine Negative (Negative); Nitrite,Urine Negative (Negative); PH,Urine 5.5 pH Units (5.0-8.0); Protein,Urine Negative (Neg-Trace); Urobilinogen,Urine Normal (Normal)
[2020-03-12 00:15] LABS: Hyaline Casts,Urine Few per lpf (None Seen); RBC,Urine 0-3 per hpf (0-3); Squamous Epithelial Cell,Urine Few per hpf (None-Few)
[2020-03-12 02:18] LABS: Basophils % 0.1 %; Hematocrit 34.4 % (35.3-44.9); Hemoglobin 10.6 g/dL (11.5-15.4); Immature Granulocytes % 0.9 % (0-4); Lymphocytes # 0.4 K/mcL (0.6-4.6); Lymphocytes % 5.4 %; Mean Corpuscular HGB Conc 30.8 g/dL (31.6-35.5); Mean Corpuscular Hemoglobin 30.8 pg (28.0-33.3); Mean Platelet Volume 10.6 fL (9.4-12.4); Monocytes # 0.1 K/mcL (0.0-1.3); Monocytes % 1.7 %; Neutrophils # 6.5 K/mcL (1.6-8.9); Platelet Count 184 K/mcL (140-400); Red Blood Count 3.44 M/mcL (3.82-4.97); Segmented Neutrophils % 91.9 %
[2020-03-12 02:42] LABS: Calcium 8.2 mg/dL (8.6-10.3); Magnesium 1.8 mg/dL (1.6-2.6); Potassium 3.9 mEq/L (3.5-5.1)
[2020-03-12] MEDS: Levalbuterol Neb 0.63 MG/3 ML IH SCH ×4 (03:47→21:58)
[2020-03-12] MEDS ORDERED: Insulin LISPRO 300 UNITS/3 ML VIAL SQ SCH ×2 (07:30→21:00)
[2020-03-12] MEDS: MethylPREDNISolone 40 MG/ML VIAL IVP SCH ×3 (08:25→17:25)
[2020-03-12] MEDS: Piperacillin/Tazobactam 3.375 GM in 0.9 % Sodium Chloride Mini Bag 100 ML IVPB SCH (08:26)
[2020-03-12] MEDS ORDERED: 0.9 % Sodium Chloride 1,000 ML IVC SCH (11:00)
[2020-03-12 11:19] LABS: Estimated Average Glucose 146 mg/dl
[2020-03-12] MEDS: Insulin LISPRO 300 UNITS/3 ML VIAL SQ SCH ×2 (14:49→17:26)
[2020-03-12] MEDS ORDERED: *HR* Rivaroxaban 10 MG TABLET PO SCH (17:00)
[2020-03-12] MEDS: Metoprolol XL (24 HR) Succ 50 MG TAB.ER.24H PO SCH (17:25)
[2020-03-12] MEDS ORDERED: *HR* Heparin 5,000 UNIT/ML VIAL SQ SCH (18:00)
[2020-03-12] MEDS ORDERED: Vancomycin 1,500 MG/265 ML IV.SOLN IVPB SCH (19:00)
[2020-03-12] MEDS: Doxycycline 100 MG CAPSULE PO SCH (21:09)
[2020-03-12] MEDS ORDERED: *HR* Metoprolol 5 MG/5 ML VIAL IVP ONE (22:04)
[2020-03-13] MEDS: Levalbuterol Neb 0.63 MG/3 ML IH SCH ×2 (03:44→10:30)
[2020-03-13] MEDS: MethylPREDNISolone 40 MG/ML VIAL IVP SCH (05:35)
[2020-03-13 07:01] LABS: Basophils % 0.1 %; Hematocrit 35.3 % (35.3-44.9); Hemoglobin 10.5 g/dL (11.5-15.4); Immature Granulocytes % 0.5 % (0-4); Lymphocytes # 0.8 K/mcL (0.6-4.6); Mean Corpuscular HGB Conc 29.7 g/dL (31.6-35.5); Mean Corpuscular Hemoglobin 30.4 pg (28.0-33.3); Mean Corpuscular Volume 102.3 fL (83.0-100.0); Mean Platelet Volume 10.7 fL (9.4-12.4); Monocytes # 0.6 K/mcL (0.0-1.3); Monocytes % 4.8 %; Neutrophils # 11.7 K/mcL (1.6-8.9); Platelet Count 212 K/mcL (140-400); Red Blood Count 3.45 M/mcL (3.82-4.97); Red Cell Distribution Width 14.4 % (11.5-14.5); Segmented Neutrophils % 88.6 %; White Blood Count 13.2 K/mcL (4.3-11.1)
[2020-03-13 07:24] LABS: Calcium 9.3 mg/dL (8.6-10.3); Magnesium 2.1 mg/dL (1.6-2.6); Phosphorous 3.1 mg/dL (2.7-4.5); Potassium 4.2 mEq/L (3.5-5.1)
[2020-03-13] MEDS: Metoprolol XL (24 HR) Succ 50 MG TAB.ER.24H PO SCH (08:11)
[2020-03-13] MEDS: Doxycycline 100 MG CAPSULE PO SCH (08:11)
[2020-03-13] MEDS: Insulin LISPRO 300 UNITS/3 ML VIAL SQ SCH (08:14)
[2020-03-13] MEDS ORDERED: *HR* OxyCODONE/APAP 10/325 TABLET PO PRN (08:39)
[2020-03-13] MEDS ORDERED: metOLazone 2.5 MG TABLET PO PRN (08:39)
[2020-03-13] MEDS ORDERED: Fluticasone Propionate Nasal 50 MCG/SPRAY BOTTLE NS PRN (08:39)
[2020-03-13] MEDS ORDERED: Cyanocobalamin (B-12) 1,000 MCG/ML VIAL IM SCH (08:45)
[2020-03-13] MEDS ORDERED: Furosemide 40 MG TABLET PO SCH (09:00)
[2020-03-13] MEDS ORDERED: (Roflumilast [Daliresp] 500 MCG) PO SCH (09:00)
[2020-03-13] MEDS ORDERED: Gabapentin 300 MG CAPSULE PO SCH (09:00)
[2020-03-13] MEDS ORDERED: Budesonide/Formoterol 160/4.5 1 PUFF INH IH SCH (10:00)
[2020-03-13 10:40] VITALS: BP 131/82
[2020-03-14] MEDS ORDERED: Metoprolol XL (24 HR) Succ 50 MG TAB.ER.24H PO SCH (09:00)
== END 2020-03-13 12:26 | disposition home health service (06) | DRG 871 ==
LOC: SUATTDRO → 3BNU 14:16 → EMEROOARM 14:16 → SUATTDRO 18:40 → 3BNU 19:27
PROVIDERS: ADMIT Student in an Organized Health Care Education/Training Program; ATTEND Internal Medicine

== ENCOUNTER 2020-03-14 16:36 | Inpatient (IN) ==
[2020-03-14 19:00] LABS: ABG Base Excess 9 mEq/L (-2 to 3); ABG HCO3 38 mEq/L (21-27); ABG Oxygen Saturation 97 % (95-98); ABG PCO2 78 mmHg (35-45); ABG PO2 108 mmHg (85-104); ABG TCO2 41 mEq/L (20-26)
[2020-03-14] MEDS ORDERED: Naloxone 0.4 MG/ML INJ IVP PRN (19:16)
[2020-03-14] MEDS: DilTIAZem 50 MG/50 ML IV.SOLN IVC SCH (19:53)
[2020-03-14] MEDS ORDERED: Acetaminophen 325 MG TABLET PO PRN (20:01)
[2020-03-14] MEDS ORDERED: *HR* Promethazine 25 MG/ML VIAL IVP PRN (20:01)
[2020-03-14 20:51] LABS: Basophils % 0.2 %; Eosinophils % 0.4 %; Hematocrit 37.9 % (35.3-44.9); Hemoglobin 11.1 g/dL (11.5-15.4); Immature Granulocytes % 0.7 % (0-4); Lymphocytes % 9.2 %; Mean Corpuscular HGB Conc 29.3 g/dL (31.6-35.5); Mean Corpuscular Hemoglobin 30.5 pg (28.0-33.3); Mean Corpuscular Volume 104.1 fL (83.0-100.0); Mean Platelet Volume 10.8 fL (9.4-12.4); Monocytes # 1.1 K/mcL (0.0-1.3); Monocytes % 10.1 %; Neutrophils # 8.8 K/mcL (1.6-8.9); Platelet Count 198 K/mcL (140-400); Red Blood Count 3.64 M/mcL (3.82-4.97); Red Cell Distribution Width 14.7 % (11.5-14.5); Segmented Neutrophils % 79.4 %; White Blood Count 11.1 K/mcL (4.3-11.1)
[2020-03-14 21:14] LABS: Calcium 9.3 mg/dL (8.6-10.3); Potassium 4.3 mEq/L (3.5-5.1)
[2020-03-14] MEDS ORDERED: D5% in Water 1,000 ML IVC PRN (21:17)
[2020-03-14] MEDS ORDERED: Dextrose Gel 15 GM/37.5 ML TUBE PO PRN ×2 (21:17)
[2020-03-14] MEDS ORDERED: *HR* Dextrose 50 % in Water (Vial) 50 ML VIAL IVP PRN (21:17)
[2020-03-14] MEDS ORDERED: Fluticasone Propionate Nasal 50 MCG/SPRAY BOTTLE NS PRN (21:27)
[2020-03-14] MEDS ORDERED: Ipratropium/Albuterol Neb 3 ML IH PRN (21:29)
[2020-03-14] MEDS: Budesonide/Formoterol 160/4.5 1 PUFF INH IH SCH (22:15)
[2020-03-14 22:31] LABS: ABG Base Excess 11 mEq/L (-2 to 3); ABG HCO3 39 mEq/L (21-27); ABG Oxygen Saturation 96 % (95-98); ABG PCO2 74 mmHg (35-45); ABG PH 7.33 pH Units (7.32-7.45); ABG PO2 93 mmHg (85-104); ABG TCO2 42 mEq/L (20-26); Blood Gas Modality BiLevel; Blood Gas VT 450 cc
[2020-03-15] MEDS: Insulin LISPRO 300 UNITS/3 ML VIAL SQ SCH ×3 (01:32→12:28)
[2020-03-15] MEDS: DilTIAZem 50 MG/50 ML IV.SOLN IVC SCH ×6 (04:49→23:40)
[2020-03-15 04:58] LABS: INR 1.1; Prothrombin Time 12.1 Seconds (9.4-12.1)
[2020-03-15 04:59] LABS: Basophils % 0.4 %; Eosinophils # 0.1 K/mcL (0.0-0.6); Eosinophils % 1.1 %; Hematocrit 33.1 % (35.3-44.9); Hemoglobin 9.8 g/dL (11.5-15.4); Immature Granulocytes % 0.6 % (0-4); Lymphocytes % 12.5 %; Mean Corpuscular HGB Conc 29.6 g/dL (31.6-35.5); Mean Corpuscular Volume 104.7 fL (83.0-100.0); Mean Platelet Volume 10.6 fL (9.4-12.4); Monocytes # 0.7 K/mcL (0.0-1.3); Monocytes % 8.3 %; Neutrophils # 6.4 K/mcL (1.6-8.9); Platelet Count 184 K/mcL (140-400); Red Blood Count 3.16 M/mcL (3.82-4.97); Red Cell Distribution Width 14.6 % (11.5-14.5); Segmented Neutrophils % 77.1 %; White Blood Count 8.3 K/mcL (4.3-11.1)
[2020-03-15 05:05] LABS: BUN/Creatinine Ratio 25 (6-26); Blood Urea Nitrogen 27 mg/dL (8-23); Calcium 9.1 mg/dL (8.6-10.3); Carbon Dioxide 36 mEq/L (23-29); Chloride 107 mEq/L (98-107); Glucose 115 mg/dL (70-105); Magnesium 2.1 mg/dL (1.6-2.6); Osmolality,Calculated 310 (280-300); Potassium 3.9 mEq/L (3.5-5.1); Sodium 147 mEq/L (136-145); eGFR For African Americans > 60 (> 60); eGFR For Non-African Americans 50 (> 60)
[2020-03-15 07:54] LABS: ABG Base Excess 9 mEq/L (-2 to 3); ABG HCO3 35 mEq/L (21-27); ABG Oxygen Saturation 98 % (95-98); ABG PCO2 58 mmHg (35-45); ABG PH 7.39 pH Units (7.32-7.45); ABG PO2 117 mmHg (85-104); ABG TCO2 37 mEq/L (20-26)
[2020-03-15] MEDS: Metoprolol XL (24 HR) Succ 50 MG TAB.ER.24H PO SCH (08:46)
[2020-03-15] MEDS: *HR* Rivaroxaban 10 MG TABLET PO SCH (08:46)
[2020-03-15] MEDS: predniSONE 10 MG TABLET PO SCH (08:46)
[2020-03-15] MEDS ORDERED: REVEFENACIN 175 MCG AER SCH (09:00)
[2020-03-15] MEDS ORDERED: Roflumilast [Daliresp] 500 MCG) PO SCH (09:00)
[2020-03-15] MEDS: Budesonide/Formoterol 160/4.5 1 PUFF INH IH SCH ×2 (10:37→20:15)
[2020-03-15] MEDS: Tiotropium 18 MCG inhalation IH SCH ×2 (10:58→11:16)
[2020-03-16 03:12] LABS: Hematocrit 34.4 % (35.3-44.9); Hemoglobin 10.3 g/dL (11.5-15.4); Mean Corpuscular HGB Conc 29.9 g/dL (31.6-35.5); Mean Corpuscular Hemoglobin 30.1 pg (28.0-33.3); Mean Corpuscular Volume 100.6 fL (83.0-100.0); Mean Platelet Volume 10.6 fL (9.4-12.4); Platelet Count 201 K/mcL (140-400); Red Blood Count 3.42 M/mcL (3.82-4.97); Red Cell Distribution Width 14.2 % (11.5-14.5); White Blood Count 8.1 K/mcL (4.3-11.1)
[2020-03-16 03:17] LABS: % Iron Saturation 19 % (15-50); Iron 50 mcg/dL (50-170); Transferrin 186 mg/dL (203-362)
[2020-03-16 03:18] LABS: BUN/Creatinine Ratio 26 (6-26); Blood Urea Nitrogen 25 mg/dL (8-23); Calcium 9.4 mg/dL (8.6-10.3); Carbon Dioxide 32 mEq/L (23-29); Chloride 105 mEq/L (98-107); Glucose 173 mg/dL (70-105); Magnesium 2.1 mg/dL (1.6-2.6); Osmolality,Calculated 307 (280-300); Phosphorous 2.9 mg/dL (2.7-4.5); Potassium 3.9 mEq/L (3.5-5.1); Sodium 144 mEq/L (136-145); eGFR For African Americans > 60 (> 60); eGFR For Non-African Americans 56 (> 60)
[2020-03-16 03:42] LABS: Folate 12.1 ng/mL (3.0-16.0)
[2020-03-16 03:52] LABS: Vitamin B12 > 1500 pg/mL (250-1100)
[2020-03-16 04:32] LABS: ABG Base Excess 9 mEq/L (-2 to 3); ABG HCO3 34 mEq/L (21-27); ABG Oxygen Saturation 91 % (95-98); ABG PCO2 51 mmHg (35-45); ABG PH 7.43 pH Units (7.32-7.45); ABG PO2 61 mmHg (85-104); ABG TCO2 36 mEq/L (20-26)
[2020-03-16] MEDS: Tiotropium 18 MCG inhalation IH SCH (07:29)
[2020-03-16] MEDS: Budesonide/Formoterol 160/4.5 1 PUFF INH IH SCH ×2 (07:29→22:11)
[2020-03-16] MEDS: Metoprolol XL (24 HR) Succ 50 MG TAB.ER.24H PO SCH (07:59)
[2020-03-16] MEDS: predniSONE 10 MG TABLET PO SCH (07:59)
[2020-03-16] MEDS: *HR* Rivaroxaban 10 MG TABLET PO SCH (07:59)
[2020-03-17] MEDS ORDERED: Melatonin 3 MG TABLET PO ONE (01:14)
[2020-03-17 01:58] LABS: Hematocrit 34.4 % (35.3-44.9); Hemoglobin 10.3 g/dL (11.5-15.4); Mean Corpuscular HGB Conc 29.9 g/dL (31.6-35.5); Mean Corpuscular Hemoglobin 29.9 pg (28.0-33.3); Mean Platelet Volume 10.5 fL (9.4-12.4); Platelet Count 214 K/mcL (140-400); Red Blood Count 3.44 M/mcL (3.82-4.97); Red Cell Distribution Width 14.1 % (11.5-14.5); White Blood Count 8.7 K/mcL (4.3-11.1)
[2020-03-17 02:18] LABS: BUN/Creatinine Ratio 25 (6-26); Blood Urea Nitrogen 21 mg/dL (8-23); Calcium 9.6 mg/dL (8.6-10.3); Carbon Dioxide 30 mEq/L (23-29); Chloride 106 mEq/L (98-107); Glucose 195 mg/dL (70-105); Osmolality,Calculated 306 (280-300); Potassium 3.8 mEq/L (3.5-5.1); Sodium 144 mEq/L (136-145); eGFR For African Americans > 60 (> 60); eGFR For Non-African Americans > 60 (> 60)
[2020-03-17 07:23] VITALS: BP 140/74
[2020-03-17] MEDS: Budesonide/Formoterol 160/4.5 1 PUFF INH IH SCH (07:54)
[2020-03-17] MEDS: Tiotropium 18 MCG inhalation IH SCH (07:55)
[2020-03-17] MEDS ORDERED: FLU Vac QV HD 20-21 (65YR+)/PF 0.7 ML SYRINGE IM ONE (09:41)
[2020-03-17] MEDS: *HR* Rivaroxaban 10 MG TABLET PO SCH (09:51)
[2020-03-17] MEDS: Metoprolol XL (24 HR) Succ 50 MG TAB.ER.24H PO SCH (09:51)
[2020-03-17] MEDS: predniSONE 10 MG TABLET PO SCH (09:51)
[2020-03-17] MEDS ORDERED: FLU Vac QV 20-21 (6Month+)/PF 0.5 ML SYRINGE IM ONE (09:53)
== END 2020-03-17 12:30 | disposition home health service (06) | DRG 308 ==
LOC: 2ANU → SUATTDRO 18:25
PROVIDERS: ADMIT Internal Medicine; ATTEND Internal Medicine

== ENCOUNTER 2021-04-17 12:26 | Inpatient (IN) ==
[2021-04-17 13:51] LABS: ABG Base Excess 11 mEq/L (-2 to 3); ABG HCO3 38 mEq/L (21-27); ABG Oxygen Saturation 99 % (95-98); ABG PCO2 64 mmHg (35-45); ABG PH 7.38 pH Units (7.32-7.45); ABG PO2 152 mmHg (85-104); ABG TCO2 40 mEq/L (20-26)
[2021-04-17 14:27] LABS: Mean Corpuscular Volume 99.3 fL (83.0-100.0); Mean Platelet Volume 9.5 fL (9.4-12.4); Red Cell Distribution Width 17.8 % (11.5-14.5)
[2021-04-17 14:28] LABS: Hematocrit 28.9 % (35.3-44.9); Hemoglobin 8.1 g/dL (11.5-15.4); Mean Corpuscular Hemoglobin 27.8 pg (28.0-33.3); Platelet Count 376 K/mcL (140-400); Red Blood Count 2.91 M/mcL (3.82-4.97)
[2021-04-17 14:35] LABS: INR 1.5; Prothrombin Time 16.9 Seconds (9.4-12.1)
[2021-04-17 14:38] LABS: Activated Partial Thrombo Time 32.3 Seconds (26.0-36.0)
[2021-04-17 15:42] LABS: Troponin I 0.04 ng/mL (< 0.04)
[2021-04-17 15:48] LABS: Hypochromasia Present (Not Present); Lymphocytes # 1.1 K/mcL (0.6-4.6); Monocytes # 0.2 K/mcL (0.0-1.3); Neutrophils # 7.7 K/mcL (1.6-8.9)
[2021-04-17 15:49] LABS: Anisocytosis 1+ (Not Present); Platelet Estimate Normal (Normal); Poikilocytosis 1+ (Not Present); Polychromasia 1+ (Not Present)
[2021-04-17 15:51] LABS: Nucleated Red Blood Cells 2 /100 WBC (0); Reactive Lymphocytes Present (Not Present)
[2021-04-17 16:06] LABS: Calcium 9.2 mg/dL (8.6-10.3); Potassium 3.7 mEq/L (3.5-5.1)
[2021-04-17] MEDS ORDERED: Furosemide 40 MG/4 ML VIAL IVP ONE (16:52)
[2021-04-17] MEDS ORDERED: Isovue-370 500 ML BOTTLE IVP ONE (17:11)
[2021-04-17] MEDS ORDERED: Aspirin 325 MG TABLET PO ONE (17:14)
[2021-04-17 17:55] LABS: Influenza A PCR Negative (Negative); Influenza B PCR Negative (Negative); Resp. Syncytial Virus PCR Negative (Negative)
[2021-04-17 17:57] LABS: SARS-CoV-2 by PCR (In House) Negative (Negative)
[2021-04-17] MEDS ORDERED: Naloxone 0.4 MG/ML INJ IVP PRN ×2 (18:12→18:13)
[2021-04-17] MEDS ORDERED: Ipratropium/Albuterol Neb 3 ML IH PRN (18:56)
[2021-04-17] MEDS: Budesonide/Formoterol 160/4.5 1 PUFF INH IH SCH (21:38)
[2021-04-17] MEDS: Melatonin 3 MG TABLET PO PRN (22:13)
[2021-04-18] MEDS ORDERED: Cyanocobalamin (B-12) 1,000 MCG/ML VIAL IM SCH (00:45)
[2021-04-18] MEDS ORDERED: *HR* Metoprolol 5 MG/5 ML VIAL IVP ONE (03:49)
[2021-04-18 06:10] LABS: Basophils % 0.4 %; Eosinophils % 0.4 %; Lymphocytes % 11.9 %; Mean Corpuscular Volume 101.4 fL (83.0-100.0); Red Cell Distribution Width 17.7 % (11.5-14.5)
[2021-04-18 06:12] LABS: Hematocrit 29.2 % (35.3-44.9); Hemoglobin 8.1 g/dL (11.5-15.4); Immature Granulocytes % 0.2 % (0-4); Lymphocytes # 1.1 K/mcL (0.6-4.6); Mean Corpuscular HGB Conc 27.7 g/dL (31.6-35.5); Mean Corpuscular Hemoglobin 28.1 pg (28.0-33.3); Mean Platelet Volume 9.8 fL (9.4-12.4); Monocytes # 0.9 K/mcL (0.0-1.3); Monocytes % 8.9 %; Platelet Count 345 K/mcL (140-400); Red Blood Count 2.88 M/mcL (3.82-4.97); Segmented Neutrophils % 78.2 %; White Blood Count 9.5 K/mcL (4.3-11.1)
[2021-04-18 06:22] LABS: Neutrophils # 7.4 K/mcL (1.6-8.9)
[2021-04-18 06:31] LABS: Calcium 9.1 mg/dL (8.6-10.3); Magnesium 2.2 mg/dL (1.6-2.6); Phosphorous 3.8 mg/dL (2.7-4.5); Potassium 4.1 mEq/L (3.5-5.1)
[2021-04-18 06:37] LABS: Anisocytosis 1+ (Not Present); Macrocytosis Present (Not Present); Platelet Estimate Normal (Normal)
[2021-04-18] MEDS: Budesonide/Formoterol 160/4.5 1 PUFF INH IH SCH ×2 (07:38→20:25)
[2021-04-18] MEDS: DilTIAZem CD (24hr) 120 MG CAP.ER.24H PO SCH (08:25)
[2021-04-18] MEDS: Metoprolol XL (24 HR) Succ 50 MG TAB.ER.24H PO SCH (08:25)
[2021-04-18] MEDS: Cholecalciferol (D-3) 1,000 UNIT (25MCG) TABLET PO SCH (08:25)
[2021-04-18] MEDS: (Roflumilast [Daliresp] 500 MCG Tablet) PO SCH (08:26)
[2021-04-18] MEDS: Ondansetron 4 MG/2 ML VIAL IVP PRN (08:29)
[2021-04-18] MEDS ORDERED: Furosemide 20 MG/2 ML VIAL IVP SCH (09:00)
[2021-04-18] MEDS ORDERED: *HR* OxyCODONE/APAP 10/325 TABLET PO PRN (10:18)
[2021-04-18] MEDS ORDERED: *HR* Rivaroxaban 10 MG TABLET PO SCH (17:00)
[2021-04-18] MEDS: *HR* OxyCODONE/APAP 10/325 TABLET PO PRN (18:08)
[2021-04-18] MEDS: Melatonin 3 MG TABLET PO PRN (21:01)
[2021-04-18] MEDS: traZODone 50 MG TABLET PO SCH (21:01)
[2021-04-19 03:26] LABS: Basophils % 0.2 %; Eosinophils % 0.2 %; Hemoglobin 7.3 g/dL (11.5-15.4)
[2021-04-19 03:27] LABS: Hematocrit 26.3 % (35.3-44.9); Immature Granulocytes % 0.5 % (0-4); Lymphocytes # 1.2 K/mcL (0.6-4.6); Lymphocytes % 7.8 %; Mean Corpuscular HGB Conc 27.8 g/dL (31.6-35.5); Mean Corpuscular Hemoglobin 28.1 pg (28.0-33.3); Mean Corpuscular Volume 101.2 fL (83.0-100.0); Mean Platelet Volume 9.7 fL (9.4-12.4); Monocytes % 6.5 %; Platelet Count 327 K/mcL (140-400); Red Cell Distribution Width 17.6 % (11.5-14.5); Segmented Neutrophils % 84.8 %; White Blood Count 15.3 K/mcL (4.3-11.1)
[2021-04-19 03:41] LABS: Calcium 8.9 mg/dL (8.6-10.3); Magnesium 2.1 mg/dL (1.6-2.6); Potassium 4.3 mEq/L (3.5-5.1)
[2021-04-19 03:50] LABS: Anisocytosis 1+ (Not Present); Hypochromasia Present (Not Present); Polychromasia 1+ (Not Present)
[2021-04-19 03:51] LABS: Basophilic Stippling 1+ (Not Present); Platelet Estimate Normal (Normal)
[2021-04-19] MEDS: *HR* OxyCODONE/APAP 10/325 TABLET PO PRN (05:28)
[2021-04-19] MEDS: Budesonide/Formoterol 160/4.5 1 PUFF INH IH SCH ×2 (07:50→20:56)
[2021-04-19] MEDS: Cholecalciferol (D-3) 1,000 UNIT (25MCG) TABLET PO SCH (08:16)
[2021-04-19] MEDS: DilTIAZem CD (24hr) 120 MG CAP.ER.24H PO SCH (08:16)
[2021-04-19] MEDS: (Roflumilast [Daliresp] 500 MCG Tablet) PO SCH (08:17)
[2021-04-19] MEDS: Metoprolol XL (24 HR) Succ 50 MG TAB.ER.24H PO SCH (08:17)
[2021-04-19] MEDS ORDERED: Vancomycin 1 EACH in 0.9 % Sodium Chloride 250 ML IVPB SCH (14:00)
[2021-04-19] MEDS ORDERED: Vancomycin 1,250 MG/262.5 ML IV.SOLN IVPB ONE (14:00)
[2021-04-19] MEDS ORDERED: *HR* Rivaroxaban 15 MG TABLET PO SCH (17:00)
[2021-04-19] MEDS ORDERED: Cefepime HCl 1,000 MG in Water for inj. (sterile) 10 ML IVP SCH (18:00)
[2021-04-19] MEDS: Melatonin 3 MG TABLET PO PRN (21:16)
[2021-04-19] MEDS: Cefepime HCl 1,000 MG in Water for inj. (sterile) 10 ML IVP SCH (21:16)
[2021-04-20] MEDS: Cefepime HCl 1,000 MG in Water for inj. (sterile) 10 ML IVP SCH ×2 (06:07→17:07)
[2021-04-20 06:17] LABS: Basophils % 0.3 %
[2021-04-20 06:19] LABS: Eosinophils # 0.1 K/mcL (0.0-0.6); Eosinophils % 0.4 %; Hematocrit 25.4 % (35.3-44.9); Hemoglobin 7.2 g/dL (11.5-15.4); Immature Granulocytes % 0.6 % (0-4); Lymphocytes # 0.9 K/mcL (0.6-4.6); Lymphocytes % 7.3 %; Mean Corpuscular HGB Conc 28.3 g/dL (31.6-35.5); Mean Corpuscular Hemoglobin 28.2 pg (28.0-33.3); Mean Corpuscular Volume 99.6 fL (83.0-100.0); Mean Platelet Volume 10.2 fL (9.4-12.4); Monocytes # 1.1 K/mcL (0.0-1.3); Monocytes % 8.5 %; Neutrophils # 10.6 K/mcL (1.6-8.9); Platelet Count 297 K/mcL (140-400); Red Blood Count 2.55 M/mcL (3.82-4.97); Red Cell Distribution Width 17.4 % (11.5-14.5); Segmented Neutrophils % 82.9 %; White Blood Count 12.8 K/mcL (4.3-11.1)
[2021-04-20] MEDS: Budesonide/Formoterol 160/4.5 1 PUFF INH IH SCH ×2 (08:08→19:58)
[2021-04-20] MEDS: Cholecalciferol (D-3) 1,000 UNIT (25MCG) TABLET PO SCH (08:19)
[2021-04-20] MEDS: Metoprolol XL (24 HR) Succ 50 MG TAB.ER.24H PO SCH (08:19)
[2021-04-20] MEDS: DilTIAZem CD (24hr) 120 MG CAP.ER.24H PO SCH (08:26)
[2021-04-20] MEDS: (Roflumilast [Daliresp] 500 MCG Tablet) PO SCH (08:47)
[2021-04-20 10:07] LABS: Calcium 9.2 mg/dL (8.6-10.3); Magnesium 2.2 mg/dL (1.6-2.6); Potassium 4.7 mEq/L (3.5-5.1)
[2021-04-20] MEDS ORDERED: Indomethacin 25 MG CAPSULE PO ONE (13:34)
[2021-04-20] MEDS ORDERED: Colchicine 0.6 MG TABLET PO ONE (13:34)
[2021-04-20] MEDS: *HR* OxyCODONE/APAP 10/325 TABLET PO PRN (17:08)
[2021-04-20] MEDS: 0.9 % Sodium Chloride 1,000 ML IVC SCH (20:25)
[2021-04-20] MEDS: Melatonin 3 MG TABLET PO SCH (21:26)
[2021-04-20] MEDS ORDERED: Vancomycin 1,500 MG/265 ML IV.SOLN IVPB ONE (22:00)
[2021-04-21] MEDS: Cefepime HCl 1,000 MG in Water for inj. (sterile) 10 ML IVP SCH ×2 (04:16→16:18)
[2021-04-21] MEDS: 0.9 % Sodium Chloride 1,000 ML IVC SCH ×2 (05:24→16:20)
[2021-04-21 06:10] LABS: Basophils % 0.1 %; Eosinophils # 0.1 K/mcL (0.0-0.6); Eosinophils % 0.9 %; Hemoglobin 7.1 g/dL (11.5-15.4); Immature Granulocytes % 0.4 % (0-4); Lymphocytes # 0.7 K/mcL (0.6-4.6); Lymphocytes % 8.6 %; Mean Corpuscular HGB Conc 29.6 g/dL (31.6-35.5); Mean Corpuscular Hemoglobin 28.7 pg (28.0-33.3); Mean Corpuscular Volume 97.2 fL (83.0-100.0); Mean Platelet Volume 9.9 fL (9.4-12.4); Monocytes # 0.7 K/mcL (0.0-1.3); Monocytes % 8.3 %; Neutrophils # 6.7 K/mcL (1.6-8.9); Platelet Count 250 K/mcL (140-400); Red Blood Count 2.47 M/mcL (3.82-4.97); Red Cell Distribution Width 17.1 % (11.5-14.5); Segmented Neutrophils % 81.7 %; White Blood Count 8.2 K/mcL (4.3-11.1)
[2021-04-21 06:14] LABS: Calcium 8.6 mg/dL (8.6-10.3); Potassium 4.2 mEq/L (3.5-5.1)
[2021-04-21] MEDS: DilTIAZem CD (24hr) 120 MG CAP.ER.24H PO SCH (07:59)
[2021-04-21] MEDS: Metoprolol XL (24 HR) Succ 50 MG TAB.ER.24H PO SCH (07:59)
[2021-04-21] MEDS: Ondansetron 4 MG/2 ML VIAL IVP PRN (07:59)
[2021-04-21] MEDS: (Roflumilast [Daliresp] 500 MCG Tablet) PO SCH (08:00)
[2021-04-21] MEDS: Cholecalciferol (D-3) 1,000 UNIT (25MCG) TABLET PO SCH (08:02)
[2021-04-21] MEDS: Budesonide/Formoterol 160/4.5 1 PUFF INH IH SCH ×2 (08:42→19:51)
[2021-04-21] MEDS: Colchicine 0.6 MG TABLET PO SCH (10:56)
[2021-04-21] MEDS: allopurinoL 100 MG TABLET PO SCH (16:25)
[2021-04-21] MEDS: predniSONE 10 MG TABLET PO SCH (16:26)
[2021-04-21 17:26] LABS: Hemoglobin 7.6 g/dL (11.5-15.4)
[2021-04-21] MEDS: Melatonin 3 MG TABLET PO SCH (20:17)
[2021-04-21] MEDS: traZODone 50 MG TABLET PO SCH (20:18)
[2021-04-22] MEDS: 0.9 % Sodium Chloride 1,000 ML IVC SCH (05:13)
[2021-04-22] MEDS: Cefepime HCl 1,000 MG in Water for inj. (sterile) 10 ML IVP SCH (05:14)
[2021-04-22] MEDS: Budesonide/Formoterol 160/4.5 1 PUFF INH IH SCH ×2 (07:36→19:59)
[2021-04-22 08:17] LABS: Eosinophils % 0.2 %; Hemoglobin 6.8 g/dL (11.5-15.4); Immature Granulocytes % 0.5 % (0-4)
[2021-04-22 08:19] LABS: Basophils % 0.3 %; Hematocrit 23.4 % (35.3-44.9); Lymphocytes # 0.4 K/mcL (0.6-4.6); Lymphocytes % 6.3 %; Mean Corpuscular HGB Conc 29.1 g/dL (31.6-35.5); Mean Corpuscular Hemoglobin 28.2 pg (28.0-33.3); Mean Corpuscular Volume 97.1 fL (83.0-100.0); Mean Platelet Volume 9.8 fL (9.4-12.4); Monocytes # 0.3 K/mcL (0.0-1.3); Monocytes % 4.4 %; Platelet Count 265 K/mcL (140-400); Red Blood Count 2.41 M/mcL (3.82-4.97); Segmented Neutrophils % 88.3 %; White Blood Count 6.5 K/mcL (4.3-11.1)
[2021-04-22 08:23] LABS: Neutrophils # 5.7 K/mcL (1.6-8.9)
[2021-04-22] MEDS ORDERED: 0.9 % Sodium Chloride 250 ML IVC SCH (08:30)
[2021-04-22 08:35] LABS: Calcium 8.3 mg/dL (8.6-10.3); Potassium 4.6 mEq/L (3.5-5.1)
[2021-04-22] MEDS: allopurinoL 100 MG TABLET PO SCH (08:44)
[2021-04-22] MEDS: Colchicine 0.6 MG TABLET PO SCH (08:44)
[2021-04-22] MEDS: predniSONE 10 MG TABLET PO SCH (08:45)
[2021-04-22] MEDS: Metoprolol XL (24 HR) Succ 50 MG TAB.ER.24H PO SCH (08:45)
[2021-04-22] MEDS: (Roflumilast [Daliresp] 500 MCG Tablet) PO SCH (08:45)
[2021-04-22] MEDS: DilTIAZem CD (24hr) 120 MG CAP.ER.24H PO SCH (08:45)
[2021-04-22] MEDS: Cholecalciferol (D-3) 1,000 UNIT (25MCG) TABLET PO SCH (08:45)
[2021-04-22] MEDS: Melatonin 3 MG TABLET PO SCH (21:05)
[2021-04-22] MEDS: traZODone 50 MG TABLET PO SCH (21:05)
[2021-04-22] MEDS: *HR* OxyCODONE/APAP 10/325 TABLET PO PRN (23:25)
[2021-04-23] MEDS: 0.9 % Sodium Chloride 1,000 ML IVC SCH ×2 (01:59→12:15)
[2021-04-23] MEDS ORDERED: Cefepime HCl 1,000 MG in Water for inj. (sterile) 10 ML IVP SCH (05:00)
[2021-04-23 05:41] LABS: Basophils % 0.4 %; Hematocrit 26.9 % (35.3-44.9); Immature Granulocytes % 0.7 % (0-4); Lymphocytes # 0.8 K/mcL (0.6-4.6); Lymphocytes % 9.1 %; Mean Corpuscular HGB Conc 29.7 g/dL (31.6-35.5); Mean Corpuscular Hemoglobin 28.3 pg (28.0-33.3); Mean Corpuscular Volume 95.1 fL (83.0-100.0); Mean Platelet Volume 9.8 fL (9.4-12.4); Monocytes # 0.8 K/mcL (0.0-1.3); Monocytes % 9.3 %; Neutrophils # 6.8 K/mcL (1.6-8.9); Platelet Count 296 K/mcL (140-400); Red Blood Count 2.83 M/mcL (3.82-4.97); Red Cell Distribution Width 17.5 % (11.5-14.5); Segmented Neutrophils % 80.5 %; White Blood Count 8.4 K/mcL (4.3-11.1)
[2021-04-23 05:58] LABS: Calcium 8.6 mg/dL (8.6-10.3); Potassium 4.6 mEq/L (3.5-5.1)
[2021-04-23 08:10] VITALS: BP 109/58; PULSE 94; TEMP 97.1; O2SAT 99
[2021-04-23] MEDS: Cholecalciferol (D-3) 1,000 UNIT (25MCG) TABLET PO SCH (08:32)
[2021-04-23] MEDS: Metoprolol XL (24 HR) Succ 50 MG TAB.ER.24H PO SCH (08:33)
[2021-04-23] MEDS: allopurinoL 100 MG TABLET PO SCH (08:33)
[2021-04-23] MEDS: DilTIAZem CD (24hr) 120 MG CAP.ER.24H PO SCH (08:33)
[2021-04-23] MEDS: Colchicine 0.6 MG TABLET PO SCH (08:33)
[2021-04-23] MEDS: predniSONE 10 MG TABLET PO SCH (08:33)
[2021-04-23] MEDS: Budesonide/Formoterol 160/4.5 1 PUFF INH IH SCH (11:50)
== END 2021-04-23 15:02 | disposition home health service (06) | DRG 280 ==
LOC: 3NENU 12:26 → EMEROOARM 12:26 → SUATTDRO 18:36 → 3NENU 20:12
PROVIDERS: ADMIT Hospitalist; ATTEND Hospitalist

== ENCOUNTER 2021-05-10 15:28 | Inpatient (IN) ==
[2021-05-10 17:06] LABS: Basophils # 0.1 K/mcL (0.0-0.2); Basophils % 0.5 %; Eosinophils # 0.1 K/mcL (0.0-0.6); Eosinophils % 0.8 %; Hematocrit 37.3 % (35.3-44.9); Hemoglobin 10.8 g/dL (11.5-15.4); Immature Granulocytes % 0.4 % (0-4); Lymphocytes # 0.7 K/mcL (0.6-4.6); Lymphocytes % 5.4 %; Mean Corpuscular Hemoglobin 28.3 pg (28.0-33.3); Mean Corpuscular Volume 97.9 fL (83.0-100.0); Mean Platelet Volume 10.4 fL (9.4-12.4); Monocytes # 0.6 K/mcL (0.0-1.3); Monocytes % 4.8 %; Neutrophils # 10.9 K/mcL (1.6-8.9); Platelet Count 357 K/mcL (140-400); Red Blood Count 3.81 M/mcL (3.82-4.97); Segmented Neutrophils % 88.1 %; White Blood Count 12.4 K/mcL (4.3-11.1)
[2021-05-10] MEDS ORDERED: 0.9 % Sodium Chloride 1,000 ML IVC ONE (17:15)
[2021-05-10 17:16] LABS: INR 2.6; Prothrombin Time 28.8 Seconds (9.4-12.1)
[2021-05-10 17:19] LABS: Activated Partial Thrombo Time 40.5 Seconds (26.0-36.0)
[2021-05-10] MEDS ORDERED: Piperacillin/Tazobactam 3.375 GM in Water for inj. (sterile) 20 ML IVP ONE (17:23)
[2021-05-10] MEDS ORDERED: Vancomycin 1,250 MG/262.5 ML IV.SOLN IVPB ONE (17:23)
[2021-05-10 17:37] LABS: Bilirubin,Urine Negative (Negative); Blood,Urine Negative (Negative); Clarity,Urine Clear (Clear); Color,Urine Light-Yellow (Yellow); Glucose,Urine (UA) Normal (Normal); Ketones,Urine Negative (Negative); Leukocyte Esterase,Urine Negative (Negative); Nitrite,Urine Negative (Negative); PH,Urine 6.5 pH Units (5.0-8.0); Protein,Urine Negative (Neg-Trace); Specific Gravity,Urine 1.011 (1.010-1.025); Urobilinogen,Urine Normal (Normal)
[2021-05-10 17:53] LABS: Calcium 8.6 mg/dL (8.6-10.3); Magnesium 2.1 mg/dL (1.6-2.6); Potassium 4.6 mEq/L (3.5-5.1); Troponin I 0.04 ng/mL (< 0.04)
[2021-05-10] MEDS ORDERED: Naloxone 0.4 MG/ML INJ IVP PRN (18:39)
[2021-05-10] MEDS ORDERED: Ondansetron 4 MG/2 ML VIAL IVP PRN (18:39)
[2021-05-10] MEDS ORDERED: Acetaminophen 325 MG TABLET PO PRN (18:39)
[2021-05-10] MEDS ORDERED: D5% in Water 1,000 ML IVC PRN (18:44)
[2021-05-10] MEDS ORDERED: *HR* Dextrose 50 % in Water (Syg) 50 ML SYRINGE IVP PRN (18:44)
[2021-05-10] MEDS ORDERED: Dextrose Gel 15 GM/37.5 ML TUBE PO PRN ×2 (18:44)
[2021-05-10] MEDS ORDERED: 0.9 % Sodium Chloride 1,000 ML IVC SCH (18:45)
[2021-05-10] MEDS: Insulin LISPRO 300 UNITS/3 ML VIAL SUBQ SCH ×2 (20:26→20:38)
[2021-05-10] MEDS: Lactobacillus 1 EACH CAP.SPRINK PO SCH (20:33)
[2021-05-10] MEDS ORDERED: Ipratropium/Albuterol Neb 3 ML IH PRN (20:35)
[2021-05-10] MEDS: *HR* OxyCODONE/APAP 10/325 TABLET PO PRN (22:24)
[2021-05-10] MEDS: Furosemide 40 MG TABLET PO SCH (22:24)
[2021-05-10] MEDS: traZODone 50 MG TABLET PO SCH (22:24)
[2021-05-10] MEDS: Budesonide/Formoterol 160/4.5 1 PUFF INH IH SCH (23:58)
[2021-05-11] MEDS: Piperacillin/Tazobactam 3.375 GM in 0.9 % Sodium Chloride Mini Bag 100 ML IVPB SCH ×4 (00:41→23:33)
[2021-05-11 02:53] LABS: Basophils % 0.2 %; Eosinophils % 0.2 %; Hematocrit 28.6 % (35.3-44.9); Immature Granulocytes % 0.4 % (0-4); Lymphocytes % 11.2 %; Mean Corpuscular HGB Conc 29.4 g/dL (31.6-35.5); Mean Corpuscular Hemoglobin 28.8 pg (28.0-33.3); Mean Corpuscular Volume 97.9 fL (83.0-100.0); Monocytes # 0.5 K/mcL (0.0-1.3); Monocytes % 6.4 %; Neutrophils # 6.9 K/mcL (1.6-8.9); Platelet Count 287 K/mcL (140-400); Red Blood Count 2.92 M/mcL (3.82-4.97); Segmented Neutrophils % 81.6 %; White Blood Count 8.5 K/mcL (4.3-11.1)
[2021-05-11 02:55] LABS: Hemoglobin 8.4 g/dL (11.5-15.4)
[2021-05-11 02:57] LABS: INR 1.9; Prothrombin Time 20.6 Seconds (9.4-12.1)
[2021-05-11 03:09] LABS: Magnesium 1.9 mg/dL (1.6-2.6); Potassium 3.5 mEq/L (3.5-5.1)
[2021-05-11] MEDS: Ipratropium/Albuterol Neb 3 ML IH SCH ×4 (08:01→21:38)
[2021-05-11] MEDS: Budesonide/Formoterol 160/4.5 1 PUFF INH IH SCH ×2 (08:10→21:38)
[2021-05-11] MEDS: Cholecalciferol (D-3) 1,000 UNIT (25MCG) TABLET PO SCH (08:22)
[2021-05-11] MEDS: allopurinoL 100 MG TABLET PO SCH (08:22)
[2021-05-11] MEDS: DilTIAZem CD (24hr) 240 MG CAP.ER.24H PO SCH (08:22)
[2021-05-11] MEDS: Furosemide 40 MG TABLET PO SCH ×2 (08:22→15:48)
[2021-05-11] MEDS: Metoprolol XL (24 HR) Succ 50 MG TAB.ER.24H PO SCH (08:22)
[2021-05-11] MEDS: Lactobacillus 1 EACH CAP.SPRINK PO SCH ×2 (08:22→20:18)
[2021-05-11] MEDS: Insulin LISPRO 300 UNITS/3 ML VIAL SUBQ SCH ×4 (08:23→20:16)
[2021-05-11] MEDS: Roflumilast [Daliresp] 500 MCG PO SCH (08:24)
[2021-05-11] MEDS: *HR* OxyCODONE/APAP 10/325 TABLET PO PRN (08:28)
[2021-05-11] MEDS ORDERED: Cyanocobalamin (B-12) 1,000 MCG/ML VIAL IM SCH (09:00)
[2021-05-11 12:20] LABS: Hematocrit 28.4 % (35.3-44.9); Hemoglobin 8.3 g/dL (11.5-15.4)
[2021-05-11 13:05] LABS: Adenovirus Not Detected (Not Detect); Bordetella Pertussis Not Detected (Not Detect); Chlamydophila pneumoniae Not Detected (Not Detect); Coronavirus 229E Not Detected (Not Detect); Coronavirus HKU1 Not Detected (Not Detect); Coronavirus NL63 Not Detected (Not Detect); Coronavirus OC43 Not Detected (Not Detect); Human Metapneumovirus Not Detected (Not Detect); Human Rhinovirus/Enterovirus Not Detected (Not Detect); Influenza A Subtype 2009 H1 Not Detected (Not Detect); Influenza B Not Detected (Not Detect); Mycoplasma pneumoniae Not Detected (Not Detect); Parainfluenza Virus 1 Not Detected (Not Detect); Parainfluenza Virus 2 Not Detected (Not Detect); Parainfluenza Virus 3 Not Detected (Not Detect); Parainfluenza Virus 4 Not Detected (Not Detect); Respiratory Syncytial Virus Not Detected (Not Detect); SARS-CoV-2 Not Detected (Not Detect)
[2021-05-11] MEDS ORDERED: *HR* OxyCODONE/APAP 5/325 TABLET PO PRN (15:00)
[2021-05-11] MEDS ORDERED: Vancomycin 1,250 MG/262.5 ML IV.SOLN IVPB SCH (18:00)
[2021-05-11] MEDS: traZODone 50 MG TABLET PO SCH (20:18)
[2021-05-11] MEDS: Furosemide 40 MG/4 ML VIAL IVP SCH (20:19)
[2021-05-12 02:57] LABS: Hemoglobin 8.2 g/dL (11.5-15.4); Immature Granulocytes % 0.4 % (0-4); Mean Corpuscular Volume 98.3 fL (83.0-100.0); Red Cell Distribution Width 17.7 % (11.5-14.5)
[2021-05-12 03:00] LABS: Basophils % 0.4 %; Eosinophils # 0.2 K/mcL (0.0-0.6); Eosinophils % 2.3 %; Hematocrit 28.9 % (35.3-44.9); Lymphocytes # 1.2 K/mcL (0.6-4.6); Lymphocytes % 14.2 %; Mean Corpuscular HGB Conc 28.4 g/dL (31.6-35.5); Mean Corpuscular Hemoglobin 27.9 pg (28.0-33.3); Mean Platelet Volume 9.9 fL (9.4-12.4); Monocytes # 0.6 K/mcL (0.0-1.3); Monocytes % 7.4 %; Neutrophils # 6.1 K/mcL (1.6-8.9); Platelet Count 244 K/mcL (140-400); Red Blood Count 2.94 M/mcL (3.82-4.97); Segmented Neutrophils % 75.3 %; White Blood Count 8.1 K/mcL (4.3-11.1)
[2021-05-12 03:07] LABS: Estimated Average Glucose 108 mg/dl; Hemoglobin A1C 5.4 %
[2021-05-12 03:08] LABS: INR 1.1; Prothrombin Time 12.6 Seconds (9.4-12.1)
[2021-05-12 03:09] LABS: Calcium 8.3 mg/dL (8.6-10.3); Magnesium 1.8 mg/dL (1.6-2.6); Potassium 3.8 mEq/L (3.5-5.1)
[2021-05-12] MEDS: Ipratropium/Albuterol Neb 3 ML IH SCH ×4 (03:21→20:15)
[2021-05-12] MEDS ORDERED: *HR* Midazolam HCl 2 MG/2 ML VIAL ONE (08:06)
[2021-05-12] MEDS ORDERED: Acetaminophen IV 1,000 MG/100 ML BAG IVPB ONE (08:06)
[2021-05-12] MEDS: Insulin LISPRO 300 UNITS/3 ML VIAL SUBQ SCH (08:16)
[2021-05-12] MEDS: Metoprolol XL (24 HR) Succ 50 MG TAB.ER.24H PO SCH (08:18)
[2021-05-12] MEDS: Furosemide 40 MG/4 ML VIAL IVP SCH ×2 (08:18→16:04)
[2021-05-12] MEDS: DilTIAZem CD (24hr) 240 MG CAP.ER.24H PO SCH (08:18)
[2021-05-12] MEDS: allopurinoL 100 MG TABLET PO SCH (08:18)
[2021-05-12] MEDS: Cholecalciferol (D-3) 1,000 UNIT (25MCG) TABLET PO SCH (08:18)
[2021-05-12] MEDS ORDERED: *HR* Succinylcholine 200 MG/10 ML VIAL IVP ONE (08:19)
[2021-05-12] MEDS: Lactobacillus 1 EACH CAP.SPRINK PO SCH ×2 (08:19→21:24)
[2021-05-12] MEDS: Roflumilast [Daliresp] 500 MCG PO SCH (08:19)
[2021-05-12] MEDS: Piperacillin/Tazobactam 3.375 GM in 0.9 % Sodium Chloride Mini Bag 100 ML IVPB SCH ×2 (08:19→16:02)
[2021-05-12] MEDS ORDERED: Lidocaine -MPF 2% 5 ML VIAL ONE (08:19)
[2021-05-12] MEDS ORDERED: Ondansetron 4 MG/2 ML VIAL ONE (08:19)
[2021-05-12] MEDS ORDERED: *HR* Propofol 200 MG/20 ML VIAL IVP ONE (08:20)
[2021-05-12] MEDS ORDERED: *HR* FentaNYL (PF) 100 MCG/2 ML VIAL ONE (08:20)
[2021-05-12] MEDS ORDERED: Lidocaine HCL 4 ML Topical Solution (Laryng-O-Jet Kit Sterile Pak) TP ONE (08:22)
[2021-05-12] MEDS ORDERED: Dexmedetomidine HCl 400 MCG/100 ML MLS IVC ONE (08:54)
[2021-05-12] MEDS ORDERED: *HR* Etomidate 40 MG/20 ML VIAL IVP ONE (08:57)
[2021-05-12] MEDS ORDERED: *HR* OxyCODONE/APAP 5/325 TABLET PO PRN (10:38)
[2021-05-12] MEDS ORDERED: Acetaminophen 325 MG TABLET PO PRN (10:38)
[2021-05-12] MEDS ORDERED: Cyanocobalamin (B-12) 1,000 MCG/ML VIAL IM SCH (10:38)
[2021-05-12] MEDS ORDERED: *HR* Dextrose 50 % in Water (Syg) 50 ML SYRINGE IVP PRN (10:38)
[2021-05-12] MEDS ORDERED: Dextrose Gel 15 GM/37.5 ML TUBE PO PRN ×2 (10:38)
[2021-05-12] MEDS ORDERED: D5% in Water 1,000 ML IVC PRN (10:38)
[2021-05-12] MEDS ORDERED: Naloxone 0.4 MG/ML INJ IVP PRN (10:38)
[2021-05-12] MEDS: Budesonide/Formoterol 160/4.5 1 PUFF INH IH SCH ×2 (11:07→20:15)
[2021-05-12] MEDS ORDERED: Insulin LISPRO 300 UNITS/3 ML VIAL SUBQ SCH ×2 (11:30→21:00)
[2021-05-12] MEDS ORDERED: Ipratropium Neb 0.5 MG NEBULIZER IH PRN (11:41)
[2021-05-12] MEDS ORDERED: Azithromycin 250 MG TABLET PO ONE (15:00)
[2021-05-12] MEDS ORDERED: Vancomycin 1,250 MG/262.5 ML IV.SOLN IVPB SCH (18:00)
[2021-05-12] MEDS: Acetaminophen 325 MG TABLET PO PRN (18:35)
[2021-05-12] MEDS: traZODone 50 MG TABLET PO SCH (21:23)
[2021-05-13] MEDS: Piperacillin/Tazobactam 3.375 GM in 0.9 % Sodium Chloride Mini Bag 100 ML IVPB SCH ×4 (01:15→23:28)
[2021-05-13 03:39] LABS: Basophils % 0.6 %; Eosinophils # 0.2 K/mcL (0.0-0.6); Eosinophils % 2.6 %; Hematocrit 26.1 % (35.3-44.9); Hemoglobin 7.6 g/dL (11.5-15.4); Immature Granulocytes % 0.1 % (0-4); Lymphocytes # 1.2 K/mcL (0.6-4.6); Lymphocytes % 17.1 %; Mean Corpuscular HGB Conc 29.1 g/dL (31.6-35.5); Mean Corpuscular Volume 96.3 fL (83.0-100.0); Mean Platelet Volume 10.1 fL (9.4-12.4); Monocytes # 0.6 K/mcL (0.0-1.3); Monocytes % 8.3 %; Platelet Count 227 K/mcL (140-400); Red Blood Count 2.71 M/mcL (3.82-4.97); Red Cell Distribution Width 17.5 % (11.5-14.5); Segmented Neutrophils % 71.3 %
[2021-05-13 03:46] LABS: INR 1.1; Prothrombin Time 12.4 Seconds (9.4-12.1)
[2021-05-13 03:58] LABS: Calcium 8.5 mg/dL (8.6-10.3); Magnesium 1.8 mg/dL (1.6-2.6); Potassium 3.2 mEq/L (3.5-5.1)
[2021-05-13] MEDS: Ipratropium/Albuterol Neb 3 ML IH SCH ×4 (04:07→20:02)
[2021-05-13] MEDS ORDERED: metOLazone 2.5 MG TABLET PO SCH (08:00)
[2021-05-13] MEDS: Budesonide/Formoterol 160/4.5 1 PUFF INH IH SCH ×2 (08:02→20:03)
[2021-05-13] MEDS ORDERED: ROFLUMILAST 500 MCG PO SCH (09:00)
[2021-05-13] MEDS: Cholecalciferol (D-3) 1,000 UNIT (25MCG) TABLET PO SCH (09:53)
[2021-05-13] MEDS: Metoprolol XL (24 HR) Succ 50 MG TAB.ER.24H PO SCH (09:53)
[2021-05-13] MEDS: allopurinoL 100 MG TABLET PO SCH (09:54)
[2021-05-13] MEDS: DilTIAZem CD (24hr) 240 MG CAP.ER.24H PO SCH (09:54)
[2021-05-13] MEDS: Lactobacillus 1 EACH CAP.SPRINK PO SCH ×2 (09:54→20:17)
[2021-05-13] MEDS: Furosemide 40 MG/4 ML VIAL IVP SCH ×2 (10:03→16:25)
[2021-05-13] MEDS: *HR* OxyCODONE/APAP 5/325 TABLET PO PRN ×3 (10:05→23:38)
[2021-05-13 10:26] LABS: Albumin 2.4 g/dL (3.5-5.7); Bilirubin,Indirect 0.3 mg/dL (0.0-1.0); Bilirubin,Total 0.3 mg/dL (0.3-1.0); Globulin 2.4 g/dL (2.4-3.5); Total Protein 4.8 g/dL (6.4-8.9)
[2021-05-13] MEDS: Acetaminophen 325 MG TABLET PO PRN (12:06)
[2021-05-13] MEDS: Azithromycin 250 MG TABLET PO SCH (12:06)
[2021-05-13] MEDS: *HR* Heparin 5,000 UNIT/ML VIAL SQ SCH (18:01)
[2021-05-13] MEDS: traZODone 50 MG TABLET PO SCH (20:17)
[2021-05-14] MEDS: Ipratropium/Albuterol Neb 3 ML IH SCH ×4 (03:32→20:26)
[2021-05-14] MEDS: *HR* Heparin 5,000 UNIT/ML VIAL SQ SCH (06:00)
[2021-05-14] MEDS: *HR* OxyCODONE/APAP 5/325 TABLET PO PRN ×2 (06:01→17:59)
[2021-05-14] MEDS ORDERED: Albumin 25% 25gram/100mL 25 GM/100 ML IV.SOLN IVPB ONE (07:00)
[2021-05-14 07:54] LABS: Lymphocytes % 15.7 %
[2021-05-14 07:56] LABS: Basophils # 0.1 K/mcL (0.0-0.2); Basophils % 0.8 %; Eosinophils # 0.2 K/mcL (0.0-0.6); Eosinophils % 2.8 %; Hematocrit 29.6 % (35.3-44.9); Hemoglobin 8.4 g/dL (11.5-15.4); Immature Granulocytes % 0.3 % (0-4); Lymphocytes # 1.2 K/mcL (0.6-4.6); Mean Corpuscular HGB Conc 28.4 g/dL (31.6-35.5); Mean Corpuscular Hemoglobin 27.4 pg (28.0-33.3); Mean Corpuscular Volume 96.4 fL (83.0-100.0); Mean Platelet Volume 10.5 fL (9.4-12.4); Monocytes # 0.5 K/mcL (0.0-1.3); Monocytes % 6.6 %; Neutrophils # 5.6 K/mcL (1.6-8.9); Platelet Count 235 K/mcL (140-400); Red Blood Count 3.07 M/mcL (3.82-4.97); Red Cell Distribution Width 17.5 % (11.5-14.5); Segmented Neutrophils % 73.8 %; White Blood Count 7.6 K/mcL (4.3-11.1)
[2021-05-14 08:10] LABS: Calcium 8.9 mg/dL (8.6-10.3); Magnesium 1.9 mg/dL (1.6-2.6); Potassium 3.3 mEq/L (3.5-5.1)
[2021-05-14 08:17] LABS: Anisocytosis 1+ (Not Present); Hypochromasia Present (Not Present); Platelet Estimate Normal (Normal); Poikilocytosis 1+ (Not Present)
[2021-05-14 08:24] LABS: INR 1.1; Prothrombin Time 11.7 Seconds (9.4-12.1)
[2021-05-14] MEDS: Budesonide/Formoterol 160/4.5 1 PUFF INH IH SCH ×2 (10:25→20:25)
[2021-05-14] MEDS: Piperacillin/Tazobactam 3.375 GM in 0.9 % Sodium Chloride Mini Bag 100 ML IVPB SCH ×2 (10:39→17:58)
[2021-05-14] MEDS: allopurinoL 100 MG TABLET PO SCH (10:40)
[2021-05-14] MEDS: Cholecalciferol (D-3) 1,000 UNIT (25MCG) TABLET PO SCH (10:40)
[2021-05-14] MEDS: Furosemide 40 MG/4 ML VIAL IVP SCH (10:40)
[2021-05-14] MEDS: Lactobacillus 1 EACH CAP.SPRINK PO SCH ×2 (10:40→21:15)
[2021-05-14] MEDS: DilTIAZem CD (24hr) 240 MG CAP.ER.24H PO SCH (10:40)
[2021-05-14] MEDS: Metoprolol XL (24 HR) Succ 50 MG TAB.ER.24H PO SCH (10:40)
[2021-05-14] MEDS: Azithromycin 250 MG TABLET PO SCH (12:56)
[2021-05-14] MEDS ORDERED: *HR* Rivaroxaban 15 MG TABLET PO SCH (17:00)
[2021-05-14] MEDS: traZODone 50 MG TABLET PO SCH (21:16)
[2021-05-15] MEDS: Piperacillin/Tazobactam 3.375 GM in 0.9 % Sodium Chloride Mini Bag 100 ML IVPB SCH (00:17)
[2021-05-15] MEDS: Ipratropium/Albuterol Neb 3 ML IH SCH ×4 (03:41→20:34)
[2021-05-15] MEDS: *HR* OxyCODONE/APAP 5/325 TABLET PO PRN ×3 (05:15→21:05)
[2021-05-15 06:51] LABS: Basophils # 0.1 K/mcL (0.0-0.2); Basophils % 0.9 %; Eosinophils # 0.2 K/mcL (0.0-0.6); Eosinophils % 3.3 %; Hematocrit 27.1 % (35.3-44.9); Hemoglobin 7.9 g/dL (11.5-15.4); Immature Granulocytes % 0.3 % (0-4); Lymphocytes % 15.4 %; Mean Corpuscular HGB Conc 29.2 g/dL (31.6-35.5); Mean Corpuscular Hemoglobin 28.4 pg (28.0-33.3); Mean Corpuscular Volume 97.5 fL (83.0-100.0); Monocytes # 0.5 K/mcL (0.0-1.3); Platelet Count 222 K/mcL (140-400); Red Blood Count 2.78 M/mcL (3.82-4.97); Red Cell Distribution Width 17.4 % (11.5-14.5); Segmented Neutrophils % 73.1 %; White Blood Count 6.8 K/mcL (4.3-11.1)
[2021-05-15 07:11] LABS: Calcium 8.5 mg/dL (8.6-10.3); Potassium 3.7 mEq/L (3.5-5.1)
[2021-05-15] MEDS: Budesonide/Formoterol 160/4.5 1 PUFF INH IH SCH ×2 (07:29→20:33)
[2021-05-15] MEDS: Furosemide 40 MG/4 ML VIAL IVP SCH ×2 (09:31→18:29)
[2021-05-15] MEDS: Metoprolol XL (24 HR) Succ 50 MG TAB.ER.24H PO SCH (09:32)
[2021-05-15] MEDS: levoFLOXacin 500 MG TABLET PO SCH (09:32)
[2021-05-15] MEDS: DilTIAZem CD (24hr) 240 MG CAP.ER.24H PO SCH (09:32)
[2021-05-15] MEDS: Lactobacillus 1 EACH CAP.SPRINK PO SCH ×2 (09:32→21:05)
[2021-05-15] MEDS: Cholecalciferol (D-3) 1,000 UNIT (25MCG) TABLET PO SCH (09:32)
[2021-05-15] MEDS: allopurinoL 100 MG TABLET PO SCH (09:32)
[2021-05-15] MEDS: Linezolid 600 MG TABLET PO SCH ×2 (11:00→21:04)
[2021-05-15] MEDS: *HR* Rivaroxaban 10 MG TABLET PO SCH (18:26)
[2021-05-16] MEDS: Ipratropium/Albuterol Neb 3 ML IH SCH ×4 (03:41→21:52)
[2021-05-16] MEDS: *HR* OxyCODONE/APAP 5/325 TABLET PO PRN ×2 (04:46→17:04)
[2021-05-16] MEDS ORDERED: Prochlorperazine 10 MG/2 ML VIAL IVP PRN (04:54)
[2021-05-16 06:40] LABS: Basophils # 0.1 K/mcL (0.0-0.2); Basophils % 0.8 %; Eosinophils # 0.2 K/mcL (0.0-0.6); Eosinophils % 2.7 %; Hematocrit 29.1 % (35.3-44.9); Hemoglobin 8.5 g/dL (11.5-15.4); Immature Granulocytes % 0.5 % (0-4); Lymphocytes % 16.3 %; Mean Corpuscular HGB Conc 29.2 g/dL (31.6-35.5); Mean Corpuscular Hemoglobin 28.3 pg (28.0-33.3); Mean Platelet Volume 10.4 fL (9.4-12.4); Monocytes # 0.5 K/mcL (0.0-1.3); Monocytes % 7.2 %; Neutrophils # 4.5 K/mcL (1.6-8.9); Platelet Count 283 K/mcL (140-400); Red Cell Distribution Width 17.2 % (11.5-14.5); Segmented Neutrophils % 72.5 %; White Blood Count 6.2 K/mcL (4.3-11.1)
[2021-05-16 07:56] LABS: Albumin 2.8 g/dL (3.5-5.7); Albumin/Globulin Ratio 1.1 (1.1-2.2); Bilirubin,Direct 0.1 mg/dL (0.0-0.2); Bilirubin,Indirect 0.2 mg/dL (0.0-1.0); Bilirubin,Total 0.3 mg/dL (0.3-1.0); Calcium 9.3 mg/dL (8.6-10.3); Globulin 2.6 g/dL (2.4-3.5); Potassium 3.5 mEq/L (3.5-5.1); Total Protein 5.4 g/dL (6.4-8.9)
[2021-05-16 07:58] LABS: Folate 6.5 ng/mL (3.0-16.0)
[2021-05-16 08:02] LABS: Vitamin B12 > 1500 pg/mL (250-1100)
[2021-05-16] MEDS: Budesonide/Formoterol 160/4.5 1 PUFF INH IH SCH ×2 (08:15→21:52)
[2021-05-16] MEDS: Furosemide 40 MG/4 ML VIAL IVP SCH (09:11)
[2021-05-16] MEDS: levoFLOXacin 500 MG TABLET PO SCH (09:12)
[2021-05-16] MEDS: Lactobacillus 1 EACH CAP.SPRINK PO SCH ×2 (09:12→21:50)
[2021-05-16] MEDS: Cholecalciferol (D-3) 1,000 UNIT (25MCG) TABLET PO SCH (09:12)
[2021-05-16] MEDS: Metoprolol XL (24 HR) Succ 50 MG TAB.ER.24H PO SCH (09:12)
[2021-05-16] MEDS: Linezolid 600 MG TABLET PO SCH ×2 (09:12→21:50)
[2021-05-16] MEDS: DilTIAZem CD (24hr) 120 MG CAP.ER.24H PO SCH (09:12)
[2021-05-16] MEDS: allopurinoL 100 MG TABLET PO SCH (09:12)
[2021-05-16 16:37] LABS: Glucose,Pleural Fluid 110 mg/dL (No Ref Range); LDH,Pleural Fluid 47 Units/L (No Ref Range); Total Protein,Pleural Fluid < 2.0 g/dL
[2021-05-16] MEDS: *HR* Rivaroxaban 10 MG TABLET PO SCH (17:03)
[2021-05-16 17:41] LABS: RBC,Pleural Fluid < 2000 RBC/mcL
[2021-05-16 18:47] LABS: Appearance of Pleural Fl Clear (Clear); Basophils,Pleural Fluid 0 %; Eosinophils,Pleural Fluid 0 %; Lymphocytes,Pleural Fluid 60.4 %; Monocytes,Pleural Fluid 2.1 %
[2021-05-16] MEDS: Acetaminophen 325 MG TABLET PO PRN (21:54)
[2021-05-17] MEDS: Ipratropium/Albuterol Neb 3 ML IH SCH ×2 (03:29→10:47)
[2021-05-17 06:49] VITALS: TEMP 97.6
[2021-05-17] MEDS: Lactobacillus 1 EACH CAP.SPRINK PO SCH (07:57)
[2021-05-17] MEDS: *HR* OxyCODONE/APAP 5/325 TABLET PO PRN (07:57)
[2021-05-17] MEDS: Cholecalciferol (D-3) 1,000 UNIT (25MCG) TABLET PO SCH (07:58)
[2021-05-17] MEDS: levoFLOXacin 500 MG TABLET PO SCH (07:58)
[2021-05-17] MEDS: Linezolid 600 MG TABLET PO SCH (07:58)
[2021-05-17] MEDS: DilTIAZem CD (24hr) 120 MG CAP.ER.24H PO SCH (07:58)
[2021-05-17] MEDS: allopurinoL 100 MG TABLET PO SCH (07:58)
[2021-05-17] MEDS: Furosemide 40 MG/4 ML VIAL IVP SCH (07:58)
[2021-05-17] MEDS: Metoprolol XL (24 HR) Succ 50 MG TAB.ER.24H PO SCH (07:58)
[2021-05-17 08:01] LABS: White Blood Count 6.8 K/mcL (4.3-11.1)
[2021-05-17 08:02] LABS: Hematocrit 27.4 % (35.3-44.9); Hemoglobin 7.7 g/dL (11.5-15.4); Mean Corpuscular HGB Conc 28.1 g/dL (31.6-35.5); Mean Corpuscular Hemoglobin 27.2 pg (28.0-33.3); Mean Corpuscular Volume 96.8 fL (83.0-100.0); Mean Platelet Volume 10.5 fL (9.4-12.4); Monocytes # 0.5 K/mcL (0.0-1.3); Neutrophils # 4.6 K/mcL (1.6-8.9); Platelet Count 249 K/mcL (140-400); Red Blood Count 2.83 M/mcL (3.82-4.97)
[2021-05-17] MEDS: Piperacillin/Tazobactam 3.375 GM in 0.9 % Sodium Chloride Mini Bag 100 ML IVPB SCH (08:09)
[2021-05-17 08:20] LABS: Calcium 9.2 mg/dL (8.6-10.3); Potassium 3.7 mEq/L (3.5-5.1)
[2021-05-17 08:38] LABS: Basophils # 0.3 K/mcL (0.0-0.2); Eosinophils # 0.3 K/mcL (0.0-0.6); Lymphocytes # 1.1 K/mcL (0.6-4.6)
[2021-05-17 08:39] LABS: Anisocytosis 1+ (Not Present); Hypochromasia Present (Not Present); Platelet Estimate Normal (Normal); Poikilocytosis 1+ (Not Present)
[2021-05-17] MEDS: Budesonide/Formoterol 160/4.5 1 PUFF INH IH SCH (10:47)
[2021-05-17 11:40] VITALS: BP 102/60; PULSE 61; O2SAT 96
[2021-05-17] MEDS ORDERED: FLU Vac QV 21-22 (6Month+)/PF 0.5 ML SYRINGE IM ONE (13:17)
[2021-05-20 13:46] LABS: Fluid Source for Albumin PLEURAL
== END 2021-05-17 14:50 | disposition home health service (06) | DRG 853 ==
LOC: EMEROOARM 15:28 → 3ANU 15:28 → SUATTDRO 18:26 → 3ANU 20:01 → SUATTDRO 05-11 13:48 → 3ANU 05-16 19:16
PROVIDERS: ADMIT Pharmacist; ATTEND Pharmacist